=== PATIENT | male | born 1965 | race Caucasian/White ===

== ENCOUNTER 2017-04-17 13:55 | Emergency (ER) | payer MEDICAID, MEDICARE ==
[2017-04-17] MEDS ORDERED: ACETAMINOPHEN 500 MG TABLET PO STA (14:20)
--- NOTE | 2017-04-17 14:20 | ED Physician Documentation ---
History of Present Illness - Stated complaint Stated Complaint: FEVER - Chief complaint Chief Complaint: Fever - Additonal information Additional information: hx from pt fairly healthy 51 male fever and chills and fatigue and myalgia X 4 days no cough no NVD no urinary sx no rash recent travel within [place] Review of Systems Constitutional: reports: Fever, Myalgias, Fatigue Ears: denies: Ear pain Throat: denies: Sore throat Respiratory: denies: Dyspnea, Cough GI: denies: Nausea, Vomiting, Diarrhea : denies: Dysuria Musculoskeletal: denies: Neck pain Neurologic: reports: Generalized weakness. denies: Headache Endocrine: denies: Easy bruising / bleeding Immunocompromised: denies: Immunocompromised PD PAST MEDICAL HISTORY - Past Medical History Cardiovascular: Hypertension, High cholesterol, Atrial fibrillation Respiratory: COPD GI: GERD Psych: Depression, Anxiety, Bipolar disorder - Past Surgical History Past Surgical History: Yes - Present Medications Home Medications: Ambulatory Orders Medication Instructions Recorded Confirmed Albuterol Sulf [Ventolin Hfa 3 puffs PO DAILY 02/16/17 02/16/17 Inhaler] Buspirone HCl 10 mg PO TID 02/16/17 02/16/17 Cyclobenzaprine [Flexeril] 10 mg PO DAILY PM 02/16/17 02/16/17 FLUoxetine [PROzac] 10 mg PO DAILY 02/16/17 02/16/17 Famotidine 20 mg PO DAILY 02/16/17 02/16/17 Fenofibrate 160 mg PO DAILY 02/16/17 02/16/17 Fluticasone [Flonase] 2 spray ROSSY DAILY 02/16/17 02/16/17 Gabapentin 500 mg PO TID 02/16/17 02/16/17 Montelukast [Singulair] 10 mg PO DAILY 02/16/17 02/16/17 Pramipexole [Mirapex] 0.25 mg PO DAILY PM 02/16/17 02/16/17 Pravastatin [Pravachol] 20 mg PO DAILY PM 02/16/17 02/16/17 Propranolol ER [Inderal LA] 80 mg PO BID 02/16/17 02/16/17 QUEtiapine [SEROquel] 200 mg PO DAILY PM 02/16/17 02/16/17 traZODone [Desyrel] 50 mg PO DAILY PM 02/16/17 02/16/17 Amox/Clav 875/125 [Augmentin 1 tab PO BID 04/17/17 04/17/17 875/125] Azithromycin [Zithromax] 250 mg PO DAILY #6 tablet 04/17/17 - Allergies Allergies/Adverse Reactions: Allergies Allergy/AdvReac Type Severity Reaction Status Date / Time No Known Drug Allergies Allergy Verified 04/17/17 14:04 - Social History Does the pt smoke?: No Smoking Status: Never smoker Does the pt drink ETOH?: Yes Does the pt have substance abuse?: No - Immunizations Immunizations are current?: Yes - POLST Patient has POLST: No PD ED PE NORMAL - Vitals Vital signs reviewed: Yes - General General: Alert and oriented X 3 - HEENT HEENT: PERRL, Moist mucous membranes, Pharynx benign - Neck Neck: Supple, no meningeal sign - Cardiac Cardiac: RRR - Respiratory Respiratory: No respiratory distress, Clear bilaterally - Abdomen Abdomen: Soft, Non tender - Derm Derm: Normal color, No rash - Extremities Extremities: No deformity - Neuro Neuro: Alert and oriented X 3 Results - Vitals Vitals: Vital Signs - 24 hr 04/17/17 14:01 Temperature 38.9 C H Heart Rate 89 Respiratory 16 Rate Blood Pressure 144/54 H O2 Saturation 97 Oxygen O2 Source Room air - Labs Labs: Laboratory Tests 04/17/17 04/17/17 14:30 14:30 Urine Color YELLOW Urine Clarity CLEAR Urine pH 7.0 Ur Specific [place] 1.015 Urine Protein NEGATIVE Urine Glucose (UA) NEGATIVE Urine Ketones NEGATIVE Urine Occult Blood NEGATIVE Urine Nitrite NEGATIVE Urine Bilirubin NEGATIVE Urine Urobilinogen 0.2 (NORMAL) Ur Leukocyte Esterase NEGATIVE Ur Microscopic Review NOT INDICATED Urine Culture Comments NOT INDICATED Influenza A (Rapid) Negative Influenza B (Rapid) Negative Influenza Types A,B Ag - PD MEDICAL DECISION MAKING - ED course ED course: fairly healthy 51 male with fever chills myalgias but no SWAIN or stiff neck no sore throat no cough no abd pain NVD no urinary sx my be viral, may be influenza will check common sources UA flu CXR CXR shows a small basliar infiltartes per rad read will tx with zmax Departure - Departure Disposition: 01 Home, Self Care Clinical Impression: Pneumonia Qualifiers: Pneumonia type: due to unspecified organism Laterality: unspecified laterality Lung location: unspecified part of lung Qualified Code(s): J18.9 - Pneumonia, unspecified organism Condition: Good Instructions: ED Fever Control, ED Pneumonia Adult Follow-Up: Jeff Lazaro MD [Primary Care Provider] - Prescriptions: Azithromycin [Zithromax] 250 mg PO DAILY #6 tablet Comments: The influenza swabs were negative and the urine did not show an infection But the chest xary shows a small area concerning for pneumonia developing. So I have prescribed antibiotics. Also recommend tylenol and motrin as needed for fever and body aches Follow up with your PMD for a recheck this week. Return to the ER if worse or new symptoms develop
[2017-04-17 14:38] LABS: BILIRUBIN,URINE NEGATIVE (NEGATIVE); GLUCOSE, URINE (UA) NEGATIVE (NEGATIVE); KETONES,URINE (UA) NEGATIVE (NEGATIVE); LEUKOCYTE ESTERASE, URINE NEGATIVE (NEGATIVE); NITRITE,URINE NEGATIVE (NEGATIVE); OCCULT BLOOD,URINE NEGATIVE (NEGATIVE); PROTEIN,URINE NEGATIVE (NEGATIVE); UROBILINOGEN,URINE 0.2 (NORMAL) E.U./dL (NORMAL)
[2017-04-17 14:40] LABS: CLARITY,URINE CLEAR (CLEAR)
--- NOTE | 2017-04-17 15:11 | XRAY Report ---
EXAM: CHEST RADIOGRAPHY EXAM DATE: 04/17/2017 02:53 PM. CLINICAL HISTORY: Fever. COMPARISON: 02/16/2017. TECHNIQUE: 2 views. FINDINGS: Lungs/Pleura: Lung volumes are somewhat low. There is mild bibasal opacity, atelectasis versus infilt rate. No convincing pleural effusion or pneumothorax. Mediastinum: Heart and mediastinal contours are unremarkable. Other: None. IMPRESSION: Somewhat low lung volumes with mild bibasal opacity, atelectasis versus infiltrate. [facility] Referring Provider Line: [phone] SITE ID: [id number]
--- NOTE | 2017-04-17 15:11 | XRAY Preliminary Report ---
Exam: XR CHEST 2 VIEW X-RAY IMPRESSION: Somewhat low lung volumes with mild bibasal opacity, atelectasis versus infiltrate. [facility] SITE ID: [id number]
[2017-04-17 15:29] VITALS: BP 116/72
== END 2017-04-17 15:28 | disposition home or self-care (01) ==
LOC: ED 13:55
DX: J18.9 Pneumonia, unspecified organism (principal); J44.0 Chronic obstructive pulmonary disease with (acute) lower respiratory infection; I10 Essential (primary) hypertension; E78.00 Pure hypercholesterolemia, unspecified
CPT/HCPCS: 71046; 81003; 87275; 87276; 99283; A9270; 81001; 87086

== ENCOUNTER 2017-07-13 08:00 | Outpatient (CLI) | payer MEDICARE ==
[2017-07-13 12:38] LABS: BASOPHILS % (AUTO) 0.3 %; EOSINOPHILS # (AUTO) 0.1 10^3/uL (0.0-0.7); EOSINOPHILS % (AUTO) 2.2 %; HGB - HEMOGLOBIN 13.3 g/dL (14.0-18.0); LYMPHOCYTES # (AUTO) 1.5 10^3/uL (1.5-3.5); LYMPHOCYTES % (AUTO) 26.6 %; MEAN CORPUSCULAR HEMOGLOBIN 30.3 pg (27.0-31.0); MEAN CORPUSCULAR HGB CONC 34.7 g/dL (32.0-36.0); MEAN CORPUSCULAR VOLUME 87.2 fL (80.0-94.0); MEAN PLATELET VOLUME 8.1 fL (7.4-11.4); MONOCYTES # (AUTO) 0.5 10^3/uL (0.0-1.0); MONOCYTES % (AUTO) 9.5 %; NEUTROPHILS # (AUTO) 3.5 10^3/uL (1.5-6.6); NEUTROPHILS % (AUTO) 61.4 %; PLT - PLATELET COUNT 201 10^3/uL (130-450); RED BLOOD COUNT 4.39 10^6/uL (4.70-6.10); RED CELL DISTRIBUTION WIDTH 13.9 % (12.0-15.0); WHITE BLOOD COUNT 5.6 x10^3/uL (4.8-10.8)
[2017-07-13 13:01] LABS: ALBUMIN 4.1 g/dL (3.2-5.5); ALBUMIN/GLOBULIN RATIO 1.2 (1.0-2.2); ALKALINE PHOSPHATASE 40 IU/L (42-121); ALT ALANINE AMINOTRANSFERASE 30 IU/L (10-60); AST ASPARTATE AMINOTRANSFERASE 33 IU/L (10-42); BILIRUBIN,TOTAL 0.6 mg/dL (0.2-1.0); BUN - BLOOD UREA NITROGEN 20 mg/dL (6-20); CALCIUM 9.1 mg/dL (8.5-10.3); CARBON DIOXIDE - CO2 24 mmol/L (21-32); CHLORIDE 103 mmol/L (101-111); CHOL/HDL RATIO 4.4 (<5.0); CHOLESTEROL 149 mg/dL; CREATININE 1.2 mg/dL (0.6-1.2); GFR - MDRD 64 (>89); GLUCOSE 104 mg/dL (70-100); HDL CHOLESTEROL 34 mg/dL; LDL CHOLESTEROL,CALCULATED 92 mg/dL; LDL/HDL RATIO 2.7 (<3.6); SODIUM 133 mmol/L (135-145); TOTAL PROTEIN 7.6 g/dL (6.7-8.2); VLDL CHOLESTEROL 23 mg/dL
== END 2017-07-13 08:01 | disposition home or self-care (01) ==
LOC: LAB.WCP 08:00
PROVIDERS: ATTEND Family Medicine
DX: Z12.5 Encounter for screening for malignant neoplasm of prostate (principal); E78.5 Hyperlipidemia, unspecified; J45.998 Other asthma; M54.5 Low back pain; F31.9 Bipolar disorder, unspecified
CPT/HCPCS: 36415; 80053; 80061; 84443; 85025; G0103; 83721; 84153

== ENCOUNTER 2017-07-18 13:58 | Outpatient (CLI) | payer MEDICARE, MEDICAID | END 2017-07-18 13:59 | disposition home or self-care (01) | LOC: SC 13:58 | PROVIDERS: ATTEND Internal Medicine Pulmonary Disease | DX: G47.33 Obstructive sleep apnea (adult) (pediatric) (principal) | CPT/HCPCS: 99203; G0463; 99212 ==

== ENCOUNTER 2017-08-11 09:44 | Outpatient (CLI) | payer MEDICARE, MEDICAID ==
[2017-08-11 13:20] LABS: BASOPHILS % (AUTO) 0.3 %; EOSINOPHILS # (AUTO) 0.2 10^3/uL (0.0-0.7); HGB - HEMOGLOBIN 13.5 g/dL (14.0-18.0); LYMPHOCYTES # (AUTO) 1.6 10^3/uL (1.5-3.5); LYMPHOCYTES % (AUTO) 25.8 %; MEAN CORPUSCULAR HEMOGLOBIN 30.2 pg (27.0-31.0); MEAN CORPUSCULAR HGB CONC 34.4 g/dL (32.0-36.0); MEAN PLATELET VOLUME 8.2 fL (7.4-11.4); MONOCYTES # (AUTO) 0.5 10^3/uL (0.0-1.0); MONOCYTES % (AUTO) 7.3 %; NEUTROPHILS % (AUTO) 63.6 %; PLT - PLATELET COUNT 196 10^3/uL (130-450); RED BLOOD COUNT 4.45 10^6/uL (4.70-6.10); RED CELL DISTRIBUTION WIDTH 13.6 % (12.0-15.0); WHITE BLOOD COUNT 6.3 x10^3/uL (4.8-10.8)
[2017-08-11 13:46] LABS: ALBUMIN 4.2 g/dL (3.2-5.5); ALBUMIN/GLOBULIN RATIO 1.2 (1.0-2.2); ALKALINE PHOSPHATASE 37 IU/L (42-121); ALT ALANINE AMINOTRANSFERASE 33 IU/L (10-60); AST ASPARTATE AMINOTRANSFERASE 38 IU/L (10-42); BILIRUBIN,TOTAL 0.6 mg/dL (0.2-1.0); BUN - BLOOD UREA NITROGEN 18 mg/dL (6-20); CARBON DIOXIDE - CO2 26 mmol/L (21-32); CHLORIDE 99 mmol/L (101-111); CHOL/HDL RATIO 4.5 (<5.0); CHOLESTEROL 166 mg/dL; CREATININE 1.4 mg/dL (0.6-1.2); GFR - MDRD 53 (>89); GLUCOSE 89 mg/dL (70-100); HDL CHOLESTEROL 37 mg/dL; LDL CHOLESTEROL,CALCULATED 100 mg/dL; LDL/HDL RATIO 2.7 (<3.6); SODIUM 132 mmol/L (135-145); TOTAL PROTEIN 7.7 g/dL (6.7-8.2); VLDL CHOLESTEROL 29 mg/dL
== END 2017-08-11 09:45 | disposition home or self-care (01) ==
LOC: LAB.WCP 09:44
PROVIDERS: ATTEND Family Medicine
DX: E78.5 Hyperlipidemia, unspecified (principal); J45.998 Other asthma; M54.5 Low back pain; F31.9 Bipolar disorder, unspecified
CPT/HCPCS: 36415; 80053; 80061; 83721; 84443; 85025

== ENCOUNTER 2017-11-16 23:57 | Outpatient (CLI) | payer MEDICARE, MEDICAID ==
[2017-11-16 18:49] LABS: BASOPHILS % (AUTO) 0.4 %; EOSINOPHILS # (AUTO) 0.2 10^3/uL (0.0-0.7); EOSINOPHILS % (AUTO) 2.9 %; HGB - HEMOGLOBIN 13.4 g/dL (14.0-18.0); LYMPHOCYTES # (AUTO) 1.5 10^3/uL (1.5-3.5); LYMPHOCYTES % (AUTO) 25.2 %; MEAN CORPUSCULAR HEMOGLOBIN 30.8 pg (27.0-31.0); MEAN CORPUSCULAR HGB CONC 34.3 g/dL (32.0-36.0); MEAN CORPUSCULAR VOLUME 89.8 fL (80.0-94.0); MEAN PLATELET VOLUME 8.1 fL (7.4-11.4); MONOCYTES # (AUTO) 0.5 10^3/uL (0.0-1.0); MONOCYTES % (AUTO) 8.7 %; NEUTROPHILS # (AUTO) 3.6 10^3/uL (1.5-6.6); NEUTROPHILS % (AUTO) 62.8 %; PLT - PLATELET COUNT 189 10^3/uL (130-450); RED BLOOD COUNT 4.34 10^6/uL (4.70-6.10); RED CELL DISTRIBUTION WIDTH 14.1 % (12.0-15.0); WHITE BLOOD COUNT 5.8 x10^3/uL (4.8-10.8)
[2017-11-16 19:07] LABS: ALBUMIN/GLOBULIN RATIO 1.1 (1.0-2.2); BILIRUBIN,TOTAL 0.8 mg/dL (0.2-1.0); CALCIUM 9.3 mg/dL (8.5-10.3); CREATININE 1.2 mg/dL (0.6-1.2); TOTAL PROTEIN 7.6 g/dL (6.7-8.2)
== END 2017-11-16 23:58 | disposition home or self-care (01) ==
LOC: LAB.WCP 23:57
PROVIDERS: ATTEND Family Medicine
DX: R06.09 Other forms of dyspnea (principal); G47.9 Sleep disorder, unspecified; M54.5 Low back pain; F31.9 Bipolar disorder, unspecified
CPT/HCPCS: 36415; 80053; 83880; 84443; 85025

== ENCOUNTER 2017-11-17 14:44 | Outpatient (CLI) | payer MEDICARE, MEDICAID ==
[2017-11-17 19:23] LABS: RHEUMATOID FACTOR NEGATIVE (Negative)
[2017-11-17 19:38] LABS: URIC ACID 5.9 mg/dL (2.6-7.2)
[2017-11-17 19:50] LABS: CRP - C-REACTIVE PROTEIN < 1.0 mg/dL (0-1.0)
== END 2017-11-17 14:45 | disposition home or self-care (01) ==
LOC: LAB.WCP 14:44
PROVIDERS: ATTEND Family Medicine
DX: M25.50 Pain in unspecified joint (principal)
CPT/HCPCS: 36415; 84550; 85651; 86140; 86430

== ENCOUNTER 2017-12-01 18:29 | Emergency (ER) | payer MEDICARE, MEDICAID ==
--- NOTE | 2017-12-01 20:19 | ED Physician Documentation ---
PD HPI BACK INJURY - Stated complaint Stated Complaint: BACK PX - History obtained from History obtained from: Patient - History of Present Illness Location: Left, Lower Type of injury: Fall (he says board on deck broke and he fell backward (did not fall through deck or such). He had twist and then fell back, but denies significant impact to back. Pain in left lower back developed more a couple of hours after the injury after resting.) Where injury occurred: Home Timing - onset: Today Timing - duration: Hours Timing - details: Abrupt onset, Still present, Waxing and waning Review of Systems Constitutional: denies: Fever, Chills, Myalgias Cardiac: denies: Chest pain / pressure Respiratory: denies: Dyspnea, Cough GI: denies: Abdominal Pain, Vomiting, Diarrhea Skin: denies: Abrasion (s), Laceration (s) Musculoskeletal: reports: Back pain. denies: Neck pain Neurologic: denies: Focal weakness, Numbness, Altered mental status, Headache, Head injury PD PAST MEDICAL HISTORY - Past Medical History Cardiovascular: Hypertension, High cholesterol, Atrial fibrillation Respiratory: COPD GI: GERD Psych: Depression, Anxiety, Bipolar disorder - Past Surgical History Past Surgical History: Yes - Present Medications Home Medications: Ambulatory Orders Medication Instructions Recorded Confirmed Albuterol Sulf [Ventolin Hfa 3 puffs PO DAILY 02/16/17 02/16/17 Inhaler] Buspirone HCl 17,515 mg PO TID 02/16/17 02/16/17 Cyclobenzaprine [Flexeril] 10 mg PO DAILY PM 02/16/17 02/16/17 FLUoxetine [PROzac] 10 mg PO DAILY 02/16/17 02/16/17 Famotidine 20 mg PO DAILY 02/16/17 02/16/17 Fenofibrate 160 mg PO DAILY 02/16/17 02/16/17 Fluticasone [Flonase] 2 spray ROSSY DAILY 02/16/17 02/16/17 Gabapentin 500 mg PO TID 02/16/17 02/16/17 Montelukast [Singulair] 10 mg PO DAILY 02/16/17 02/16/17 Pramipexole [Mirapex] 0.25 mg PO DAILY PM 02/16/17 02/16/17 Pravastatin [Pravachol] 20 mg PO DAILY PM 02/16/17 02/16/17 Propranolol ER [Inderal LA] 80 mg PO BID 02/16/17 02/16/17 QUEtiapine [SEROquel] 200 mg PO DAILY PM 02/16/17 02/16/17 traZODone [Desyrel] 50 mg PO DAILY PM 02/16/17 02/16/17 Dexamethasone [Decadron] 4 mg PO DAILY #5 tablet 12/01/17 Finasteride 5 mg PO 12/01/17 HYDROcod/ACETAM 5/325 [[place] 5/325] 1 tab PO Q6H PRN #15 tablet 12/01/17 buPROPion [Wellbutrin Sr] 100 mg PO DAILY 12/01/17 12/01/17 diazePAM [Diazepam] 5 mg ORAL BID 12/01/17 12/01/17 diazePAM [Diazepam] 5 mg PO TID PRN #20 tablet 12/01/17 - Allergies Allergies/Adverse Reactions: Allergies Allergy/AdvReac Type Severity Reaction Status Date / Time No Known Drug Allergies Allergy Verified 12/01/17 19:49 - Social History Does the pt smoke?: No Smoking Status: Never smoker Does the pt drink ETOH?: Yes Does the pt have substance abuse?: No - Immunizations Immunizations are current?: Yes - POLST Patient has POLST: No PD ED PE NORMAL - Vitals Vital signs reviewed: Yes - General General: Alert and oriented X 3, Well developed/nourished, Other (appears uncomfortable with ROM of low back; not appearing in much pain with rest. ) - HEENT HEENT: Atraumatic - Neck Neck: Supple, no meningeal sign, No bony TTP - Cardiac Cardiac: RRR, No murmur - Respiratory Respiratory: Clear bilaterally, Other (no chestwall tenderness. ) - Abdomen Abdomen: Soft, Non tender - Back Back: No CVA TTP, No spinal TTP, Other (tender in left lower lumbar muscles without obfious deformity. ) - Derm Derm: Normal color, Warm and dry - Extremities Extremities: No deformity, No tenderness to palpate, Normal ROM s pain, No edema , No calf tenderness / cord - Neuro Neuro: Alert and oriented X 3, No motor deficit, No sensory deficit, Normal speech, Other (normal reflexes at knees. ) Results - Vitals Vitals: Oxygen O2 Source Room air PD MEDICAL DECISION MAKING - ED course Complexity details: reviewed old records ([facility]), reviewed results (shared decision to not get imaging as very low suspicion for bony injury anew. ), considered differential (he does not feel he injured/impacted enough for cocner of fracture. Feels it is muscular. ), d/w patient - Sepsis Event Vital Signs: Oxygen O2 Source Room air Departure - Departure Disposition: 01 Home, Self Care Clinical Impression: Low back strain Qualifiers: Encounter type: initial encounter Qualified Code(s): S39.012A - Strain of muscle, fascia and tendon of lower back, initial encounter Accidental fall Qualifiers: Encounter type: initial encounter Qualified Code(s): W19.XXXA - Unspecified fall, initial encounter Condition: Stable Record reviewed to determine appropriate education?: Yes Instructions: ED Sprain Strain Lumbar Follow-Up: Jeff Lazaro MD [Primary Care Provider] - Prescriptions: Dexamethasone [Decadron] 4 mg PO DAILY #5 tablet diazePAM [Diazepam] 5 mg PO TID PRN #20 tablet PRN Reason: Spasms HYDROcod/ACETAM 5/325 [[place] 5/325] 1 tab PO Q6H PRN #15 tablet PRN Reason: Pain Comments: Heat and gentle stretching for the low back. Physical treatment such as chiropractic and massage would be great. He can use ibuprofen or naproxen 2-3 times a day. Add diazepam if needed for muscle spasms and hydrocodone if needed for pain. Decadron anti-inflammatory daily for 5 more days. Recheck with your primary care if not improved over the next few days to week with these treatments. Discharge Date/Time: 12/01/17 21:52
[2017-12-01] MEDS ORDERED: KETOROLAC 30 MG/ML VIAL IM STA (20:46)
[2017-12-01] MEDS ORDERED: HYDROmorphone 2 MG/ML VIAL IM STA (20:46)
[2017-12-01] MEDS ORDERED: diazePAM 5 MG TABLET PO STA (20:48)
[2017-12-01] MEDS ORDERED: DEXAMETHASONE 10 MG/ML VIAL PO STA (20:48)
[2017-12-01 21:44] VITALS: BP 121/75
== END 2017-12-01 21:52 | disposition home or self-care (01) ==
LOC: ED 18:29
DX: S39.012A Strain of muscle, fascia and tendon of lower back, initial encounter (principal); W17.89XA Other fall from one level to another, initial encounter; X50.9XXA Other and unspecified overexertion or strenuous movements or postures, initial encounter; Y93.01 Activity, walking, marching and hiking; Y92.007 Garden or yard of unspecified non-institutional (private) residence as the place of occurrence of the external cause; I10 Essential (primary) hypertension; E78.00 Pure hypercholesterolemia, unspecified
CPT/HCPCS: 96372; 99283; A9270; J1170

== ENCOUNTER 2018-01-19 11:44 | Outpatient (CLI) | payer MEDICARE, MEDICAID ==
[2018-01-20 13:48] LABS: HEPATITIS A IGM NON-REACTIVE (NON-REACTIVE); HEPATITIS B CORE ANTIBODY IGM NON-REACTIVE (NON-REACTIVE); HEPATITIS B SURFACE ANTIGEN NON-REACTIVE (NON-REACTIVE); HEPATITIS C ANTIBODY NON-REACTIVE (NON-REACTIVE)
== END 2018-01-19 11:45 | disposition home or self-care (01) ==
LOC: LAB.WCP 11:44
PROVIDERS: ATTEND Family Medicine
DX: Z78.9 Other specified health status (principal)
CPT/HCPCS: 36415; 80074

== ENCOUNTER 2018-03-11 10:37 | Emergency (ER) | payer MEDICARE, MEDICAID ==
[2018-03-11 11:01] VITALS: BP 121/69
[2018-03-11] MEDS ORDERED: KETOROLAC 60 MG/2 ML VIAL IM STA (12:05)
--- NOTE | 2018-03-11 12:07 | ED Physician Documentation ---
PD HPI BACK PAIN - Stated complaint Stated Complaint: BACK PX - Chief complaint Chief Complaint: Back Pain - History obtained from History obtained from: Patient - History of Present Illness Timing - onset: Other (52-year-old gentleman with chronic recurrent back pain presents with flare of back pain that started after sweeping a floor 3 days ago. It is in the right lumbar area. It does not radiate. There is no associated weakness, numbness, or tingling in the legs or groin. No saddle anesthesia or fevers or incontinence.) Review of Systems Constitutional: denies: Fever, Chills Respiratory: denies: Dyspnea, Cough GI: denies: Abdominal Pain, Nausea, Vomiting PD PAST MEDICAL HISTORY - Past Medical History Past Medical History: Yes Cardiovascular: Hypertension, High cholesterol, Atrial fibrillation Respiratory: COPD Neuro: None Endocrine/Autoimmune: None GI: GERD : None HEENT: None Psych: Depression, Anxiety, Bipolar disorder Musculoskeletal: Osteoarthritis, Fibromyalgia, Chronic back pain Derm: None - Past Surgical History Past Surgical History: Yes Ortho: Spine surgery, Other - Present Medications Home Medications: Ambulatory Orders Medication Instructions Recorded Confirmed Albuterol Sulf [Ventolin Hfa 3 puffs PO DAILY 02/16/17 02/16/17 Inhaler] Buspirone HCl 1 tab PO TID 02/16/17 02/16/17 Cyclobenzaprine [Flexeril] 10 mg PO DAILY PM 02/16/17 02/16/17 FLUoxetine [PROzac] 20 mg PO DAILY 02/16/17 02/16/17 Famotidine 20 mg PO DAILY 02/16/17 02/16/17 Fenofibrate 160 mg PO DAILY 02/16/17 02/16/17 Fluticasone [Flonase] 2 spray ROSSY DAILY 02/16/17 03/11/18 Gabapentin 500 mg PO TID 02/16/17 03/11/18 Montelukast [Singulair] 10 mg PO DAILY 02/16/17 03/11/18 Pramipexole [Mirapex] 0.25 mg PO DAILY PM 02/16/17 03/11/18 Pravastatin [Pravachol] 20 mg PO DAILY PM 02/16/17 03/11/18 Propranolol ER [Inderal LA] 80 mg PO BID 02/16/17 03/11/18 QUEtiapine [SEROquel] 200 mg PO DAILY PM 02/16/17 03/11/18 traZODone [Desyrel] 50 mg PO DAILY PM PRN 02/16/17 03/11/18 Finasteride 2.5 mg PO 12/01/17 buPROPion [Wellbutrin Sr] 175 mg PO DAILY 12/01/17 12/01/17 diazePAM [Diazepam] 5 mg ORAL BID 12/01/17 03/11/18 Hydrocodone/Acetaminophen 1 - 2 each PO Q6H PRN #10 tablet 03/11/18 [Hydrocodon-Acetaminophen 5-325] Ramelteon [Rozerem] 1 tab ORAL DAILY 03/11/18 03/11/18 - Allergies Allergies/Adverse Reactions: Allergies Allergy/AdvReac Type Severity Reaction Status Date / Time No Known Drug Allergies Allergy Verified 03/11/18 11:01 - Social History Does the pt smoke?: No Smoking Status: Former smoker Does the pt drink ETOH?: No Does the pt have substance abuse?: No - Immunizations Immunizations are current?: Yes - POLST Patient has POLST: No PD ED PE NORMAL - Vitals Vital signs reviewed: Yes - General General: Alert and oriented X 3, No acute distress - Abdomen Abdomen: Normal bowel sounds, Soft, Non tender - Back Back: No spinal TTP, Other (Muscular tenderness of the right paralumbar muscles. The patient has equal and normal Achilles and patellar reflexes bilaterally. Normal sensation in all areas of the legs. Patient denies saddle anesthesia. Normal strength in flexion-extension at the ankles, knees, and flexion of the hips.) - Neuro Neuro: Alert and oriented X 3, Normal speech Results - Vitals Vitals: Vital Signs - 24 hr 03/11/18 10:59 Temperature 35.7 C L Heart Rate 76 Respiratory 15 Rate Blood Pressure 121/69 O2 Saturation 96 Oxygen O2 Source Room air PD MEDICAL DECISION MAKING - ED course ED course: This patient has seemingly uncomplicated musculoskeletal back pain. The patient has no "red flags." Specifically denies IV drug use, fevers, incontinence, saddle anesthesia. Spinal epidural abscess was considered, given that the patient has no fever, is not diabetic, has no spinal tenderness, does not use IV drugs, and has no bilateral neurologic symptoms, the diagnosis of spinal epidural abscess is considered exceedingly unlikely. The [place] prescription monitoring program was queried with regard to this patient. No concerning findings were found. Departure - Departure Disposition: 01 Home, Self Care Clinical Impression: Low back strain Qualifiers: Encounter type: initial encounter Qualified Code(s): S39.012A - Strain of muscle, fascia and tendon of lower back, initial encounter Condition: Good Record reviewed to determine appropriate education?: Yes Instructions: ED Low Back Pain Injury Prescriptions: Hydrocodone/Acetaminophen [Hydrocodon-Acetaminophen 5-325] 1 - 2 each PO Q6H PRN #10 tablet PRN Reason: pain Comments: Call your doctor to arrange a follow-up appointment, make the next available appointment. In the interim, return anytime if worse or if new symptoms develop. Do not drink or drive while taking narcotic pain medication. Note that many narcotic pain relievers also contain Tylenol/acetaminophen. Please ensure that your total dose of acetaminophen from all sources does not exceed 3 g (3000 mg) per day. You may get constipated while on this medication. Take a stool softener such as Colace twice a day while you are on it. Also add an [id number] laxative such as senna or MiraLAX on any day that you do not have a bowel movement. If you received a narcotic pain medication or sedative while in the emergency department, do not drive for the next 24 hours.
== END 2018-03-11 12:35 | disposition home or self-care (01) ==
LOC: ED 10:37
DX: S39.012A Strain of muscle, fascia and tendon of lower back, initial encounter (principal); X58.XXXA Exposure to other specified factors, initial encounter; Z87.891 Personal history of nicotine dependence
CPT/HCPCS: 96372; 99283

== ENCOUNTER 2018-05-01 14:19 | Outpatient (CLI) | payer MEDICARE, MEDICAID | END 2018-05-01 14:20 | disposition home or self-care (01) | LOC: SC 14:19 | PROVIDERS: ATTEND Internal Medicine Pulmonary Disease | DX: G47.33 Obstructive sleep apnea (adult) (pediatric) (principal) | CPT/HCPCS: 99213; G0463; 99212 ==

== ENCOUNTER 2018-05-13 19:20 | Emergency (ER) | payer MEDICARE, MEDICAID ==
--- NOTE | 2018-05-13 19:50 | ED Physician Documentation ---
PD HPI URI - Stated complaint Stated Complaint: COUGH/RUNNY NOSE - Chief complaint Chief Complaint: Resp - History obtained from History obtained from: Patient, Caregiver - History of Present Illness Timing - onset: Other (Is been sick for 2 days, it started with a tickle in his throat and developed more sore throat. Feels like his voice is deeper and he has just a bit of a cough without shortness of breath. He has had chills but no measured fevers. No body aches.) Review of Systems Constitutional: reports: Chills. denies: Fever Nose: reports: Rhinorrhea / runny nose Throat: reports: Sore throat Respiratory: reports: Dyspnea. denies: Cough (mild) PD PAST MEDICAL HISTORY - Past Medical History Past Medical History: No Cardiovascular: Hypertension, High cholesterol, Atrial fibrillation Respiratory: COPD Neuro: None Endocrine/Autoimmune: None GI: GERD : None HEENT: None Psych: Depression, Anxiety, Bipolar disorder Musculoskeletal: Osteoarthritis, Fibromyalgia, Chronic back pain Derm: None - Past Surgical History Past Surgical History: Yes Ortho: Arthroscopic surgery, Spine surgery, Other - Present Medications Home Medications: Ambulatory Orders Medication Instructions Recorded Confirmed Albuterol Sulf [Ventolin Hfa 3 puffs PO DAILY 02/16/17 02/16/17 Inhaler] Buspirone HCl 1 tab PO TID 02/16/17 02/16/17 Cyclobenzaprine [Flexeril] 10 mg PO DAILY PM 02/16/17 02/16/17 Famotidine 20 mg PO DAILY 02/16/17 02/16/17 Fenofibrate 160 mg PO DAILY 02/16/17 02/16/17 Fluticasone [Flonase] 2 spray ROSSY DAILY 02/16/17 03/11/18 Montelukast [Singulair] 10 mg PO DAILY 02/16/17 03/11/18 Pramipexole [Mirapex] 0.25 mg PO DAILY PM 02/16/17 03/11/18 Pravastatin [Pravachol] 20 mg PO DAILY PM 02/16/17 03/11/18 Propranolol ER [Inderal LA] 80 mg PO BID 02/16/17 03/11/18 QUEtiapine [SEROquel] 200 mg PO DAILY PM 02/16/17 03/11/18 traZODone [Desyrel] 50 mg PO DAILY PM PRN 02/16/17 03/11/18 Finasteride 2.5 mg PO 12/01/17 buPROPion [Wellbutrin Sr] 175 mg PO DAILY 12/01/17 12/01/17 diazePAM [Diazepam] 5 mg ORAL BID 12/01/17 03/11/18 Ramelteon [Rozerem] 1 tab ORAL DAILY 03/11/18 03/11/18 - Allergies Allergies/Adverse Reactions: Allergies Allergy/AdvReac Type Severity Reaction Status Date / Time acetaminophen [From Vicodin] AdvReac Emesis Verified 05/13/18 19:26 hydrocodone [From Vicodin] AdvReac Emesis Verified 05/13/18 19:26 - Social History Does the pt smoke?: No Smoking Status: Former smoker Does the pt drink ETOH?: No Does the pt have substance abuse?: No - Immunizations Immunizations are current?: Yes - POLST Patient has POLST: No PD ED PE NORMAL - Vitals Vital signs reviewed: Yes - General General: Alert and oriented X 3, No acute distress - HEENT HEENT: Ears normal, Pharynx benign - Neck Neck: Supple, no meningeal sign, No bony TTP - Cardiac Cardiac: RRR, No murmur - Respiratory Respiratory: No respiratory distress, Clear bilaterally - Abdomen Abdomen: Non tender - Derm Derm: No rash - Neuro Neuro: Alert and oriented X 3, Normal speech Results - Vitals Vitals: Vital Signs - 24 hr 05/13/18 19:23 Temperature 36.5 C Heart Rate 74 Respiratory 18 Rate Blood Pressure 141/67 H O2 Saturation 97 Oxygen O2 Source Room air - Labs Labs: Laboratory Tests 05/13/18 05/13/18 19:59 19:59 Influenza A (Rapid) Negative Influenza B (Rapid) Negative Group A Strep Rapid Negative Departure - Departure Disposition: 01 Home, Self Care Clinical Impression: Upper respiratory tract infection Qualifiers: URI type: unspecified viral URI Qualified Code(s): J06.9 - Acute upper respiratory infection, unspecified Condition: Good Record reviewed to determine appropriate education?: Yes Instructions: ED Upper Resp Infec No Abx Tx Comments: Continue the conservative treatments recommended by her pharmacist. Return for new or worsening symptoms. Follow-up with your doctor at the end of the week if not better.
[2018-05-13 20:29] VITALS: BP 130/68
== END 2018-05-13 20:29 | disposition home or self-care (01) ==
LOC: ED 19:20
DX: J06.9 Acute upper respiratory infection, unspecified (principal); J44.9 Chronic obstructive pulmonary disease, unspecified; Z87.891 Personal history of nicotine dependence; I10 Essential (primary) hypertension
CPT/HCPCS: 87070; 87275; 87276; 87430; 99282; 99283

== ENCOUNTER 2018-06-07 13:23 | Outpatient (CLI) | payer MEDICARE, MEDICAID | END 2018-06-07 13:24 | disposition home or self-care (01) | LOC: SC 13:23 | PROVIDERS: ATTEND Internal Medicine Pulmonary Disease | DX: G47.33 Obstructive sleep apnea (adult) (pediatric) (principal) | CPT/HCPCS: 99213; G0463; 99212 ==

== ENCOUNTER 2018-09-08 15:29 | Emergency (ER) | payer MEDICARE, MEDICAID ==
[2018-09-08 15:44] VITALS: BP 121/65
[2018-09-08] MEDS ORDERED: DEXAMETHASONE 10 MG/ML VIAL PO STA (16:09)
[2018-09-08] MEDS ORDERED: CHERRY SYRUP 10 ML UDC PO ONE (16:09)
[2018-09-08] MEDS ORDERED: KETOROLAC 60 MG/2 ML VIAL IM STA (16:09)
--- NOTE | 2018-09-08 16:13 | ED Physician Documentation ---
History of Present Illness - Stated complaint Stated Complaint: BILAT LEG SWELL/PX - Chief complaint Chief Complaint: Ext Problem - History obtained from History obtained from: Patient, Family - History of Present Illness Timing: How many weeks ago (1) - Additonal information Additional information: 53-year-old male who has chronic lower extremity swelling and pain has developed increased pain in the left lower extremity radiating from his hip down the lateral aspect of his leg and some numbness in the foot as well. He has aching in his foot. He has not had shortness of breath and is not otherwise been ill. He does have pain in the sciatic notch on the left side. Review of Systems Constitutional: denies: Fever Eyes: denies: Decreased vision Ears: denies: Ear pain Nose: denies: Rhinorrhea / runny nose, Congestion Throat: denies: Sore throat Respiratory: denies: Cough GI: denies: Vomiting Skin: denies: Rash Musculoskeletal: reports: Back pain, Extremity pain, Extremity swelling. denies: Neck pain Neurologic: reports: Numbness. denies: Generalized weakness, Focal weakness PD PAST MEDICAL HISTORY - Past Medical History Past Medical History: Yes Cardiovascular: Hypertension, High cholesterol, Atrial fibrillation Respiratory: COPD Neuro: None Endocrine/Autoimmune: None GI: GERD : None HEENT: None Psych: Depression, Anxiety, Bipolar disorder Musculoskeletal: Osteoarthritis, Fibromyalgia, Chronic back pain Derm: None - Past Surgical History Past Surgical History: Yes Ortho: Arthroscopic surgery, Spine surgery, Other - Present Medications Home Medications: Ambulatory Orders Medication Instructions Recorded Confirmed Albuterol Sulf [Ventolin Hfa 3 puffs PO DAILY 02/16/17 02/16/17 Inhaler] Buspirone HCl 1 tab PO TID 02/16/17 02/16/17 Cyclobenzaprine [Flexeril] 10 mg PO DAILY PM 02/16/17 02/16/17 Famotidine 20 mg PO DAILY 02/16/17 02/16/17 Fenofibrate 160 mg PO DAILY 02/16/17 02/16/17 Fluticasone [Flonase] 2 spray ROSSY DAILY 02/16/17 03/11/18 Montelukast [Singulair] 10 mg PO DAILY 02/16/17 03/11/18 Pramipexole [Mirapex] 0.25 mg PO DAILY PM 02/16/17 03/11/18 Pravastatin [Pravachol] 20 mg PO DAILY PM 02/16/17 03/11/18 Propranolol ER [Inderal LA] 80 mg PO BID 02/16/17 03/11/18 QUEtiapine [SEROquel] 200 mg PO DAILY PM 02/16/17 03/11/18 traZODone [Desyrel] 50 mg PO DAILY PM PRN 02/16/17 03/11/18 Finasteride 2.5 mg PO 12/01/17 buPROPion [Wellbutrin Sr] 175 mg PO DAILY 12/01/17 12/01/17 diazePAM [Diazepam] 5 mg ORAL BID 12/01/17 03/11/18 Ramelteon [Rozerem] 1 tab ORAL DAILY 03/11/18 03/11/18 Cyclobenzaprine [Flexeril] 10 mg PO TID PRN #20 tablet 09/08/18 Oxycodone HCl/Acetaminophen 1 - 2 each PO Q6H PRN #14 tablet 09/08/18 [Percocet 5-325 mg Tablet] - Allergies Allergies/Adverse Reactions: Allergies Allergy/AdvReac Type Severity Reaction Status Date / Time hydrocodone [From Vicodin] AdvReac Emesis Verified 09/08/18 15:44 - Social History Does the pt smoke?: No Smoking Status: Never smoker Does the pt drink ETOH?: No Does the pt have substance abuse?: No - Immunizations Immunizations are current?: Yes - POLST Patient has POLST: No PD ED PE NORMAL - Vitals Vital signs reviewed: Yes (normal ) - General General: Alert and oriented X 3, No acute distress, Well developed/nourished - HEENT HEENT: Atraumatic, PERRL, EOMI - Respiratory Respiratory: No respiratory distress - Derm Derm: Normal color, Warm and dry, No rash - Extremities Extremities: No deformity, No edema, Other (There is medial thigh tenderness without palpable cord, swelling or ) - Neuro Neuro: Alert and oriented X 3, plugger man 2-12 intact, No motor deficit, No sensory deficit, Normal speech Eye Opening: Spontaneous Motor: Obeys Commands Verbal: Oriented GCS Score: 15 - Psych Psych: Normal mood, Normal affect Results - Vitals Vitals: Vital Signs - 24 hr 09/08/18 15:40 Temperature 36.9 C Heart Rate 80 Respiratory 18 Rate Blood Pressure 121/65 O2 Saturation 97 Oxygen O2 Source Room air - Rads (name of study) duplex viens left Radiology: Prelim report reviewed (Impression: No evidence for deep venous thrombosis), EMP read indepedently, See rad report PD MEDICAL DECISION MAKING - ED course Complexity details: reviewed results, re-evaluated patient, considered differential, d/w patient, d/w family ED course: 53-year-old male with pain down his left leg with some numbness to his foot has sciatica and ultrasound is obtained to rule out DVT on his leg. There is no evidence of DVT he is administered dexamethasone 10 mg orally and Toradol 60 mg IM he has some relief of his pain. Departure - Departure Disposition: 01 Home, Self Care Clinical Impression: Sciatica Qualifiers: Laterality: left Qualified Code(s): M54.32 - Sciatica, left side Condition: Stable Instructions: ED Sciatica Follow-Up: Jeff Lazaro MD [Primary Care Provider] - Prescriptions: Cyclobenzaprine [Flexeril] 10 mg PO TID PRN #20 tablet PRN Reason: Spasms Oxycodone HCl/Acetaminophen [Percocet 5-325 mg Tablet] 1 - 2 each PO Q6H PRN #14 tablet PRN Reason: pain Discharge Date/Time: 09/08/18 17:45
--- NOTE | 2018-09-08 17:40 | Ultrasound Report ---
Reason: swelling pain left leg Procedure Date: 09/08/2018 Accession Number: [id number] / [id number] Procedure: US - Duplex Ext Veins Left CPT Code: FULL RESULT: EXAM: LEFT LOWER EXTREMITY VENOUS ULTRASOUND EXAM DATE: 09/08/2018 05:14 PM. CLINICAL HISTORY: Swelling pain left leg. COMPARISON: None. TECHNIQUE: Real-time sonographic vascular imaging was performed by the proof operator through the lower extremity utilizing both color-flow and Doppler spectral analysis. Multiple business representative static images were saved for review. FINDINGS: Common Femoral Vein (CFV): Normal. CFV-GSV Junction: Normal. Femoral Vein (FV) Prox: Normal. Femoral Vein (FV) Mid: Normal. Femoral Vein (FV) Dist: Normal. Popliteal Vein: Normal. Posterior Tibial Veins: Normal. Peroneal Veins: Normal. Other: None. IMPRESSION: No evidence for deep venous thrombosis. RADIA
== END 2018-09-08 17:45 | disposition home or self-care (01) ==
LOC: ED 15:29
DX: M54.32 Sciatica, left side (principal); I10 Essential (primary) hypertension
CPT/HCPCS: 93971; 96372; 99283; A9270

== ENCOUNTER 2018-10-05 15:15 | Emergency (ER) | payer MEDICARE, MEDICAID ==
[2018-10-05] MEDS ORDERED: ASPIRIN CHEW 81 MG TABLET PO STA (15:28)
[2018-10-05] MEDS ORDERED: NITROGLYCERIN SL 0.4 MG TABLET SL STA (15:28)
--- NOTE | 2018-10-05 15:32 | ED Physician Documentation ---
PD HPI CHEST PAIN - Stated complaint Stated Complaint: CP/LT ARM PX - Chief complaint Chief Complaint: Cardiac - History obtained from History obtained from: Patient - History of Present Illness Timing - onset: Last night Timing - onset during: Rest Timing - duration: Minutes ("a few") Timing - details: Intermittant Location: Left chest Associated symptoms: Shortness of air, Diaphoresis (last night), Nausea. No: Vomiting Similar symptoms before: Has not had sx before - Additional information Additional information: The patient is a 53-year-old male with a history of hypertension, atrial fibrillation, COPD, and gastroesophageal reflux, who presents with left anterior chest pain that first started last night and has been intermittent since that time. The episodes are brief in duration, lasting up to about 2 minutes at a time. He reports associated shortness of breath and nausea without vomiting. He was mildly diaphoretic at first onset last night. He also reports nonproductive cough, without fever. He denies history of similar symptoms in the past. He currently reports slight anterior chest discomfort. Review of Systems Constitutional: denies: Fever, Fatigue Ears: denies: Tinnitus/ringing Nose: denies: Congestion Throat: denies: Sore throat Cardiac: reports: Chest pain / pressure Respiratory: reports: Cough (nonproductive) GI: reports: Nausea. denies: Abdominal Pain, Vomiting : denies: Dysuria Skin: denies: Rash Musculoskeletal: denies: Back pain, Extremity swelling Neurologic: denies: Focal weakness, Numbness, Headache PD PAST MEDICAL HISTORY - Past Medical History Cardiovascular: Hypertension, High cholesterol, Atrial fibrillation Respiratory: COPD Neuro: None Endocrine/Autoimmune: None GI: GERD : None HEENT: None Psych: Depression, Anxiety, Bipolar disorder Musculoskeletal: Osteoarthritis, Fibromyalgia, Chronic back pain Derm: None - Past Surgical History Past Surgical History: Yes Ortho: Arthroscopic surgery, Spine surgery, Other - Present Medications Home Medications: Ambulatory Orders Medication Instructions Recorded Confirmed Albuterol Sulf [Ventolin Hfa 3 puffs PO DAILY 02/16/17 02/16/17 Inhaler] Buspirone HCl 1 tab PO TID 02/16/17 02/16/17 Cyclobenzaprine [Flexeril] 10 mg PO DAILY PM 02/16/17 02/16/17 Famotidine 20 mg PO DAILY 02/16/17 02/16/17 Fenofibrate 160 mg PO DAILY 02/16/17 02/16/17 Fluticasone [Flonase] 2 spray ROSSY DAILY 02/16/17 03/11/18 Montelukast [Singulair] 10 mg PO DAILY 02/16/17 03/11/18 Pramipexole [Mirapex] 0.25 mg PO DAILY PM 02/16/17 03/11/18 Pravastatin [Pravachol] 20 mg PO DAILY PM 02/16/17 03/11/18 Propranolol ER [Inderal LA] 80 mg PO BID 02/16/17 03/11/18 QUEtiapine [SEROquel] 200 mg PO DAILY PM 02/16/17 03/11/18 traZODone [Desyrel] 50 mg PO DAILY PM PRN 02/16/17 03/11/18 Finasteride 2.5 mg PO 12/01/17 buPROPion [Wellbutrin Sr] 175 mg PO DAILY 12/01/17 12/01/17 diazePAM [Diazepam] 5 mg ORAL BID 12/01/17 03/11/18 Ramelteon [Rozerem] 1 tab ORAL DAILY 03/11/18 03/11/18 Cyclobenzaprine [Flexeril] 10 mg PO TID PRN #20 tablet 09/08/18 Oxycodone HCl/Acetaminophen 1 - 2 each PO Q6H PRN #14 tablet 09/08/18 [Percocet 5-325 mg Tablet] raNITIdine HCl [Ranitidine HCl] 150 mg PO BID #30 tablet 10/05/18 - Allergies Allergies/Adverse Reactions: Allergies Allergy/AdvReac Type Severity Reaction Status Date / Time hydrocodone [From Vicodin] AdvReac Emesis Verified 09/08/18 15:44 - Social History Does the pt smoke?: No Smoking Status: Never smoker Does the pt drink ETOH?: No Does the pt have substance abuse?: No - Immunizations Immunizations are current?: Yes - POLST Patient has POLST: No PD ED PE NORMAL - Vitals Vital signs reviewed: Yes (Borderline systolic hypertension initially.) - General General: Alert and oriented X 3, Well developed/nourished - HEENT HEENT: Atraumatic, Pharynx benign - Neck Neck: No adenopathy, No JVD - Cardiac Cardiac: RRR, No murmur - Respiratory Respiratory: No respiratory distress, Clear bilaterally, Other (No chest wall tenderness to palpation.) - Abdomen Abdomen: Soft, Non tender, Other (Rotund abdomen.) - Back Back: No CVA TTP - Derm Derm: No rash - Extremities Extremities: No edema, No calf tenderness / cord - Neuro Neuro: Alert and oriented X 3, No motor deficit, Normal speech Results - Vitals Vitals: Oxygen O2 Source Room air - EKG (time done) 15:20 Rate: Rate (enter#) (81) Rhythm: NSR Intervals: RBBB QRS: Normal Ischemia: No: ST elevation c/w ischemia Compare to prior EKG: Unchanged from prior EKG Computer interpretation: Agree with computer - Labs Labs: Laboratory Tests 10/05/18 10/05/18 10/05/18 15:46 15:46 15:46 WBC 6.0 RBC 4.45 L Hgb 13.3 L Hct 39.9 L MCV 89.7 MCH 29.9 MCHC 33.3 RDW 13.2 Plt Count 200 MPV 10.3 Neut # (Auto) 3.8 Lymph # (Auto) 1.4 L [place] # (Auto) 0.6 Eos # (Auto) 0.2 Baso # (Auto) 0.0 Absolute Nucleated RBC 0.00 Nucleated RBC % 0.0 Sodium 139 Potassium 3.6 Chloride 102 Carbon Dioxide 25 Anion Gap 12.0 BUN 19 Creatinine 1.4 H Estimated GFR (MDRD) 53 L Glucose 130 H Calcium 9.3 Total Bilirubin 0.9 AST 32 ALT 29 Alkaline Phosphatase 47 Troponin I < 0.04 Total Protein 7.5 Albumin 4.2 Globulin 3.3 Albumin/Globulin Ratio 1.3 Lipase 37 - Rads (name of study) 1-view CXR Radiology: Prelim report reviewed, EMP read contemporaneously, See rad report (Limited radiograph low lung volumes and no definite acute cardiopulmonary abnormality detected. Recommendation: If there is concern for left pleural effusion consider formal PA and lateral radiographs.) PD MEDICAL DECISION MAKING - ED course Complexity details: reviewed old records, reviewed results, re-evaluated patient, considered differential, d/w patient ED course: The patient's presentation is most consistent with gastroesophageal reflux. Cardiac ischemia was considered, but is less likely. His EKG shows a right bundle-branch block which is unchanged from his previous EKG. Troponin level is normal. Chest x-ray reveals no evidence of pneumonia or pneumothorax. I doubt pulmonary embolus. Treatment in the emergency department included administration of 4 baby aspirin and sublingual nitroglycerin. There was no change in his symptoms. GI cocktail was administered and he had complete resolution. He is being discharged with prescription for ranitidine. I discussed with him and his female derrick car operator the results of his workup and likely diagnosis, outpatient treatment and follow-up, as well as potentially worrisome signs or symptoms that should prompt reevaluation in the emergency department. Departure - Departure Disposition: Home, Self Care Clinical Impression: RBBB (right bundle branch block), Atypical chest pain Gastroesophageal reflux disease Qualifiers: Esophagitis presence: esophagitis presence not specified Qualified Code(s): K21.9 - Gastro-esophageal reflux disease without esophagitis Condition: Stable Health Concerns: chest pain Plan of Treatment: antacid therapy Care Goals: resolution of chest pain Assessment: see above Instructions: ED GERD Follow-Up: Jeff Lazaro MD [Provider Admit Priv/Credential] - Prescriptions: raNITIdine HCl [Ranitidine HCl] 150 mg PO BID #30 tablet Comments: Minimize coffee, vilma, alcohol. Take ranitidine twice daily as prescribed. If you do not develop recurrent symptoms try drinking liquid antacid, such as Maalox or Mylanta. Follow-up with your primary physician within 1 to 2 weeks. Call to schedule an appointment. Return to the emergency department if you develop increasing chest pain, shortness of breath, abdominal pain, or otherwise worsening symptoms. Discharge Date/Time: 10/05/18 17:27
[2018-10-05 15:53] LABS: BASOPHILS % (AUTO) 0.2 %; EOSINOPHILS # (AUTO) 0.2 10^3/uL (0.0-0.7); EOSINOPHILS % (AUTO) 2.8 %; HGB - HEMOGLOBIN 13.3 g/dL (14.0-18.0); LYMPHOCYTES # (AUTO) 1.4 10^3/uL (1.5-3.5); LYMPHOCYTES % (AUTO) 23.9 %; MEAN CORPUSCULAR HEMOGLOBIN 29.9 pg (27.0-31.0); MEAN CORPUSCULAR HGB CONC 33.3 g/dL (32.0-36.0); MEAN CORPUSCULAR VOLUME 89.7 fL (80.0-94.0); MEAN PLATELET VOLUME 10.3 fL (7.4-11.4); MONOCYTES # (AUTO) 0.6 10^3/uL (0.0-1.0); MONOCYTES % (AUTO) 9.3 %; NEUTROPHILS # (AUTO) 3.8 10^3/uL (1.5-6.6); NEUTROPHILS % (AUTO) 63.5 %; PLT - PLATELET COUNT 200 10^3/uL (130-450); RED BLOOD COUNT 4.45 10^6/uL (4.70-6.10); RED CELL DISTRIBUTION WIDTH 13.2 % (12.0-15.0)
[2018-10-05] MEDS ORDERED: MAG HYDROX/AL HYDROX/SIMETH 30 ML UDC PO STA (15:56)
[2018-10-05] MEDS ORDERED: LIDOCAINE VISCOUS 2% 15 ML UDC MM STA (15:56)
--- NOTE | 2018-10-05 16:01 | XRAY Report ---
Reason: chest pain Procedure Date: 10/05/2018 Accession Number: [id number] / [id number] Procedure: XR - Chest 1 View X-Ray CPT Code: 55402 FULL RESULT: EXAM: CHEST RADIOGRAPHY EXAM DATE: 10/05/2018 03:40 PM. CLINICAL HISTORY: Chest pain. COMPARISON: 04/17/2017 2:25 PM. TECHNIQUE: 1 view. FINDINGS: Lung volumes are low and the radiograph is underpenetrated. Additionally, there is motion artifact. Lungs/Pleura: Lung volumes are low with decreased compared to the previous radiograph. No definite lobar consolidation is seen. Mildly increased density at the left costophrenic angle is felt to be a result of low lung volumes and apical lordotic technique with a small left pleural effusion difficult to exclude. There is otherwise no sizable pleural effusion or pneumothorax. Mediastinum: Stable mild borderline cardiomegaly. Other: None. IMPRESSION: Limited radiograph low lung volumes and no definite acute cardiopulmonary abnormality detected. Recommendation: If there is concern for left pleural effusion consider formal PA and lateral radiographs. RADIA
[2018-10-05 16:11] LABS: ALBUMIN 4.2 g/dL (3.2-5.5); ALBUMIN/GLOBULIN RATIO 1.3 (1.0-2.2); BILIRUBIN,TOTAL 0.9 mg/dL (0.2-1.0); CALCIUM 9.3 mg/dL (8.5-10.3); CREATININE 1.4 mg/dL (0.6-1.2); TOTAL PROTEIN 7.5 g/dL (6.7-8.2)
[2018-10-05 17:27] VITALS: BP 118/66
== END 2018-10-05 17:27 | disposition home or self-care (01) ==
LOC: ED 15:15
DX: K21.9 Gastro-esophageal reflux disease without esophagitis (principal); R07.89 Other chest pain; I45.10 Unspecified right bundle-branch block; I10 Essential (primary) hypertension; J44.9 Chronic obstructive pulmonary disease, unspecified
CPT/HCPCS: 36415; 71045; 80053; 83690; 84484; 85025; 93005; 99283; 99284; A9270

== ENCOUNTER 2018-10-16 10:53 | Outpatient (CLI) | payer MEDICARE, MEDICAID ==
[2018-10-16 18:47] LABS: BASOPHILS % (AUTO) 0.2 %; EOSINOPHILS # (AUTO) 0.1 10^3/uL (0.0-0.7); EOSINOPHILS % (AUTO) 1.6 %; HGB - HEMOGLOBIN 13.5 g/dL (14.0-18.0); LYMPHOCYTES # (AUTO) 1.4 10^3/uL (1.5-3.5); LYMPHOCYTES % (AUTO) 22.2 %; MEAN CORPUSCULAR HEMOGLOBIN 29.7 pg (27.0-31.0); MEAN CORPUSCULAR HGB CONC 32.1 g/dL (32.0-36.0); MEAN CORPUSCULAR VOLUME 92.3 fL (80.0-94.0); MEAN PLATELET VOLUME 10.7 fL (7.4-11.4); MONOCYTES # (AUTO) 0.5 10^3/uL (0.0-1.0); MONOCYTES % (AUTO) 8.3 %; NEUTROPHILS # (AUTO) 4.2 10^3/uL (1.5-6.6); NEUTROPHILS % (AUTO) 67.4 %; PLT - PLATELET COUNT 191 10^3/uL (130-450); RED BLOOD COUNT 4.55 10^6/uL (4.70-6.10); RED CELL DISTRIBUTION WIDTH 13.8 % (12.0-15.0); WHITE BLOOD COUNT 6.3 x10^3/uL (4.8-10.8)
[2018-10-16 19:12] LABS: ALBUMIN 4.2 g/dL (3.2-5.5); ALBUMIN/GLOBULIN RATIO 1.2 (1.0-2.2); ALKALINE PHOSPHATASE 46 IU/L (42-121); ALT ALANINE AMINOTRANSFERASE 30 IU/L (10-60); AST ASPARTATE AMINOTRANSFERASE 31 IU/L (10-42); BILIRUBIN,TOTAL 0.8 mg/dL (0.2-1.0); BUN - BLOOD UREA NITROGEN 20 mg/dL (6-20); CALCIUM 9.3 mg/dL (8.5-10.3); CARBON DIOXIDE - CO2 26 mmol/L (21-32); CHLORIDE 100 mmol/L (101-111); CHOLESTEROL 205 mg/dL; CREATININE 1.1 mg/dL (0.6-1.2); GFR - MDRD 70 (>89); GLUCOSE 100 mg/dL (70-100); HDL CHOLESTEROL 41 mg/dL; LDL CHOLESTEROL,CALCULATED 137 mg/dL; LDL/HDL RATIO 3.3 (<3.6); SODIUM 136 mmol/L (135-145); TOTAL PROTEIN 7.8 g/dL (6.7-8.2); VLDL CHOLESTEROL 27 mg/dL
== END 2018-10-16 10:54 | disposition home or self-care (01) ==
LOC: LAB.WCP 10:53
PROVIDERS: ATTEND Physician Assistant Medical
DX: E78.5 Hyperlipidemia, unspecified (principal); Z12.5 Encounter for screening for malignant neoplasm of prostate; M46.96 Unspecified inflammatory spondylopathy, lumbar region
CPT/HCPCS: 36415; 80053; 80061; 85025; G0103; 83721; 84153

== ENCOUNTER 2018-12-23 16:10 | Emergency (ER) | payer MEDICARE, MEDICAID ==
[2018-12-23 16:20] VITALS: BP 124/65
--- NOTE | 2018-12-23 16:37 | ED Physician Documentation ---
History of Present Illness - Stated complaint Stated Complaint: LT LEG PX/SWELLING - Chief complaint Chief Complaint: Wound - History obtained from History obtained from: Patient - History of Present Illness Pain level max: 3 Pain level now: 2 - Additonal information Additional information: 53-year-old male presents to the emergency department stating that his left leg is been painful for the past several weeks, seems worse today. He states that his service dog began to scratch at his leg and would not leave him alone, so he decided to come be checked in the emergency department. When he arrived here the dog laid down. Patient states that he has peripheral edema in the bilateral lower extremities. Also had both big toenails removed approximately 3 to 4 weeks ago. No redness. Nothing makes it better or worse Review of Systems Constitutional: denies: Fever, Chills GI: denies: Vomiting, Diarrhea Skin: denies: Rash Musculoskeletal: denies: Neck pain, Back pain Neurologic: denies: Headache, Head injury PD PAST MEDICAL HISTORY - Past Medical History Cardiovascular: Hypertension, High cholesterol, Atrial fibrillation Respiratory: COPD Neuro: None Endocrine/Autoimmune: None GI: GERD : None HEENT: None Psych: Depression, Anxiety, Bipolar disorder Musculoskeletal: Osteoarthritis, Fibromyalgia, Chronic back pain Derm: None - Past Surgical History Past Surgical History: Yes Ortho: Arthroscopic surgery, Spine surgery, Other - Present Medications Home Medications: Ambulatory Orders Medication Instructions Recorded Confirmed Albuterol Sulf [Ventolin Hfa 3 puffs PO DAILY 02/16/17 02/16/17 Inhaler] Buspirone HCl 1 tab PO TID 02/16/17 02/16/17 Cyclobenzaprine [Flexeril] 10 mg PO DAILY PM 02/16/17 02/16/17 Fenofibrate 160 mg PO DAILY 02/16/17 02/16/17 Fluticasone [Flonase] 2 spray ROSSY DAILY 02/16/17 03/11/18 Montelukast [Singulair] 10 mg PO DAILY 02/16/17 03/11/18 Pramipexole [Mirapex] 0.25 mg PO DAILY PM 02/16/17 03/11/18 Pravastatin [Pravachol] 20 mg PO DAILY PM 02/16/17 03/11/18 Propranolol ER [Inderal LA] 80 mg PO BID 02/16/17 03/11/18 QUEtiapine [SEROquel] 200 mg PO DAILY PM 02/16/17 03/11/18 Finasteride 2.5 mg PO 12/01/17 diazePAM [Diazepam] 5 mg ORAL BID 12/01/17 03/11/18 Ramelteon [Rozerem] 1 tab ORAL DAILY 03/11/18 03/11/18 Cyclobenzaprine [Flexeril] 10 mg PO TID PRN #20 tablet 09/08/18 Aspirin Chewable [[employer] [place] 81 mg PO DAILY 12/23/18 12/23/18 Aspirin] Furosemide 40 mg ORAL DAILY 12/23/18 12/23/18 Lamotrigine [Lamictal (Blue)] 25 mg PO BID 12/23/18 12/23/18 Pregabalin 100 mg PO QID 12/23/18 12/23/18 - Allergies Allergies/Adverse Reactions: Allergies Allergy/AdvReac Type Severity Reaction Status Date / Time hydrocodone [From Vicodin] AdvReac Emesis Verified 12/23/18 16:20 - Social History Does the pt smoke?: No Smoking Status: Never smoker Does the pt drink ETOH?: No Does the pt have substance abuse?: No - Immunizations Immunizations are current?: Yes - POLST Patient has POLST: No PD ED PE NORMAL - Vitals Vital signs reviewed: Yes - General General: Alert and oriented X 3, No acute distress - HEENT HEENT: Moist mucous membranes - Neck Neck: Supple, no meningeal sign - Cardiac Cardiac: RRR - Respiratory Respiratory: No respiratory distress, Clear bilaterally - Derm Derm: Warm and dry - Extremities Extremities: Other (Tender to palpation along the posterior aspect of the left calf. Mild swelling. Neurovascularly intact. No signs of infection. Full range of motion of the hip and knee. Also full range of motion of the ankle and foot.) - Neuro Neuro: Alert and oriented X 3 - Psych Psych: Normal mood, Normal affect Results - Vitals Vitals: Vital Signs - 24 hr 12/23/18 16:18 Temperature 36.8 C Heart Rate 78 Respiratory 18 Rate Blood Pressure 124/65 O2 Saturation 97 Oxygen O2 Source Room air - Rads (name of study) LLE duplex US Radiology: Prelim report reviewed, EMP read contemporaneously, See rad report (no DVT) PD MEDICAL DECISION MAKING - ED course Complexity details: reviewed results, re-evaluated patient, considered differential, d/w patient, d/w family ED course: Patient with left lower extremity pain of unclear etiology. Normal ultrasound. No signs of infection. We will follow-up with PCP for further care. Patient counseled regarding signs and symptoms for which I believe and urgent re- evaluation would be necessary. Patient with good understanding of and agreement to plan and is comfortable going home at this time This document was made in part using voice recognition software. While efforts are made to proofread this document, sound alike and grammatical errors may occur. Departure - Departure Disposition: 01 Home, Self Care Clinical Impression: Leg pain Qualifiers: Laterality: left Qualified Code(s): M79.605 - Pain in left leg Condition: Good Instructions: ED Acute Pain [facility] Follow-Up: Jeff Lazaro MD [Primary Care Provider] - Within 1 week Comments: Your ultrasound does not show any evidence of DVT today. The cause of your symptoms is unclear. Follow-up with your doctor for further care. Return if you worsen.
[2018-12-23] MEDS ORDERED: MELOXICAM 7.5 MG TABLET PO STA (17:10)
--- NOTE | 2018-12-23 19:34 | Ultrasound Report ---
Reason: LLE swelling, pain Procedure Date: 12/23/2018 Accession Number: [id number] / [id number] Procedure: US - Duplex Ext Veins Left CPT Code: FULL RESULT: EXAM: LEFT LOWER EXTREMITY VENOUS ULTRASOUND EXAM DATE: 12/23/2018 07:10 PM. CLINICAL HISTORY: LLE swelling, pain. COMPARISON: DUPLEX EXT VEINS LEFT 09/08/2018 4:47 PM. TECHNIQUE: Real-time sonographic vascular imaging was performed by the dsp engineer through the lower extremity utilizing both color-flow and Doppler spectral analysis. Multiple sales representative health insurance static images were saved for review. FINDINGS: Common Femoral Vein (CFV): Normal. CFV-GSV Junction: Normal. Profunda Femoral Vein (PFV): Normal. Femoral Vein (FV) Prox: Normal. Femoral Vein (FV) Mid: Normal. Femoral Vein (FV) Dist: Normal. Popliteal Vein: Normal. Posterior Tibial Veins: Normal. Peroneal Veins: Normal. Other: None. IMPRESSION: No evidence for deep venous thrombosis. [facility]
== END 2018-12-23 18:17 | disposition home or self-care (01) ==
LOC: ED 16:10
DX: M79.605 Pain in left leg (principal); I10 Essential (primary) hypertension
CPT/HCPCS: 93971; 99284; A9270

== ENCOUNTER 2019-01-26 09:09 | Outpatient (CLI) | payer MEDICARE, MEDICAID ==
[2019-01-26] MEDS: ALBUTEROL NEB 2.5 MG/3 ML INH SCH (09:30)
== END 2019-01-26 09:10 | disposition home or self-care (01) ==
LOC: RT 09:09
PROVIDERS: ATTEND Family Medicine
DX: J45.998 Other asthma (principal)
CPT/HCPCS: 94060

== ENCOUNTER 2019-04-25 08:00 | Outpatient (CLI) | payer MEDICARE, MEDICAID ==
[2019-04-25 18:29] LABS: BILIRUBIN,URINE NEGATIVE (NEGATIVE); GLUCOSE, URINE (UA) NEGATIVE (NEGATIVE); KETONES,URINE (UA) NEGATIVE (NEGATIVE); LEUKOCYTE ESTERASE, URINE NEGATIVE (NEGATIVE); NITRITE,URINE NEGATIVE (NEGATIVE); OCCULT BLOOD,URINE NEGATIVE (NEGATIVE); PH,URINE 5.5 PH (5.0-7.5); PROTEIN,URINE NEGATIVE (NEGATIVE); UROBILINOGEN,URINE 0.2 (NORMAL) E.U./dL (NORMAL)
[2019-04-25 18:37] LABS: BASOPHILS % (AUTO) 0.4 %; EOSINOPHILS # (AUTO) 0.2 10^3/uL (0.0-0.7); EOSINOPHILS % (AUTO) 3.3 %; HGB - HEMOGLOBIN 14.2 g/dL (14.0-18.0); LYMPHOCYTES # (AUTO) 1.6 10^3/uL (1.5-3.5); LYMPHOCYTES % (AUTO) 24.1 %; MEAN CORPUSCULAR HEMOGLOBIN 29.9 pg (27.0-31.0); MEAN CORPUSCULAR HGB CONC 33.1 g/dL (32.0-36.0); MEAN CORPUSCULAR VOLUME 90.3 fL (80.0-94.0); MEAN PLATELET VOLUME 10.5 fL (7.4-11.4); MONOCYTES # (AUTO) 0.6 10^3/uL (0.0-1.0); MONOCYTES % (AUTO) 8.2 %; NEUTROPHILS # (AUTO) 4.3 10^3/uL (1.5-6.6); NEUTROPHILS % (AUTO) 63.7 %; PLT - PLATELET COUNT 240 10^3/uL (130-450); RED BLOOD COUNT 4.75 10^6/uL (4.70-6.10); RED CELL DISTRIBUTION WIDTH 13.3 % (12.0-15.0); WHITE BLOOD COUNT 6.7 x10^3/uL (4.8-10.8)
[2019-04-25 18:42] LABS: BACTERIA,URINE None Seen /HPF (None Seen); CLARITY,URINE CLEAR (CLEAR); RBC,URINE None Seen /HPF (0-5); SQUAMOUS EPITHELIAL CELL,UR MOD Squamous (<= Few)
[2019-04-25 18:49] LABS: PT - PROTHROMBIN TIME 11.6 secs (9.9-12.6)
[2019-04-25 19:00] LABS: ALBUMIN 4.5 g/dL (3.2-5.5); ALBUMIN/GLOBULIN RATIO 1.4 (1.0-2.2); BILIRUBIN,TOTAL 0.7 mg/dL (0.2-1.0); CALCIUM 9.8 mg/dL (8.5-10.3); CREATININE 1.4 mg/dL (0.6-1.2); TOTAL PROTEIN 7.7 g/dL (6.7-8.2)
== END 2019-04-25 23:59 | disposition home or self-care (01) ==
LOC: LAB.WCP 08:00
PROVIDERS: ATTEND Family Medicine
DX: M17.0 Bilateral primary osteoarthritis of knee (principal); M79.7 Fibromyalgia; E78.5 Hyperlipidemia, unspecified
CPT/HCPCS: 36415; 80053; 81001; 83540; 85025; 85610; 87086

== ENCOUNTER 2019-05-29 11:44 | Emergency (ER) | payer MEDICARE, MEDICAID ==
[2019-05-29] MEDS ORDERED: SODIUM CHLORIDE 0.9% 1,000 ML IV ONE (13:06)
--- NOTE | 2019-05-29 13:09 | ED Physician Documentation ---
History of Present Illness - Stated complaint Stated Complaint: CONSTIPATED/BLOOD IN STOOL - History obtained from History obtained from: Patient, Friend - History of Present Illness Timing: Today (53-year-old gentleman with PTSD and bipolar disorder on multiple psychiatric medications although none of them are new. About 2-1/2 weeks ago he had a left total knee replacement. No perioperative anticoagulation. He describes for the last few days he has been constipated and straining in his stools. Then today he had a large incontinent bowel movement with blood in it. He also notes that for the last few weeks, probably predating the surgery, he is been confused. Trouble finding words. Tremulous. He does admit to shortness of breath and now for the last week he has had left-sided pedal edema.) Review of Systems Ten Systems: 10 systems reviewed and negative Constitutional: reports: Fatigue. denies: Fever, Chills Nose: denies: Rhinorrhea / runny nose, Congestion Throat: denies: Sore throat Cardiac: denies: Chest pain / pressure, Palpitations Respiratory: denies: Dyspnea, Cough PD PAST MEDICAL HISTORY - Past Medical History Cardiovascular: Hypertension, High cholesterol, Atrial fibrillation Respiratory: COPD Neuro: None Endocrine/Autoimmune: None GI: GERD : None HEENT: None Psych: Depression, Anxiety, Bipolar disorder Musculoskeletal: Osteoarthritis, Fibromyalgia, Chronic back pain Derm: None - Past Surgical History Past Surgical History: Yes Ortho: Arthroscopic surgery, Spine surgery, Other - Present Medications Home Medications: Ambulatory Orders Medication Instructions Recorded Confirmed Albuterol Sulf [Ventolin Hfa 3 puffs PO DAILY 02/16/17 02/16/17 Inhaler] Buspirone HCl 1 tab PO TID 02/16/17 02/16/17 Fenofibrate 160 mg PO DAILY 02/16/17 02/16/17 Fluticasone [Flonase] 2 spray ROSSY DAILY 02/16/17 03/11/18 Montelukast [Singulair] 10 mg PO DAILY 02/16/17 03/11/18 Pramipexole [Mirapex] 0.25 mg PO DAILY PM 02/16/17 03/11/18 Pravastatin [Pravachol] 20 mg PO DAILY PM 02/16/17 03/11/18 Propranolol ER [Inderal LA] 80 mg PO BID 02/16/17 03/11/18 QUEtiapine [SEROquel] 200 mg PO DAILY PM 02/16/17 03/11/18 Finasteride 2.5 mg PO 12/01/17 Ramelteon [Rozerem] 1 tab ORAL DAILY 03/11/18 03/11/18 Cyclobenzaprine [Flexeril] 10 mg PO TID PRN #20 tablet 09/08/18 Furosemide 40 mg ORAL DAILY 12/23/18 12/23/18 Lamotrigine [Lamictal (Blue)] 25 mg PO BID 12/23/18 12/23/18 Pregabalin 100 mg PO QID 12/23/18 12/23/18 - Allergies Allergies/Adverse Reactions: Allergies Allergy/AdvReac Type Severity Reaction Status Date / Time hydrocodone [From Vicodin] AdvReac Emesis Verified 05/29/19 11:56 - Social History Does the pt smoke?: No Smoking Status: Former smoker Does the pt drink ETOH?: No Does the pt have substance abuse?: No - Immunizations Immunizations are current?: Yes - POLST Patient has POLST: No PD ED PE NORMAL - Vitals Vital signs reviewed: Yes - General General: Alert and oriented X 3, No acute distress - HEENT HEENT: PERRL, EOMI, Ears normal, Pharynx benign - Neck Neck: Supple, no meningeal sign, No bony TTP - Cardiac Cardiac: RRR, No murmur - Respiratory Respiratory: No respiratory distress, Clear bilaterally - Abdomen Abdomen: Non tender - Rectal Rectal: Other (No fecal impaction, no gross blood) - Back Back: No CVA TTP, No spinal TTP - Extremities Extremities: Other (Knee looks fine, there is some edema distal to the knee replacement on the left. Nontender. No evidence of infection. Range of motion seems appropriate for this juncture.) - Neuro Neuro: Alert and oriented X 3 (But slightly slow to answer questions), No motor deficit, No sensory deficit, Normal speech, Other (Minimally tremulous versus asterixis.) Eye Opening: Spontaneous Motor: Obeys Commands Verbal: Oriented GCS Score: 15 - Psych Psych: Normal mood, Normal affect Results - Vitals Vitals: Vital Signs - 24 hr 05/29/19 05/29/19 11:48 14:56 Temperature 36.1 C L 36.9 C Heart Rate 77 83 Respiratory 18 16 Rate Blood Pressure 121/55 L 131/72 H O2 Saturation 97 100 Oxygen O2 Source Room air - Labs Labs: Laboratory Tests 05/29/19 05/29/19 05/29/19 13:20 13:20 13:20 WBC 6.8 RBC 4.10 L Hgb 12.0 L Hct 37.2 L MCV 90.7 MCH 29.3 MCHC 32.3 RDW 13.7 Plt Count 285 MPV 9.5 Neut # (Auto) 5.3 Lymph # (Auto) 0.8 L Lamar # (Auto) 0.5 Eos # (Auto) 0.1 Baso # (Auto) 0.0 Absolute Nucleated RBC 0.00 Nucleated RBC % 0.0 Sodium 136 Potassium 3.6 Chloride 97 L Carbon Dioxide 26 Anion Gap 13.0 BUN 15 Creatinine 1.4 H Estimated GFR (MDRD) 53 L Glucose 110 H Calcium 9.6 Total Bilirubin 0.7 AST 40 ALT 30 Alkaline Phosphatase 71 Ammonia 21.6 Total Protein 8.1 Albumin 4.6 Globulin 3.5 Albumin/Globulin Ratio 1.3 Lipase 41 Urine Opiates Screen Ur Oxycodone Screen Urine Methadone Screen Ur Propoxyphene Screen Ur Barbiturates Screen Ur Tricyclics Screen Ur Phencyclidine Scrn Ur Amphetamine Screen U Methamphetamines Scrn U Benzodiazepines Scrn Urine Cocaine Screen U Cannabinoids Screen Ethyl Alcohol < 5.0 05/29/19 14:18 WBC RBC Hgb Hct MCV MCH MCHC RDW Plt Count MPV Neut # (Auto) Lymph # (Auto) Lamar # (Auto) Eos # (Auto) Baso # (Auto) Absolute Nucleated RBC Nucleated RBC % Sodium Potassium Chloride Carbon Dioxide Anion Gap BUN Creatinine Estimated GFR (MDRD) Glucose Calcium Total Bilirubin AST ALT Alkaline Phosphatase Ammonia Total Protein Albumin Globulin Albumin/Globulin Ratio Lipase Urine Opiates Screen NEGATIVE Ur Oxycodone Screen NEGATIVE Urine Methadone Screen NEGATIVE Ur Propoxyphene Screen NEGATIVE Ur Barbiturates Screen NEGATIVE Ur Tricyclics Screen POSITIVE H Ur Phencyclidine Scrn NEGATIVE Ur Amphetamine Screen NEGATIVE U Methamphetamines Scrn NEGATIVE U Benzodiazepines Scrn POSITIVE H Urine Cocaine Screen NEGATIVE U Cannabinoids Screen NEGATIVE Ethyl Alcohol Procedures - General procedure General procedure: He was difficult for IV access, the nurse had placed an IV in the hand that we needed something a little bigger for the CT angiography of the chest. I personally placed a 20-gauge IV in the left antecubital fossa after ChloraPrep using real-time ultrasound guidance that flushed and reinaldo well. PD MEDICAL DECISION MAKING - ED course ED course: 53-year-old gentleman with mild episodes of confusion, then he was constipated from pain medication perioperatively around the knee replacements. It sounds like he spontaneously disimpacted yesterday and has had some hematochezia. As far as the bowel movements ago, it sounds like he is already fixed that problem. Going back to a more normal diet was encouraged. His H&H is fine. As far as the confusion goes, it seems like this is likely due to polypharmacy. May be from some dehydration 2. He felt clearer after IV fluids. Overall his chronic medications were not changed, I recommended talking to his regular prescriber about this. He was short of breath with a swollen left leg, the but there was no evidence of PE or DVT on an angiogram of the chest and order an ultrasound of the leg. Departure - Departure Disposition: 01 Home, Self Care Clinical Impression: Confusion Dyspnea Qualifiers: Dyspnea type: dyspnea on exertion Qualified Code(s): R06.09 - Other forms of dyspnea Leg pain Qualifiers: Laterality: left Qualified Code(s): M79.605 - Pain in left leg Condition: Good Record reviewed to determine appropriate education?: Yes Instructions: ED Dyspnea Shortness of Breath Comments: Talk with your prescriber about your regular medications, return for new or worsening symptoms. Drink plenty of fluids. Continue to not take pain medication, as discussed I would recommend going back to a fairly normal diet.
[2019-05-29] MEDS ORDERED: IOVERSOL 320 100 ML VIAL IVP ONE ×2 (13:28→15:07)
[2019-05-29 13:39] LABS: BASOPHILS % (AUTO) 0.3 %; EOSINOPHILS # (AUTO) 0.1 10^3/uL (0.0-0.7); EOSINOPHILS % (AUTO) 1.8 %; LYMPHOCYTES # (AUTO) 0.8 10^3/uL (1.5-3.5); LYMPHOCYTES % (AUTO) 12.3 %; MEAN CORPUSCULAR HEMOGLOBIN 29.3 pg (27.0-31.0); MEAN CORPUSCULAR HGB CONC 32.3 g/dL (32.0-36.0); MEAN CORPUSCULAR VOLUME 90.7 fL (80.0-94.0); MEAN PLATELET VOLUME 9.5 fL (7.4-11.4); MONOCYTES # (AUTO) 0.5 10^3/uL (0.0-1.0); MONOCYTES % (AUTO) 7.4 %; NEUTROPHILS # (AUTO) 5.3 10^3/uL (1.5-6.6); NEUTROPHILS % (AUTO) 77.8 %; PLT - PLATELET COUNT 285 10^3/uL (130-450); RED CELL DISTRIBUTION WIDTH 13.7 % (12.0-15.0); WHITE BLOOD COUNT 6.8 x10^3/uL (4.8-10.8)
[2019-05-29 13:46] LABS: ALBUMIN 4.6 g/dL (3.2-5.5); ALBUMIN/GLOBULIN RATIO 1.3 (1.0-2.2); ALKALINE PHOSPHATASE 71 IU/L (42-121); ALT ALANINE AMINOTRANSFERASE 30 IU/L (10-60); AST ASPARTATE AMINOTRANSFERASE 40 IU/L (10-42); BILIRUBIN,TOTAL 0.7 mg/dL (0.2-1.0); BUN - BLOOD UREA NITROGEN 15 mg/dL (6-20); CALCIUM 9.6 mg/dL (8.5-10.3); CARBON DIOXIDE - CO2 26 mmol/L (21-32); CHLORIDE 97 mmol/L (101-111); CREATININE 1.4 mg/dL (0.6-1.2); GFR - MDRD 53 (>89); GLUCOSE 110 mg/dL (70-100); LIPASE 41 U/L (22-51); SODIUM 136 mmol/L (135-145); TOTAL PROTEIN 8.1 g/dL (6.7-8.2)
[2019-05-29 14:21] LABS: MUDS CUTOFF CONCENTRATIONS CUTOFF CONC BELOW:
[2019-05-29 14:38] LABS: AMPHETAMINE SCREEN,URINE NEGATIVE (NEGATIVE); BENZODIAZEPINES SCREEN, URINE POSITIVE (NEGATIVE); COCAINE SCREEN URINE NEGATIVE (NEGATIVE); METHADONE SCREEN, URINE NEGATIVE (NEGATIVE); METHAMPHETAMINES SCREEN, URINE NEGATIVE (NEGATIVE); OPIATE SCREEN, URINE NEGATIVE (NEGATIVE); OXYCODONE SCREEN, URINE NEGATIVE (NEGATIVE); PROPOXYPHENE SCREEN, URINE NEGATIVE (NEGATIVE); TRICYCLIC ANTIDEPRESSANT,URINE POSITIVE (NEGATIVE)
--- NOTE | 2019-05-29 15:10 | CT Report ---
Reason: altered Procedure Date: 05/29/2019 Accession Number: [id number] / [id number] Procedure: CT - HEAD WO CPT Code: Final Report FULL RESULT: EXAM: CT HEAD EXAM DATE: 05/29/2019 02:54 PM. CLINICAL HISTORY: Confusion after surgery COMPARISON: None. TECHNIQUE: Multiaxial CT images were obtained from the foramen magnum to the vertex. Reformats: Sagittal and coronal. IV contrast: None. In accordance with CT protocol optimization, one or more of the following dose reduction techniques were utilized for this exam: automated exposure control, adjustment of mA and/or KV based on patient size, or use of iterative reconstructive technique. FINDINGS: Parenchyma: No intraparenchymal hemorrhage. No evidence of mass, midline shift, or CT findings of infarction. Kamara-white differentiation is distinct. Extraaxial Spaces: Normal for age. No subdural or epidural collections identified. Ventricles: Normal in size and position. Sinuses and Orbits: There is a mucus retention cyst in the left sphenoid sinus. No sinus air-fluid level. Mastoid sinuses are clear. Bones: No evidence of fracture or calvarial defect. Other: None. IMPRESSION: Negative for an acute or focal intracranial abnormality. RADIA
--- NOTE | 2019-05-29 15:30 | CT Report ---
Reason: dyspnea post op Procedure Date: 05/29/2019 Accession Number: [id number] / [id number] Procedure: CT - ANGIO CHEST W/WO CPT Code: Final Report FULL RESULT: EXAM: CT ANGIOGRAM CHEST EXAM DATE: 05/29/2019 02:54 PM. CLINICAL HISTORY: Dyspnea postoperative. Recent knee surgery. Increased fatigue, dyspnea. COMPARISON: CHEST 2 VIEW 01/11/2019 11:42 AM. TECHNIQUE: Routine helical imaging was performed through the chest in the pulmonary arterial phase. IV Contrast: Optiray 320 56 mL. Reconstructions: Coronal 3-D MIP reconstructions. Sagittal and coronal. In accordance with CT protocol optimization, one or more of the following dose reduction techniques were utilized for this exam: automated exposure control, adjustment of mA and/or KV based on patient size, or use of iterative reconstructive technique. FINDINGS: Upper abdomen: No acute findings are seen. Mediastinum: No thoracic aortic aneurysm or dissection. Prominent heart size. No mediastinal or hilar lymphadenopathy. Motion artifact limits the exam. Small pulmonary emboli could be missed. No definite evidence for pulmonary emboli. Lungs: Motion artifact limited. Suspect a combination of atelectasis and motion artifact. Pathologic airspace disease is not excluded. No pleural effusion or pneumothorax. Bones: No acute bone findings are seen. IMPRESSION: 1. Motion artifact limits the exam. Small pulmonary emboli could be missed. No definite evidence for pulmonary emboli. 2. Motion artifact limited. Suspect a combination of atelectasis and motion artifact. Pathologic airspace disease is not excluded. No pleural effusion or pneumothorax. RADIA
--- NOTE | 2019-05-29 15:44 | Ultrasound Report ---
Reason: LLE swelling s/p TKR Procedure Date: 05/29/2019 Accession Number: [id number] / [id number] Procedure: US - Duplex Ext Veins Left CPT Code: Final Report FULL RESULT: EXAM: LEFT LOWER EXTREMITY VENOUS ULTRASOUND. EXAM DATE: 05/29/2019 03:33 PM. CLINICAL HISTORY: Left lower extremity swelling status post total knee replacement. COMPARISON: DUPLEX EXT VEINS LEFT 12/23/2018 5:48 PM. TECHNIQUE: Real-time sonographic vascular imaging was performed by the automatic blocker through the lower extremity utilizing both color-flow and Doppler spectral analysis. Multiple enrollment eligibility representative static images were saved for review. FINDINGS: Common Femoral Vein (CFV): Normal. CFV-GSV Junction: Normal. Profunda Femoral Vein (PFV): Normal. Femoral Vein (FV) Prox: Normal. Femoral Vein (FV) Mid: Normal. Femoral Vein (FV) Dist: Normal. Popliteal Vein: Normal. Posterior Tibial Veins: Limited visualization. Given the limitations, no thrombus identified. Peroneal Veins: Limited visualization. Given the limitations, no thrombus identified. Contralateral Side CFV: Normal. Other: In the lateral left knee, there is a debris containing complex fluid collection measuring 3.4 x 2.8 x 5.9 cm. This is in close proximity to the patient's scar. IMPRESSION: 1. Suboptimal visualization of posterior tibial and peroneal veins. 2. Given the limitations, no evidence for deep venous thrombosis. 3. Complex 3.4 x 2.8 x 5.9 cm collection in the lateral left knee likely represents a postoperative seroma or evolving hematoma. Abscess is felt to be less likely. RADIA
[2019-05-29] MEDS ORDERED: LACTATED RINGERS 1,000 ML IV STA (15:50)
[2019-05-29 17:58] VITALS: BP 134/70
== END 2019-05-29 18:03 | disposition home or self-care (01) ==
LOC: ED 11:44
DX: R41.0 Disorientation, unspecified (principal); R06.09 Other forms of dyspnea; M79.605 Pain in left leg; Z96.652 Presence of left artificial knee joint; K92.1 Melena; I10 Essential (primary) hypertension; J44.9 Chronic obstructive pulmonary disease, unspecified; Z87.891 Personal history of nicotine dependence; F43.10 Post-traumatic stress disorder, unspecified; F31.9 Bipolar disorder, unspecified
CPT/HCPCS: 36415; 70450; 71275; 80053; 82140; 83690; 85025; 93971; 96360; 96361; 99284; J7120; Q9967; 80306; 80320

== ENCOUNTER 2019-05-31 20:47 | Outpatient (CLI) | payer MEDICARE, MEDICAID | END 2019-05-31 20:48 | disposition critical access hospital (66) | LOC: EMS 20:47 | PROVIDERS: ATTEND Surgery | DX: M54.5 Low back pain (principal) | CPT/HCPCS: A0425; A0429 ==

== ENCOUNTER 2019-05-31 20:57 | Emergency (ER) | payer MEDICARE, MEDICAID ==
--- NOTE | 2019-05-31 21:33 | ED Physician Documentation ---
History of Present Illness - Stated complaint Stated Complaint: BACK PAIN - Chief complaint Chief Complaint: Back Pain - History obtained from History obtained from: Patient (The patient is a 53-year-old male who presents with left-sided lower back pain. The patient reports that he is concerned that he could have a possible kidney stone but denies any blood in his urine or any dysuria. He was seen here 2 days ago for multiple complaints he is postop from a left total knee replacement a Doppler ultrasound ruled out a DVT and a CTA of the chest ruled out a PE apparently the patient was confused a CT of the head was unremarkable as well patient does have a history of PTSD as well as bipolar and is on multiple medications he denies any fevers, headaches or neck pain.The patient denies any abdominal pain.He denies any bowel or bladder dysfunction or any saddle anesthesia.) Review of Systems Constitutional: reports: Reviewed and negative Eyes: reports: Reviewed and negative Ears: reports: Reviewed and negative Nose: reports: Reviewed and negative Throat: reports: Reviewed and negative Cardiac: reports: Reviewed and negative Respiratory: reports: Reviewed and negative GI: reports: Reviewed and negative : reports: Reviewed and negative Skin: reports: Reviewed and negative Musculoskeletal: reports: Back pain Neurologic: reports: Reviewed and negative Psychiatric: reports: Reviewed and negative Endocrine: reports: Reviewed and negative Immunocompromised: reports: Reviewed and negative PD PAST MEDICAL HISTORY - Past Medical History Cardiovascular: Hypertension, High cholesterol, Atrial fibrillation Respiratory: COPD Neuro: None Endocrine/Autoimmune: None GI: GERD : None HEENT: None Psych: Depression, Anxiety, Bipolar disorder Musculoskeletal: Osteoarthritis, Fibromyalgia, Chronic back pain Derm: None - Past Surgical History Past Surgical History: Yes Ortho: Arthroscopic surgery, Spine surgery, Other - Present Medications Home Medications: Ambulatory Orders Medication Instructions Recorded Confirmed Albuterol Sulf [Ventolin Hfa 3 puffs PO DAILY 02/16/17 02/16/17 Inhaler] Buspirone HCl 1 tab PO TID 02/16/17 02/16/17 Fenofibrate 160 mg PO DAILY 02/16/17 02/16/17 Fluticasone [Flonase] 2 spray ROSSY DAILY 02/16/17 03/11/18 Montelukast [Singulair] 10 mg PO DAILY 02/16/17 03/11/18 Pramipexole [Mirapex] 0.25 mg PO DAILY PM 02/16/17 03/11/18 Pravastatin [Pravachol] 20 mg PO DAILY PM 02/16/17 03/11/18 Propranolol ER [Inderal LA] 80 mg PO BID 02/16/17 03/11/18 QUEtiapine [SEROquel] 200 mg PO DAILY PM 02/16/17 03/11/18 Finasteride 2.5 mg PO 12/01/17 Ramelteon [Rozerem] 1 tab ORAL DAILY 03/11/18 03/11/18 Cyclobenzaprine [Flexeril] 10 mg PO TID PRN #20 tablet 09/08/18 Furosemide 40 mg ORAL DAILY 12/23/18 12/23/18 Lamotrigine [Lamictal (Blue)] 25 mg PO BID 12/23/18 12/23/18 Pregabalin 100 mg PO QID 12/23/18 12/23/18 - Allergies Allergies/Adverse Reactions: Allergies Allergy/AdvReac Type Severity Reaction Status Date / Time hydrocodone [From Vicodin] AdvReac Emesis Verified 05/29/19 11:56 - Social History Does the pt smoke?: No Smoking Status: Former smoker Does the pt drink ETOH?: No Does the pt have substance abuse?: No - Immunizations Immunizations are current?: Yes - POLST Patient has POLST: No PD ED PE NORMAL - Vitals Vital signs reviewed: Yes - General General: Alert and oriented X 3, No acute distress, Well developed/nourished - HEENT HEENT: Atraumatic, PERRL, Moist mucous membranes, Pharynx benign - Neck Neck: Supple, no meningeal sign, No bony TTP, No JVD - Cardiac Cardiac: RRR, Strong equal pulses - Respiratory Respiratory: No respiratory distress, Clear bilaterally - Abdomen Abdomen: Normal bowel sounds, Soft, Non tender, Non distended, Other (no midline abd pulsatile mass) - Back Back: No CVA TTP, No spinal TTP, Other (there is left paraspinal muscle spasm, no CTLS step offs or deformities or TTP.) - Derm Derm: Warm and dry - Extremities Extremities: No deformity, Other (LLE without any SOI) - Neuro Neuro: Alert and oriented X 3, 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 YELLOW Urine Clarity CLEAR Urine pH 7.5 Ur Specific [place] <=1.005 Urine Protein NEGATIVE Urine Glucose (UA) NEGATIVE Urine Ketones NEGATIVE Urine Occult Blood NEGATIVE Urine Nitrite NEGATIVE Urine Bilirubin NEGATIVE Urine Urobilinogen 0.2 (NORMAL) Ur Leukocyte Esterase NEGATIVE Ur Microscopic Review NOT INDICATED Urine Culture Comments NOT INDICATED PD MEDICAL DECISION MAKING - ED course Complexity details: other (patient had a significant workup 2 days prior. His exam and vitals are unremarkable, UA unremarkable. patient updated on results, he should f/u w his pcp in the next few days.) Departure - Departure Disposition: 01 Home, Self Care Clinical Impression: Back pain Qualifiers: Back pain location: low back pain Chronicity: unspecified Back pain laterality: left Sciatica presence: without sciatica Qualified Code(s): M54.5 - Low back pain Condition: Good Instructions: ED Low Back Pain Injury Follow-Up: Jeff Lazaro MD [Primary Care Provider] - Tomorrow
[2019-05-31 22:15] LABS: BILIRUBIN,URINE NEGATIVE (NEGATIVE); GLUCOSE, URINE (UA) NEGATIVE (NEGATIVE); KETONES,URINE (UA) NEGATIVE (NEGATIVE); LEUKOCYTE ESTERASE, URINE NEGATIVE (NEGATIVE); NITRITE,URINE NEGATIVE (NEGATIVE); OCCULT BLOOD,URINE NEGATIVE (NEGATIVE); PH,URINE 7.5 PH (5.0-7.5); PROTEIN,URINE NEGATIVE (NEGATIVE); UROBILINOGEN,URINE 0.2 (NORMAL) E.U./dL (NORMAL)
[2019-05-31 22:17] LABS: CLARITY,URINE CLEAR (CLEAR)
[2019-05-31 22:57] VITALS: BP 137/74
== END 2019-05-31 22:50 | disposition home or self-care (01) ==
LOC: EDUNIT# → ED 20:57
DX: M54.5 Low back pain (principal); I10 Essential (primary) hypertension; Z87.891 Personal history of nicotine dependence
CPT/HCPCS: 81001; 81003; 87086; 99283

== ENCOUNTER 2019-06-30 16:19 | Outpatient (CLI) | payer MEDICARE, MEDICAID | END 2019-06-30 16:20 | disposition EMS.NT | LOC: EMS 16:19 | PROVIDERS: ATTEND Surgery | DX: R10.13 Epigastric pain (principal) ==

== ENCOUNTER 2019-06-30 18:45 | Emergency (ER) | payer MEDICARE, MEDICAID ==
[2019-06-30 19:07] VITALS: BP 145/78
--- NOTE | 2019-06-30 19:27 | ED Physician Documentation ---
History of Present Illness - Stated complaint Stated Complaint: MEMORY ISSUES, LOWER BACK PX - HX OF KIDNEY FAILUR - Chief complaint Chief Complaint: Abd Pain - History obtained from History obtained from: Patient (Patient is a 53-year-old maleWho presents with vague complaints to include mild lower back pain and mild right flank pain he denies syncope denies chest pain denies any fevers or dysuria or hematuria.Patient describes his discomfort is 1 out of 10.) Review of Systems Constitutional: reports: Reviewed and negative Eyes: reports: Reviewed and negative Ears: reports: Reviewed and negative Nose: reports: Reviewed and negative Throat: reports: Reviewed and negative Cardiac: reports: Reviewed and negative Respiratory: reports: Reviewed and negative GI: reports: Other (Right flank pain) : reports: Reviewed and negative Skin: reports: Reviewed and negative Musculoskeletal: reports: Reviewed and negative Neurologic: reports: Reviewed and negative Psychiatric: reports: Reviewed and negative Endocrine: reports: Reviewed and negative Immunocompromised: reports: Reviewed and negative PD PAST MEDICAL HISTORY - Past Medical History Cardiovascular: Hypertension, High cholesterol, Atrial fibrillation Respiratory: COPD Neuro: None Endocrine/Autoimmune: None GI: GERD : None HEENT: None Psych: Depression, Anxiety, Bipolar disorder Musculoskeletal: Osteoarthritis, Fibromyalgia, Chronic back pain Derm: None - Past Surgical History Past Surgical History: Yes Ortho: Arthroscopic surgery, Spine surgery, Other - Present Medications Home Medications: Ambulatory Orders Medication Instructions Recorded Confirmed Albuterol Sulf [Ventolin Hfa 3 puffs PO DAILY 02/16/17 02/16/17 Inhaler] Buspirone HCl 1 tab PO TID 02/16/17 02/16/17 Fenofibrate 160 mg PO DAILY 02/16/17 02/16/17 Fluticasone [Flonase] 2 spray ROSSY DAILY 02/16/17 03/11/18 Montelukast [Singulair] 10 mg PO DAILY 02/16/17 03/11/18 Pramipexole [Mirapex] 0.25 mg PO DAILY PM 02/16/17 03/11/18 Pravastatin [Pravachol] 20 mg PO DAILY PM 02/16/17 03/11/18 Propranolol ER [Inderal LA] 80 mg PO BID 02/16/17 03/11/18 QUEtiapine [SEROquel] 200 mg PO DAILY PM 11/02/17 11/25/18 Finasteride 2.5 mg PO 12/01/17 Ramelteon [Rozerem] 1 tab ORAL DAILY 03/11/18 03/11/18 Cyclobenzaprine [Flexeril] 10 mg PO TID PRN #20 tablet 09/08/18 Furosemide 40 mg ORAL DAILY 12/23/18 12/23/18 Lamotrigine [Lamictal (Blue)] 25 mg PO BID 12/23/18 12/23/18 Pregabalin 100 mg PO QID 12/23/18 12/23/18 - Allergies Allergies/Adverse Reactions: Allergies Allergy/AdvReac Type Severity Reaction Status Date / Time codeine Allergy Unknown Verified 06/30/19 18:50 hydrocodone [From Vicodin] AdvReac Emesis Verified 06/30/19 18:50 - Social History Does the pt smoke?: No Smoking Status: Former smoker Does the pt drink ETOH?: No Does the pt have substance abuse?: No - Immunizations Immunizations are current?: Yes - POLST Patient has POLST: No PD ED PE NORMAL - Vitals Vital signs reviewed: Yes - General General: Alert and oriented X 3, No acute distress - HEENT HEENT: Atraumatic, PERRL, EOMI, Ears normal, Moist mucous membranes, Pharynx benign, Dentition benign - Neck Neck: Supple, no meningeal sign, No bony TTP, No JVD - Cardiac Cardiac: RRR, No murmur, Strong equal pulses - Respiratory Respiratory: No respiratory distress, Clear bilaterally - Abdomen Abdomen: Normal bowel sounds, Soft, Non tender, Non distended, No organomegaly - Back Back: No CVA TTP, No spinal TTP - Derm Derm: Normal color, Warm and dry, No rash - Extremities Extremities: No deformity, No tenderness to palpate, Normal ROM s pain, No edema, No calf tenderness / cord - Neuro Neuro: Alert and oriented X 3, 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0 Sodium 134 L Potassium 3.7 Chloride 98 L Carbon Dioxide 25 Anion Gap 11.0 BUN 17 Creatinine 1.1 Estimated GFR (MDRD) 70 L Glucose 116 H Calcium 9.6 Total Bilirubin 0.9 Direct Bilirubin 0.1 AST 38 ALT 32 Alkaline Phosphatase 55 Total Protein 7.5 Albumin 4.6 Globulin 2.9 Lipase 42 Urine Color YELLOW Urine Clarity CLEAR Urine pH 6.0 Ur Specific [place] <=1.005 Urine Protein NEGATIVE Urine Glucose (UA) NEGATIVE Urine Ketones NEGATIVE Urine Occult Blood NEGATIVE Urine Nitrite NEGATIVE Urine Bilirubin NEGATIVE Urine Urobilinogen 0.2 (NORMAL) Ur Leukocyte Esterase SMALL H Urine RBC None Seen Urine WBC >25 H Ur Squamous Epith Cells NONE SEEN Urine Bacteria None Seen Ur Microscopic Review INDICATED Urine Culture Comments INDICATED PD MEDICAL DECISION MAKING - ED course Complexity details: re-evaluated patient (20:25Patient reexamined he has no abdominal pain no chest pain is nontoxic and nonseptic appearing vital signs are within normal limits updated the patient on his lab results and encouraged him to follow-up with his primary care provider as needed.) Departure - Departure Disposition: 01 Home, Self Care Clinical Impression: Viral syndrome Condition: Stable Instructions: ED Viral Syndrome Follow-Up: Jeff Lazaro MD [Primary Care Provider] - As Needed
[2019-06-30 19:43] LABS: BASOPHILS % (AUTO) 0.1 %; EOSINOPHILS % (AUTO) 0.3 %; HGB - HEMOGLOBIN 13.4 g/dL (14.0-18.0); LYMPHOCYTES % (AUTO) 7.3 %; MEAN CORPUSCULAR HGB CONC 34.1 g/dL (32.0-36.0); MEAN CORPUSCULAR VOLUME 87.9 fL (80.0-94.0); MEAN PLATELET VOLUME 9.3 fL (7.4-11.4); MONOCYTES # (AUTO) 0.8 10^3/uL (0.0-1.0); MONOCYTES % (AUTO) 5.8 %; NEUTROPHILS % (AUTO) 86.1 %; PLT - PLATELET COUNT 236 10^3/uL (130-450); RED BLOOD COUNT 4.47 10^6/uL (4.70-6.10); RED CELL DISTRIBUTION WIDTH 13.2 % (12.0-15.0); WHITE BLOOD COUNT 13.9 x10^3/uL (4.8-10.8)
[2019-06-30 19:57] LABS: ALBUMIN 4.6 g/dL (3.2-5.5); BILIRUBIN,DIRECT 0.1 mg/dL (0.1-0.5); BILIRUBIN,TOTAL 0.9 mg/dL (0.2-1.0); CALCIUM 9.6 mg/dL (8.5-10.3); CREATININE 1.1 mg/dL (0.6-1.2); TOTAL PROTEIN 7.5 g/dL (6.7-8.2)
[2019-06-30 20:07] LABS: BILIRUBIN,URINE NEGATIVE (NEGATIVE); GLUCOSE, URINE (UA) NEGATIVE (NEGATIVE); KETONES,URINE (UA) NEGATIVE (NEGATIVE); LEUKOCYTE ESTERASE, URINE SMALL (NEGATIVE); NITRITE,URINE NEGATIVE (NEGATIVE); OCCULT BLOOD,URINE NEGATIVE (NEGATIVE); PROTEIN,URINE NEGATIVE (NEGATIVE); UROBILINOGEN,URINE 0.2 (NORMAL) E.U./dL (NORMAL)
[2019-06-30 20:09] LABS: CLARITY,URINE CLEAR (CLEAR)
[2019-06-30 20:19] LABS: BACTERIA,URINE None Seen /HPF (None Seen); RBC,URINE None Seen /HPF (0-5); SQUAMOUS EPITHELIAL CELL,UR NONE SEEN (<= Few)
== END 2019-06-30 20:36 | disposition home or self-care (01) ==
LOC: ED 18:45
DX: I10 Essential (primary) hypertension (principal); Z87.891 Personal history of nicotine dependence; B34.9 Viral infection, unspecified
CPT/HCPCS: 36415; 80048; 80076; 81001; 81003; 83690; 85025; 87077; 87086; 87181; 99281; 99283

== ENCOUNTER 2019-07-03 23:35 | Outpatient (CLI) | payer MEDICARE, MEDICAID | END 2019-07-03 23:36 | disposition critical access hospital (66) | LOC: EMS 23:35 | PROVIDERS: ATTEND Surgery | DX: R55 Syncope and collapse (principal); R41.82 Altered mental status, unspecified | CPT/HCPCS: A0425; A0429 ==

== ENCOUNTER 2019-07-03 23:45 | Emergency (ER) | payer MEDICARE, MEDICAID ==
--- NOTE | 2019-07-03 23:55 | ED Physician Documentation ---
History of Present Illness - Stated complaint Stated Complaint: AMS - History obtained from History obtained from: Patient (the patient is a 53 y/o male who presents via ems for a cc of itching all over. he took 50 mg of benadryl prior to arrival and states he feels better now and would like to be dcd home. denies any other complaints. he was seen here 3 days ago and discharged, his urine culture is positive for enterobacter aerogenes, he states he is on bactrim currently for h is uti. patient was seen at an outside facility prior to presenting to our ED and was dcd home.) Review of Systems Constitutional: reports: Reviewed and negative Eyes: reports: Reviewed and negative Ears: reports: Reviewed and negative Nose: reports: Reviewed and negative Throat: reports: Reviewed and negative Cardiac: reports: Reviewed and negative Respiratory: reports: Reviewed and negative GI: reports: Reviewed and negative : reports: Dysuria Skin: reports: Rash Musculoskeletal: reports: Reviewed and negative Neurologic: reports: Reviewed and negative Psychiatric: reports: Reviewed and negative Endocrine: reports: Reviewed and negative Immunocompromised: reports: Reviewed and negative PD PAST MEDICAL HISTORY - Past Medical History Cardiovascular: Hypertension, High cholesterol, Atrial fibrillation Respiratory: COPD Neuro: None Endocrine/Autoimmune: None GI: GERD : None HEENT: None Psych: Depression, Anxiety, Bipolar disorder Musculoskeletal: Osteoarthritis, Fibromyalgia, Chronic back pain Derm: None - Past Surgical History Past Surgical History: Yes Ortho: Arthroscopic surgery, Spine surgery, Other - Present Medications Home Medications: Ambulatory Orders Medication Instructions Recorded Confirmed Albuterol Sulf [Ventolin Hfa 3 puffs PO DAILY 02/16/17 02/16/17 Inhaler] Buspirone HCl 1 tab PO TID 02/16/17 02/16/17 Fenofibrate 160 mg PO DAILY 02/16/17 02/16/17 Fluticasone [Flonase] 2 spray ROSSY DAILY 02/16/17 03/11/18 Montelukast [Singulair] 10 mg PO DAILY 02/16/17 03/11/18 Pramipexole [Mirapex] 0.25 mg PO DAILY PM 02/16/17 03/11/18 Pravastatin [Pravachol] 20 mg PO DAILY PM 02/16/17 03/11/18 Propranolol ER [Inderal LA] 80 mg PO BID 02/16/17 03/11/18 QUEtiapine [SEROquel] 200 mg PO DAILY PM 02/16/17 03/11/18 Finasteride 2.5 mg PO 12/01/17 Ramelteon [Rozerem] 1 tab ORAL DAILY 03/11/18 03/11/18 Cyclobenzaprine [Flexeril] 10 mg PO TID PRN #20 tablet 09/08/18 Furosemide 40 mg ORAL DAILY 12/23/18 12/23/18 Lamotrigine [Lamictal (Blue)] 25 mg PO BID 12/23/18 12/23/18 Pregabalin 100 mg PO QID 12/23/18 12/23/18 Cefdinir 300 mg PO BID 7 Days #14 capsule 07/04/19 - Allergies Allergies/Adverse Reactions: Allergies Allergy/AdvReac Type Severity Reaction Status Date / Time codeine Allergy Unknown Verified 07/03/19 23:55 hydrocodone [From Vicodin] AdvReac Emesis Verified 07/03/19 23:55 - Social History Does the pt smoke?: No Smoking Status: Former smoker Does the pt drink ETOH?: No Does the pt have substance abuse?: No - Immunizations Immunizations are current?: Yes - POLST Patient has POLST: No PD ED PE NORMAL - Vitals Vital signs reviewed: Yes - General General: Alert and oriented X 3, No acute distress, Well developed/nourished - HEENT HEENT: Atraumatic, PERRL, Ears normal, Moist mucous membranes, Pharynx benign - Neck Neck: Supple, no meningeal sign, No adenopathy - Cardiac Cardiac: RRR, No murmur, Strong equal pulses - Respiratory Respiratory: No respiratory distress, Clear bilaterally - Abdomen Abdomen: Normal bowel sounds, Soft, Non tender, Non distended, No organomegaly - Back Back: No CVA TTP, No spinal TTP - Derm Derm: Normal color, Warm and dry, No rash - Extremities Extremities: No deformity, No tenderness to palpate, Normal ROM s pain, No calf tenderness / cord - Neuro Neuro: Alert and oriented X 3, ob/gyn 2-12 intact, No motor deficit, No sensory deficit, Normal speech - Psych Psych: Normal mood, Normal affect Results - Vitals Vitals: Vital Signs - 24 hr 07/03/19 23:50 Temperature 98.2 C H Heart Rate 79 Respiratory 12 Rate Blood Pressure 156/54 H O2 Saturation 99 Oxygen O2 Source Room air PD MEDICAL DECISION MAKING - ED course Complexity details: considered differential (patient is does have medical decision making capability and capacity. his urine is positive for enterbacter aerogenes, he states he is taking bactrim and noticed he became red and itching he could possibly be having an allergic reaction, will dc bactrim and start on cefdinir.) Departure - Departure Disposition: 01 Home, Self Care Clinical Impression: UTI (urinary tract infection) Qualifiers: Urinary tract infection type: site unspecified Hematuria presence: without hematuria Qualified Code(s): N39.0 - Urinary tract infection, site not specified Condition: Stable Instructions: ED UTI Cystitis Male Follow-Up: your, doctor [Other] - Tomorrow Prescriptions: Cefdinir 300 mg PO BID 7 Days #14 capsule Comments: discontinue bactrim, start taking cefdinir as directed, f/u w your pcp today for a follow up.
[2019-07-03 23:57] VITALS: BP 156/54
[2019-07-04] MEDS ORDERED: SODIUM CHLORIDE 0.9% 1,000 ML IV ONE (00:18)
[2019-07-04] MEDS ORDERED: cefTRIAXone 1 GM in SODIUM CHLORIDE 0.9% MINIBAG 100 ML IV STA (00:18)
[2019-07-04] MEDS ORDERED: cefTRIAXone 1 GM VIAL IM STA (00:38)
[2019-07-04] MEDS ORDERED: LIDOCAINE 1% 2 ML VIAL MC ONE (00:38)
== END 2019-07-04 01:43 | disposition home or self-care (01) ==
LOC: EDUNIT# → ED 23:45
DX: N39.0 Urinary tract infection, site not specified (principal); I10 Essential (primary) hypertension; F31.61 Bipolar disorder, current episode mixed, mild; Z87.891 Personal history of nicotine dependence
CPT/HCPCS: 36415; 80053; 81003; 83690; 84443; 85025; 93005; 96372; 99283; 99284; A9270; 80048; 80076; 80306; 80307; 80320; 80329; 81001; 82550; 83605; 83735; 87040; 87086

== ENCOUNTER 2019-07-04 09:19 | Outpatient (CLI) | payer MEDICARE, MEDICAID | END 2019-07-04 09:20 | disposition critical access hospital (66) | LOC: EMS 09:19 | PROVIDERS: ATTEND Surgery | DX: F41.9 Anxiety disorder, unspecified (principal) | CPT/HCPCS: A0425; A0429 ==

== ENCOUNTER 2019-07-04 09:31 | Emergency (ER) | payer MEDICARE, MEDICAID ==
[2019-07-04 09:57] VITALS: BP 126/56
--- NOTE | 2019-07-04 10:01 | ED Physician Documentation ---
PD HPI MHE - Stated complaint Stated Complaint: MHE - Chief complaint Chief Complaint: MHE - History obtained from History obtained from: Patient, EMS - History of Present Illness Primary symptom: Depression, Manic Timing - onset: How many months ago (3) Pain level max: 0 Pain level now: 0 - Additional information Additional information: 53-year-old male states that he would like voluntary placement for psychiatric admission. He feels like his mood has been more labile than it usually is. He states that he feels like he is going between manic and depressive states. Is not currently suicidal or homicidal. Nothing makes it better or worse. No changes in his medication. Per EMS [facility] said that they have beds available today. Review of Systems Ten Systems: 10 systems reviewed and negative Constitutional: denies: Fever, Chills Respiratory: denies: Cough GI: denies: Vomiting, Diarrhea Skin: denies: Rash Musculoskeletal: denies: Neck pain, Back pain Neurologic: denies: Headache Psychiatric: reports: Anxiety. denies: Suicidal, Homicidal, Hallucinations PD PAST MEDICAL HISTORY - Past Medical History Cardiovascular: Hypertension, High cholesterol, Atrial fibrillation Respiratory: COPD Neuro: None Endocrine/Autoimmune: None GI: GERD : None HEENT: None Psych: Depression, Anxiety, Bipolar disorder Musculoskeletal: Osteoarthritis, Fibromyalgia, Chronic back pain Derm: None - Past Surgical History Past Surgical History: Yes Ortho: Arthroscopic surgery, Spine surgery, Other - Present Medications Home Medications: Ambulatory Orders Medication Instructions Recorded Confirmed Albuterol Sulf [Ventolin Hfa 3 puffs PO DAILY 02/16/17 02/16/17 Inhaler] Buspirone HCl 1 tab PO TID 02/16/17 02/16/17 Fluticasone [Flonase] 2 spray ROSSY DAILY 02/16/17 03/11/18 Montelukast [Singulair] 10 mg PO DAILY 02/16/17 03/11/18 Pramipexole [Mirapex] 0.25 mg PO DAILY PM 02/16/17 03/11/18 Pravastatin [Pravachol] 20 mg PO DAILY PM 02/16/17 03/11/18 Propranolol ER [Inderal LA] 80 mg PO BID 02/16/17 03/11/18 QUEtiapine [SEROquel] 200 mg PO DAILY PM 11/02/17 11/25/18 Cyclobenzaprine [Flexeril] 10 mg PO TID PRN #20 tablet 09/08/18 Furosemide 40 mg ORAL DAILY 12/23/18 12/23/18 Lamotrigine [Lamictal (Blue)] 25 mg PO BID 12/23/18 12/23/18 Cefdinir 300 mg PO BID 7 Days #14 capsule 07/04/19 - Allergies Allergies/Adverse Reactions: Allergies Allergy/AdvReac Type Severity Reaction Status Date / Time codeine Allergy Unknown Verified 07/03/19 23:55 hydrocodone [From Vicodin] AdvReac Emesis Verified 07/03/19 23:55 - Social History Does the pt smoke?: No Smoking Status: Former smoker Does the pt drink ETOH?: No Does the pt have substance abuse?: No - Immunizations Immunizations are current?: Yes - POLST Patient has POLST: No PD ED PE NORMAL - Vitals Vital signs reviewed: Yes - General General: Alert and oriented X 3, No acute distress, Well developed/nourished - HEENT HEENT: Moist mucous membranes, Pharynx benign - Neck Neck: Supple, no meningeal sign - Cardiac Cardiac: RRR, No murmur, Strong equal pulses - Respiratory Respiratory: No respiratory distress, Clear bilaterally - Abdomen Abdomen: Soft, Non tender, Non distended - Derm Derm: Warm and dry, No rash - Extremities Extremities: No edema - Neuro Neuro: Alert and oriented X 3, 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, No motor deficit, No sensory deficit Eye Opening: Spontaneous Motor: Obeys Commands Verbal: Oriented GCS Score: 15 - Psych Psych: Normal mood, Normal affect Results - Vitals Vitals: Vital Signs - 24 hr 07/04/19 07/04/19 09:50 16:18 Temperature 37.4 C Heart Rate 89 Respiratory 18 17 Rate Blood Pressure 126/56 L O2 Saturation 99 Oxygen O2 Source Room air - EKG (time done) 1152 Rate: Rate (enter#) (88) Rhythm: NSR Intervals: RBBB - Labs Labs: Laboratory Tests 07/04/19 07/04/19 07/04/19 11:01 11:41 11:41 WBC 7.5 RBC 4.58 L Hgb 13.7 L Hct 40.9 L MCV 89.3 MCH 29.9 MCHC 33.5 RDW 13.2 Plt Count 316 MPV 9.7 Neut # (Auto) 6.2 Lymph # (Auto) 0.9 L [place] # (Auto) 0.4 Eos # (Auto) 0.0 Baso # (Auto) 0.0 Absolute Nucleated RBC 0.00 Nucleated RBC % 0.0 Sodium 137 Potassium 3.5 Chloride 104 Carbon Dioxide 21 Anion Gap 12.0 BUN 15 Creatinine 1.0 Estimated GFR (MDRD) 78 L Glucose 94 Calcium 9.8 Total Bilirubin 0.8 AST 43 H ALT 35 Alkaline Phosphatase 59 Total Protein 8.2 Albumin 4.7 Globulin 3.5 Albumin/Globulin Ratio 1.3 Lipase 28 TSH Urine Color YELLOW Urine Clarity CLEAR Urine pH 7.0 Ur Specific Miranda 1.010 Urine Protein NEGATIVE Urine Glucose (UA) NEGATIVE Urine Ketones NEGATIVE Urine Occult Blood NEGATIVE Urine Nitrite NEGATIVE Urine Bilirubin NEGATIVE Urine Urobilinogen 0.2 (NORMAL) Ur Leukocyte Esterase NEGATIVE Ur Microscopic Review NOT INDICATED Urine Culture Comments NOT INDICATED Salicylates < 6.0 Urine Opiates Screen NEGATIVE Ur Oxycodone Screen NEGATIVE Urine Methadone Screen NEGATIVE Ur Propoxyphene Screen NEGATIVE Acetaminophen < 10 L Ur Barbiturates Screen NEGATIVE Ur Tricyclics Screen NEGATIVE Ur Phencyclidine Scrn NEGATIVE Ur Amphetamine Screen NEGATIVE U Methamphetamines Scrn NEGATIVE U Benzodiazepines Scrn POSITIVE H Urine Cocaine Screen NEGATIVE U Cannabinoids Screen NEGATIVE Ethyl Alcohol < 5.0 07/04/19 11:41 WBC RBC Hgb Hct MCV MCH MCHC RDW Plt Count MPV Neut # (Auto) Lymph # (Auto) [place] # (Auto) Eos # (Auto) Baso # (Auto) Absolute Nucleated RBC Nucleated RBC % Sodium Potassium Chloride Carbon Dioxide Anion Gap BUN Creatinine Estimated GFR (MDRD) Glucose Calcium Total Bilirubin AST ALT Alkaline Phosphatase Total Protein Albumin Globulin Albumin/Globulin Ratio Lipase TSH 1.40 Urine Color Urine Clarity Urine pH Ur Specific Miranda Urine Protein Urine Glucose (UA) Urine Ketones Urine Occult Blood Urine Nitrite Urine Bilirubin Urine Urobilinogen Ur Leukocyte Esterase Ur Microscopic Review Urine Culture Comments Salicylates Urine Opiates Screen Ur Oxycodone Screen Urine Methadone Screen Ur Propoxyphene Screen Acetaminophen Ur Barbiturates Screen Ur Tricyclics Screen Ur Phencyclidine Scrn Ur Amphetamine Screen U Methamphetamines Scrn U Benzodiazepines Scrn Urine Cocaine Screen U Cannabinoids Screen Ethyl Alcohol PD MEDICAL DECISION MAKING - ED course Complexity details: reviewed results, re-evaluated patient, considered differential, d/w patient ED course: Patient is medically clear for psychiatric care. Social work was consulted. Patient was declined by [facility] because of his history of atrial fibrillation and an EKG showing a right bundle branch block. Patient states that he is feeling better and more under control. He is not currently psychotic. He is not homicidal or suicidal. Not gravely disabled. No criteria for involuntary hold. Patient is able to contract for safety and would like to go home at this time. Patient counseled regarding signs and symptoms for which I believe and urgent re-evaluation would be necessary. Patient with good understanding of and agreement to plan and is comfortable going home at this time This document was made in part using voice recognition software. While efforts are made to proofread this document, sound alike and grammatical errors may occur. Departure - Departure Disposition: 01 Home, Self Care Clinical Impression: Bipolar affective disorder Qualifiers: Active/Remission status: currently active Current bipolar episode type: mixed Current episode severity: mild Qualified Code(s): F31.61 - Bipolar disorder, current episode mixed, mild Condition: Good Instructions: ED Manic Depression Follow-Up: Jeff Lazaro MD [Primary Care Provider] - Within 1 week Comments: Return if you worsen or change your mind about going to a psychiatric hospital. You are welcome to return at any time. Crisis Line and is available to talk to someone [email or web address] is also available to chat with someone online if you prefer. There are also many resources on this website and apps for your phone to help with your mental health You can also text the word START to [phone] to chat with someome via text. Discharge Date/Time: 07/04/19 16:22
[2019-07-04 11:11] LABS: MUDS CUTOFF CONCENTRATIONS CUTOFF CONC BELOW:
[2019-07-04 11:18] LABS: BILIRUBIN,URINE NEGATIVE (NEGATIVE); GLUCOSE, URINE (UA) NEGATIVE (NEGATIVE); KETONES,URINE (UA) NEGATIVE (NEGATIVE); LEUKOCYTE ESTERASE, URINE NEGATIVE (NEGATIVE); NITRITE,URINE NEGATIVE (NEGATIVE); OCCULT BLOOD,URINE NEGATIVE (NEGATIVE); PROTEIN,URINE NEGATIVE (NEGATIVE); UROBILINOGEN,URINE 0.2 (NORMAL) E.U./dL (NORMAL)
[2019-07-04 11:20] LABS: CLARITY,URINE CLEAR (CLEAR)
[2019-07-04 11:27] LABS: AMPHETAMINE SCREEN,URINE NEGATIVE (NEGATIVE); BENZODIAZEPINES SCREEN, URINE POSITIVE (NEGATIVE); COCAINE SCREEN URINE NEGATIVE (NEGATIVE); METHADONE SCREEN, URINE NEGATIVE (NEGATIVE); METHAMPHETAMINES SCREEN, URINE NEGATIVE (NEGATIVE); OPIATE SCREEN, URINE NEGATIVE (NEGATIVE); OXYCODONE SCREEN, URINE NEGATIVE (NEGATIVE); PROPOXYPHENE SCREEN, URINE NEGATIVE (NEGATIVE); TRICYCLIC ANTIDEPRESSANT,URINE NEGATIVE (NEGATIVE)
[2019-07-04 12:18] LABS: BASOPHILS % (AUTO) 0.3 %; EOSINOPHILS % (AUTO) 0.5 %; HGB - HEMOGLOBIN 13.7 g/dL (14.0-18.0); LYMPHOCYTES # (AUTO) 0.9 10^3/uL (1.5-3.5); LYMPHOCYTES % (AUTO) 11.4 %; MEAN CORPUSCULAR HEMOGLOBIN 29.9 pg (27.0-31.0); MEAN CORPUSCULAR HGB CONC 33.5 g/dL (32.0-36.0); MEAN CORPUSCULAR VOLUME 89.3 fL (80.0-94.0); MEAN PLATELET VOLUME 9.7 fL (7.4-11.4); MONOCYTES # (AUTO) 0.4 10^3/uL (0.0-1.0); MONOCYTES % (AUTO) 5.2 %; NEUTROPHILS # (AUTO) 6.2 10^3/uL (1.5-6.6); NEUTROPHILS % (AUTO) 82.3 %; PLT - PLATELET COUNT 316 10^3/uL (130-450); RED BLOOD COUNT 4.58 10^6/uL (4.70-6.10); RED CELL DISTRIBUTION WIDTH 13.2 % (12.0-15.0); WHITE BLOOD COUNT 7.5 x10^3/uL (4.8-10.8)
[2019-07-04 12:29] LABS: ACETAMINOPHEN < 10 ug/mL (10-30); ALBUMIN 4.7 g/dL (3.2-5.5); ALBUMIN/GLOBULIN RATIO 1.3 (1.0-2.2); ALKALINE PHOSPHATASE 59 IU/L (42-121); ALT ALANINE AMINOTRANSFERASE 35 IU/L (10-60); AST ASPARTATE AMINOTRANSFERASE 43 IU/L (10-42); BILIRUBIN,TOTAL 0.8 mg/dL (0.2-1.0); BUN - BLOOD UREA NITROGEN 15 mg/dL (6-20); CALCIUM 9.8 mg/dL (8.5-10.3); CARBON DIOXIDE - CO2 21 mmol/L (21-32); CHLORIDE 104 mmol/L (101-111); GFR - MDRD 78 (>89); GLUCOSE 94 mg/dL (70-100); LIPASE 28 U/L (22-51); SALICYLATE < 6.0 mg/dL; SODIUM 137 mmol/L (135-145); TOTAL PROTEIN 8.2 g/dL (6.7-8.2)
[2019-07-04] MEDS ORDERED: diazePAM 5 MG TABLET PO STA (14:10)
[2019-07-04] MEDS ORDERED: BACITRACIN ZINC OINT 1 PACKET TOP STA (14:43)
[2019-07-04] MEDS ORDERED: PROPRANOLOL 10 MG TABLET PO SCH (21:00)
== END 2019-07-04 16:22 | disposition home or self-care (01) ==
LOC: EDUNIT# → ED 09:31
DX: F31.61 Bipolar disorder, current episode mixed, mild (principal); I10 Essential (primary) hypertension; Z87.891 Personal history of nicotine dependence
CPT/HCPCS: 36415; 80053; 81003; 83690; 84443; 85025; 93005; 99284; A9270; 80306; 80307; 80320; 80329; 81001; 87086

== ENCOUNTER 2019-07-05 10:20 | Outpatient (CLI) | payer MEDICARE, MEDICAID | END 2019-07-05 10:21 | disposition critical access hospital (66) | LOC: EMS 10:20 | PROVIDERS: ATTEND Surgery | DX: R45.89 Other symptoms and signs involving emotional state (principal) ==

== ENCOUNTER 2019-07-05 10:39 | Emergency (ER) | payer MEDICARE, MEDICAID ==
--- NOTE | 2019-07-05 11:14 | ED Physician Documentation ---
History of Present Illness - Stated complaint Stated Complaint: MHE - Chief complaint Chief Complaint: MHE - History obtained from History obtained from: Patient, EMS - History of Present Illness Timing: Today Pain level max: 0 Pain level now: 0 - Additonal information Additional information: 53-year-old male presents to the emergency department after EMS was called by the primary care clinic. At the clinic states that he came in originally coughing and asking for a Covid-19 test, apparently he slumped over in the waiting room and was "unconscious". They stated that when they got to him he would not respond to them, a sternal rub caused him to awaken sharply. The clinic states that he has done this type of behavior in the past and this is not unusual for him. He was seen here yesterday for a voluntary mental health placement, he became tired of waiting and decided to leave. He refused any further work-up at that time. Review of Systems Ten Systems: 10 systems reviewed and negative Constitutional: denies: Fever, Chills Nose: reports: Rhinorrhea / runny nose. denies: Congestion Cardiac: denies: Chest pain / pressure Respiratory: reports: Cough. denies: Hemoptysis GI: denies: Abdominal Pain, Nausea, Vomiting, Diarrhea, Hematemesis Skin: denies: Rash Musculoskeletal: denies: Neck pain, Back pain Neurologic: denies: Headache PD PAST MEDICAL HISTORY - Past Medical History Cardiovascular: Hypertension, High cholesterol, Atrial fibrillation Respiratory: COPD Neuro: None Endocrine/Autoimmune: None GI: GERD : None HEENT: None Psych: Depression, Anxiety, Bipolar disorder Musculoskeletal: Osteoarthritis, Fibromyalgia, Chronic back pain Derm: None - Past Surgical History Past Surgical History: Yes Ortho: Arthroscopic surgery, Spine surgery, Other - Present Medications Home Medications: Ambulatory Orders Medication Instructions Recorded Confirmed Albuterol Sulf [Ventolin Hfa 3 puffs PO DAILY 02/16/17 02/16/17 Inhaler] Buspirone HCl 1 tab PO TID 02/16/17 02/16/17 Fluticasone [Flonase] 2 spray ROSSY DAILY 02/16/17 03/11/18 Montelukast [Singulair] 10 mg PO DAILY 02/16/17 03/11/18 Pramipexole [Mirapex] 0.25 mg PO DAILY PM 02/16/17 03/11/18 Pravastatin [Pravachol] 20 mg PO DAILY PM 02/16/17 03/11/18 Propranolol ER [Inderal LA] 80 mg PO BID 02/16/17 03/11/18 QUEtiapine [SEROquel] 200 mg PO DAILY PM 02/16/17 03/11/18 Cyclobenzaprine [Flexeril] 10 mg PO TID PRN #20 tablet 09/08/18 Furosemide 40 mg ORAL DAILY 12/23/18 12/23/18 Lamotrigine [Lamictal (Blue)] 25 mg PO BID 12/23/18 12/23/18 Cefdinir 300 mg PO BID 7 Days #14 capsule 07/04/19 - Allergies Allergies/Adverse Reactions: Allergies Allergy/AdvReac Type Severity Reaction Status Date / Time codeine Allergy Unknown Verified 07/03/19 23:55 hydrocodone [From Vicodin] AdvReac Emesis Verified 07/03/19 23:55 - Social History Does the pt smoke?: No Smoking Status: Former smoker Does the pt drink ETOH?: No Does the pt have substance abuse?: No - Immunizations Immunizations are current?: Yes - POLST Patient has POLST: No PD ED PE NORMAL - Vitals Vital signs reviewed: Yes - General General: Alert and oriented X 3, No acute distress - HEENT HEENT: Moist mucous membranes - Neck Neck: Supple, no meningeal sign - Cardiac Cardiac: RRR - Respiratory Respiratory: No respiratory distress, Clear bilaterally - Abdomen Abdomen: Soft, Non tender, Non distended - Derm Derm: Warm and dry - Extremities Extremities: No calf tenderness / cord - Neuro Neuro: Alert and oriented X 3, 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 2-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, No motor deficit, No sensory deficit, Normal speech Eye Opening: Spontaneous Motor: Obeys Commands Verbal: Oriented GCS Score: 15 Results - Vitals Vitals: Vital Signs - 24 hr 07/05/19 10:48 Temperature 36.7 C Heart Rate 67 Respiratory 18 Rate Blood Pressure 141/71 H O2 Saturation 100 Oxygen O2 Source Room air - Labs Labs: Laboratory Tests 07/05/19 07/05/19 07/05/19 11:15 11:15 11:15 WBC 8.6 RBC 4.44 L Hgb 13.3 L Hct 38.7 L MCV 87.2 MCH 30.0 MCHC 34.4 RDW 13.2 Plt Count 329 MPV 9.0 Neut # (Auto) 6.9 H Lymph # (Auto) 1.1 L [place] # (Auto) 0.6 Eos # (Auto) 0.1 Baso # (Auto) 0.0 Absolute Nucleated RBC 0.00 Nucleated RBC % 0.0 Sodium 130 L Potassium 3.4 L Chloride 97 L Carbon Dioxide 23 Anion Gap 10.0 BUN 18 Creatinine 1.2 Estimated GFR (MDRD) 63 L Glucose 115 H Calcium 9.5 Total Bilirubin 0.8 AST 50 H ALT 37 Alkaline Phosphatase 55 Troponin I High Sens Total Protein 7.8 Albumin 4.5 Globulin 3.3 Albumin/Globulin Ratio 1.4 Lipase 32 TSH 1.44 Salicylates < 6.0 Acetaminophen < 10 L Ethyl Alcohol < 5.0 07/05/19 11:15 WBC RBC Hgb Hct MCV MCH MCHC RDW Plt Count MPV Neut # (Auto) Lymph # (Auto) [place] # (Auto) Eos # (Auto) Baso # (Auto) Absolute Nucleated RBC Nucleated RBC % Sodium Potassium Chloride Carbon Dioxide Anion Gap BUN Creatinine Estimated GFR (MDRD) Glucose Calcium Total Bilirubin AST ALT Alkaline Phosphatase Troponin I High Sens 3.1 Total Protein Albumin Globulin Albumin/Globulin Ratio Lipase TSH Salicylates Acetaminophen Ethyl Alcohol - Rads (name of study) cxr Radiology: Prelim report reviewed, EMP read contemporaneously, See rad report (Low lung volumes. 2. No focal consolidation. 3. Perihilar bronchial wall thickening could represent bronchitis or reactive airways disease. ) PD MEDICAL DECISION MAKING - ED course Complexity details: reviewed results, re-evaluated patient, considered differential, d/w patient ED course: Patient actively denies any mental health complaints to me. He states that he wants to go to a psychiatric facility so he does not have to go home because he is afraid he will get his roommate sick. Informed him that that is not an adequate reason to go to a mental health facility. Patient then "slumped" into the bed on the monitor, no arrhythmias. He awoke easily and briskly with a sternal rub. Patient has no further complaints at this time. Does not meet any admission criteria. Patient then refused to leave the emergency department and was escorted out by police. Patient also threw things around the room because he did not want to leave. He is not homicidal or suicidal. He is not gravely disabled. He is not acutely psychotic. This document was made in part using voice recognition software. While efforts are made to proofread this document, sound alike and grammatical errors may occur. Departure - Departure Disposition: 01 Home, Self Care Clinical Impression: Viral URI Condition: Good Instructions: ED URI Viral Follow-Up: Jeff Lazaro MD [Primary Care Provider] - Within 1 week Comments: Go home and rest. Stay away from other people. Drink plenty of fluids and rest.
[2019-07-05 11:25] LABS: BASOPHILS % (AUTO) 0.2 %; EOSINOPHILS # (AUTO) 0.1 10^3/uL (0.0-0.7); HGB - HEMOGLOBIN 13.3 g/dL (14.0-18.0); LYMPHOCYTES # (AUTO) 1.1 10^3/uL (1.5-3.5); LYMPHOCYTES % (AUTO) 12.2 %; MEAN CORPUSCULAR HGB CONC 34.4 g/dL (32.0-36.0); MEAN CORPUSCULAR VOLUME 87.2 fL (80.0-94.0); MONOCYTES # (AUTO) 0.6 10^3/uL (0.0-1.0); MONOCYTES % (AUTO) 6.8 %; NEUTROPHILS # (AUTO) 6.9 10^3/uL (1.5-6.6); NEUTROPHILS % (AUTO) 79.3 %; PLT - PLATELET COUNT 329 10^3/uL (130-450); RED BLOOD COUNT 4.44 10^6/uL (4.70-6.10); RED CELL DISTRIBUTION WIDTH 13.2 % (12.0-15.0); WHITE BLOOD COUNT 8.6 x10^3/uL (4.8-10.8)
--- NOTE | 2019-07-05 11:30 | XRAY Report ---
Reason: cough Procedure Date: 07/05/2019 Accession Number: [id number] / [id number] Procedure: XR - Chest 1 View X-Ray CPT Code: 25093 Final Report FULL RESULT: EXAM: CHEST RADIOGRAPHY EXAM DATE: 07/05/2019 11:12 AM. CLINICAL HISTORY: COUGH. COMPARISON: CHEST 2 VIEW 01/11/2019 11:42 AM. TECHNIQUE: 1 view. FINDINGS: Lungs/Pleura: The lung volumes are diminished and slightly more so compared to prior exam. No visible focal pulmonary opacities, effusions or edema evident. Mild perihilar bronchial wall thickening noted. Mediastinum: Within exam limitations, the cardiomediastinal contour is normal. Other: None. IMPRESSION: 1. Low lung volumes. 2. No focal consolidation. 3. Perihilar bronchial wall thickening could represent bronchitis or reactive airways disease. RADIA
[2019-07-05 11:42] LABS: ACETAMINOPHEN < 10 ug/mL (10-30); ALBUMIN 4.5 g/dL (3.2-5.5); ALBUMIN/GLOBULIN RATIO 1.4 (1.0-2.2); ALKALINE PHOSPHATASE 55 IU/L (42-121); ALT ALANINE AMINOTRANSFERASE 37 IU/L (10-60); AST ASPARTATE AMINOTRANSFERASE 50 IU/L (10-42); BILIRUBIN,TOTAL 0.8 mg/dL (0.2-1.0); BUN - BLOOD UREA NITROGEN 18 mg/dL (6-20); CALCIUM 9.5 mg/dL (8.5-10.3); CARBON DIOXIDE - CO2 23 mmol/L (21-32); CHLORIDE 97 mmol/L (101-111); CREATININE 1.2 mg/dL (0.6-1.2); GFR - MDRD 63 (>89); GLUCOSE 115 mg/dL (70-100); LIPASE 32 U/L (22-51); SALICYLATE < 6.0 mg/dL; SODIUM 130 mmol/L (135-145); TOTAL PROTEIN 7.8 g/dL (6.7-8.2)
[2019-07-05 12:25] VITALS: BP 150/74
== END 2019-07-05 12:25 | disposition home or self-care (01) ==
LOC: EDUNIT# → EDBD → ED 10:39
DX: J06.9 Acute upper respiratory infection, unspecified (principal); I10 Essential (primary) hypertension; Z87.891 Personal history of nicotine dependence
CPT/HCPCS: 36415; 71045; 80053; 80307; 80320; 80329; 83690; 84443; 84484; 85025; 93005; 99282; 99284

== ENCOUNTER 2019-07-05 17:39 | Outpatient (CLI) | payer MEDICARE, MEDICAID | END 2019-07-05 17:40 | disposition short-term general hospital (02) | LOC: EMS 17:39 | PROVIDERS: ATTEND Surgery | DX: R50.9 Fever, unspecified (principal); R45.82 Worries; R10.9 Unspecified abdominal pain; R45.89 Other symptoms and signs involving emotional state | CPT/HCPCS: A0425; A0429 ==

== ENCOUNTER 2019-08-06 17:02 | Outpatient (CLI) | payer MEDICARE, MEDICAID ==
--- NOTE | 2019-08-06 15:09 | SLEEP CARE CONSULTATION ---
Information from patient questionnaire entered by Lily Pruett. I have reviewed and concur with the information entered by Lily Pruett. This document represents the service I personally performed and the decisions made by me, Tanner Rodriguez MD, [facility]. History of Present Illness Service Date and Time: 08/06/2019 1440 Previous diagnosis: Severe, Obstructive Sleep Apnea-Hypopnea Syndrome AHI: 46.6 Reason for follow up: annual Equipment type: CPAP Equipment obtained from: [facility] HPI additional information: To minimize the risk of COVID-19 exposure, the patient has requested and consented to this video telemedicine visit. The patient also agrees to having his insurance billed. HPI: Mr. Aguiar was called today to follow up on the nasal CPAP therapy. He was diagnosed to have severe obstructive sleep apnea-hypopnea syndrome. The patient wears a Respironics DreamWear full face mask. He reports using the device nigh tly and all through the night. The compliance report shows usage in 162 nights out of the past 180 nights, 5 hours a night. The > 4 hour compliance rate for the past 180 days is 60%. This is because he was in a care facility and had difficulty using his equipment. He said the respiratory therapist there also lowered the pressure to 7 cmH2O. He complained of no particular problem with the device such as soreness on the face, dry nose, epistaxis, nasal congestion or headache. On the CPAP therapy he notices improvement in his sleep quality, and that he wakes up feeling fresher in the morning and more awake/alert during the day. The residual AHI and air leak parameters are not reported by his machine. CPAP Compliance Data - Data Reviewed with Patient Average duration of nightly device use: 5h 1s Compliance rate %: 60.6 Current pressure setting (cmH2O): 7 Humidity settin Heated hose settin Subjective Initial [place] Sleepiness Scale score: 17 Allergies and Home Medications Drug allergies reviewed: Yes Home medication list reviewed: Yes Review of Systems Review of systems same as previous: Yes Physical Exam Height: 5 ft 7 in Impression and Plan IMPRESSION: 1. Obstructive Sleep Apnea-Hypopnea Syndrome, severe (AHI was 46.6), with the patient doing fairly well on nasal CPAP therapy. He has decent compliance and significant clinical improvement. The effectiveness of the treatment is unknown. No adjustment is necessary today. Because the CPAP is now older than the useful life of 5 years, I will order the patient a new one and make it an autoCPAP set between 5 and 10 cmH2O. PLAN: 1. Prescription made for an autoCPAP, heated humidifier, and related supplies. 2. Try to lose weight 3. Return for follow up after one month on the new machine. Visit Type: Telehealth Video Video Type: [employer] Patient Location: Home Location of Provider: Home Patient agrees and consents to this telehealth visit type: Yes Time Spent with Patient (minutes): 15 Provider Statement: I spent 100% of the Telehealth Video Call with the patient with greater than 50% spent counseling the patient and coordination of care.
== END 2019-08-06 17:03 | disposition home or self-care (01) ==
LOC: SC 17:02
PROVIDERS: ATTEND Internal Medicine Pulmonary Disease
DX: G47.33 Obstructive sleep apnea (adult) (pediatric) (principal)

== ENCOUNTER 2019-08-30 10:29 | Outpatient (CLI) | payer MEDICARE, MEDICAID ==
[2019-08-30 13:32] LABS: BILIRUBIN,URINE NEGATIVE (NEGATIVE); GLUCOSE, URINE (UA) NEGATIVE (NEGATIVE); KETONES,URINE (UA) NEGATIVE (NEGATIVE); LEUKOCYTE ESTERASE, URINE NEGATIVE (NEGATIVE); NITRITE,URINE NEGATIVE (NEGATIVE); OCCULT BLOOD,URINE NEGATIVE (NEGATIVE); PROTEIN,URINE NEGATIVE (NEGATIVE); UROBILINOGEN,URINE 0.2 (NORMAL) E.U./dL (NORMAL)
[2019-08-30 13:33] LABS: CLARITY,URINE CLEAR (CLEAR)
== END 2019-08-30 23:59 | disposition home or self-care (01) ==
LOC: LAB.WCP 10:29
PROVIDERS: ATTEND Family Medicine
DX: N39.0 Urinary tract infection, site not specified (principal)
CPT/HCPCS: 81001; 81003; 87086

== ENCOUNTER 2019-11-29 07:29 | Day surgery (SDC) | payer MEDICARE, MEDICAID ==
[~2019-11-29 07:29] MED LIST: LIDO GARGLE 30 ML BOTTLE ONE
[2019-11-29] MEDS ORDERED: LACTATED RINGERS 1,000 ML IV ONE ×2 (08:09→09:45)
[2019-11-29] MEDS ORDERED: LIDO GARGLE 30 ML BOTTLE ONE (09:00)
--- NOTE | 2019-11-29 09:34 | ANESTHESIA ---
Pre-Anesthesia VS, & Labs - Diagnosis stomach pain - Procedure egd Vital Signs: Temp Pulse Resp BP Pulse Ox 36.7 C 84 20 146/84 H 100 11/29/19 07:30 11/29/19 07:30 11/29/19 07:30 11/29/19 07:30 11/29/19 07:30 Height 5 ft 6 in Weight (kg) 109.4 kg Body Mass Index 36.0 - NPO >8 hours - Lab Results Lab results reviewed: Yes Home Medications and Allergies Home Medications: Ambulatory Orders Atorvastatin [Lipitor] 1 tab ORAL DAILY 11/29/19 Carbidopa/Levodopa [Carbidopa-Levo ER 50-200 Tab] 1 tab ORAL BID 11/29/19 Famotidine 20 mg ORAL DAILY 11/29/19 Finasteride 1 tab ORAL DAILY 11/29/19 OLANZapine [Zyprexa Zydis] 1 tab ORAL BID 11/29/19 OXcarbazepine [Oxcarbazepine] 1 tab ORAL BID 11/29/19 Albuterol Sulf [Ventolin Hfa Inhaler] 2 puffs PO DAILY PRN 02/16/17 Fluticasone [Flonase] 2 spray ROSSY DAILY 02/16/17 Pramipexole [Mirapex] 0.5 mg PO DAILY PM 02/16/17 Propranolol ER [Inderal LA] 80 mg PO BID 02/16/17 QUEtiapine [SEROquel] 200 mg PO DAILY PM 02/16/17 Furosemide 40 mg ORAL DAILY 12/23/18 Atorvastatin [Lipitor] 1 tab ORAL DAILY 11/29/19 Carbidopa/Levodopa [Carbidopa-Levo ER 50-200 Tab] 1 tab ORAL BID 11/29/19 Famotidine 20 mg ORAL DAILY 11/29/19 Finasteride 1 tab ORAL DAILY 11/29/19 OLANZapine [Zyprexa Zydis] 1 tab ORAL BID 11/29/19 OXcarbazepine [Oxcarbazepine] 1 tab ORAL BID 11/29/19 Allergies/Adverse Reactions: Allergies Allergy/AdvReac Type Severity Reaction Status Date / Time codeine Allergy Unknown Verified 07/03/19 23:55 hydrocodone [From Vicodin] AdvReac Emesis Verified 07/03/19 23:55 Anes History & Medical History - Anesthetic History Anesthesia Complications: reports: No previous complications Family history of Anesthesia Complications: Denies Family history of Malignant Hyperthermia: Denies - Medical History Cardiovascular: reports: Hypertension, High cholesterol, Atrial fibrillation Pulmonary: reports: COPD, Sleep apnea, CPAP use Gastrointestinal: reports: GERD Urinary: reports: None Neuro: reports: None Musculoskeletal: reports: Osteoarthritis, Fibromyalgia, Chronic back pain Endocrine/Autoimmune: reports: None Blood Disorders: reports: None Skin: reports: None Smoking Status: Former smoker Psychosocial: reports: Anxiety Other Past Medical History: bipolar - Surgical History Orthopedic: Knee replacement, Arthroscopic surgery, Spine surgery, Other Exam General: Alert, Oriented x3, Cooperative, No acute distress Dental: WNL Mouth Openin Fingerbreadth Neck Mobility: Normal Mallampati classification: II Respiratory: Lungs clear, Normal breath sounds, No respiratory distress, No accessory muscle use Cardiovascular: Regular rate, Normal S1, Normal S2, No murmurs Plan Anesthesia Type: MAC Consent for Procedure(s) Verified and Reviewed: Yes Code Status: Attempt Resuscitation ASA classification: 3-Severe systemic disease Is this case an emergency?: No
[2019-11-29 09:55] VITALS: BP 116/75
--- NOTE | 2019-11-29 09:56 | ANESTHESIA POST OP EVALUATION ---
Anesthesia Post Eval - Post Anesthesia Eval Vitals: Last Vital Signs Temp 36.6 C 11/29/19 09:46 Pulse 84 11/29/19 09:54 Resp 20 11/29/19 09:54 BP 116/75 11/29/19 09:54 Pulse Ox 100 11/29/19 09:54 CV Function Including HR & BP: positive: Stable Pain Control: positive: Satisfactory Nausea & Vomiting: positive: Negative Mental Status: positive: Baseline Respiratory Status: Airway Patent Hydration Status: Satisfactory Anesthesia Complications: positive: None
== END 2019-11-29 07:30 | disposition home or self-care (01) ==
LOC: SDS 07:29
PROVIDERS: ATTEND Surgery
PROC: 0DB68ZX Excision of Stomach, Via Natural or Artificial Opening Endoscopic, Diagnostic (ICD-10-PCS; 2019-11-29)
PROC: 0DB48ZX Excision of Esophagogastric Junction, Via Natural or Artificial Opening Endoscopic, Diagnostic (ICD-10-PCS; principal; 2019-11-29 08:45)
DX: K21.9 Gastro-esophageal reflux disease without esophagitis (principal); K30 Functional dyspepsia; J44.9 Chronic obstructive pulmonary disease, unspecified; I10 Essential (primary) hypertension; I48.91 Unspecified atrial fibrillation; Z87.891 Personal history of nicotine dependence; G47.30 Sleep apnea, unspecified
CPT/HCPCS: 43239; 87081; J7120

== ENCOUNTER 2020-01-14 08:59 | Outpatient (CLI) | payer MEDICARE, MEDICAID ==
--- NOTE | 2020-01-14 10:59 | SLEEP CARE CONSULTATION ---
Information from patient questionnaire entered by Samira Dunham. I have reviewed and concur with the information entered by Samira Dunham. This document represents the service I personally performed and the decisions made by me, Tanner Rodriguez MD, [facility]. History of Present Illness Service Date and Time: 01/14/2020 0859 Previous diagnosis: Severe, Obstructive Sleep Apnea-Hypopnea Syndrome AHI: 46.6 (in 2010) Reason for follow up: other (5 month ) Equipment type: CPAP Equipment obtained from: [employer] Mask style: Full face Mask brand: Respironics Prior sleep studies: Yes Year and Where: 2010 - [facility] Sleep Type of Sleep Study: Polysomnography HPI additional information: HPI: Mr. Aguiar returned today to follow up on the nasal CPAP therapy. He was diagnosed to have severe obstructive sleep apnea-hypopnea syndrome. The patient wears a Respironics DreamWear full face mask. He reports using the device nightly but not all through the night. The compliance report shows usage in 68 nights out of the past 90 nights, average 3.7 hours a night. The > 4 hour compliance rate for the past 180 days is 35%. He thinks the pressure of 7 cmH2O is comfortable. He complained of no particular problem with the device such as soreness on the face, dry nose, epistaxis, nasal congestion or headache. He continues to complains of insomnia. His [place] Sleepiness Scale score is 10 (normal). His psychiatrist requests repeat sleep study before adjusting his medications. The residual AHI and air leak parameters are not reported by his machine. His bedtime is 11 pm midnight and his wakeup time is 8 am. He naps 1 2 hours a day. CPAP Compliance Data - Data Reviewed with Patient Average duration of nightly device use: 3.7 Compliance rate %: 35.6 (90 days) Current pressure setting (cmH2O): 7 Humidity settin Heated hose settin Average residual AHI: 2.0 Subjective Missed days of use due to: reports: other (not sure) Patient concerns: reports: aerophagia, mask discomfort, air blowing in eyes, mask leak noise, condensation in mask/hose, nasal congestion, dry mouth, nose, throat, other (snore while using device) Initial [place] Sleepiness Scale score: 17 (in 2010) Current [place] Sleepiness Scale score: 10 Allergies and Home Medications Drug allergies reviewed: Yes Home medication list reviewed: Yes Review of Systems Review of systems same as previous: Yes Physical Exam Height: 5 ft 6 in Weight: 233 lb Weight change since last visit: -10 Body Mass Index: 37.5 BMI Classification: Obese Impression and Plan IMPRESSION: 1. Obstructive Sleep Apnea-Hypopnea Syndrome, severe (AHI was 46.6), with the patient having [id number] compliance. He complains of insomnia which could be due to partially treated obstructive sleep apnea-hypopnea. He is comfortable with the treatment but complains of claustrophobia. I recommend switching the Respironics DreamWear full face mask to Respironics DreamWear nasal cushion mask (he says that he can breathe fine through his nose). Since it has been almost 10 years, I will repeat the in-laboratory polysomnography and possibly manual CPAP/BiPAP titration study as well. PLAN: 1. Continue to use CPAP at 7 cmH2O. 2. Try a Respironics DreamWear nasal cushion mask 3. Repeat in-laboratory polysomnography without CPAP. 4. Return for a follow up after the sleep study. Visit Type: In Office Time Spent with Patient (minutes): 15 Provider Statement: I spent 100% of the Face to Face Visit with the patient with greater than 50% spent counseling the patient and coordination of care.
== END 2020-01-14 09:00 | disposition home or self-care (01) ==
LOC: SC 08:59
PROVIDERS: ATTEND Internal Medicine Pulmonary Disease
DX: G47.33 Obstructive sleep apnea (adult) (pediatric) (principal); E66.9 Obesity, unspecified; Z68.37 Body mass index [BMI] 37.0-37.9, adult
CPT/HCPCS: 99213; G0463; 99212

== ENCOUNTER 2020-02-09 19:16 | Outpatient (CLI) | payer MEDICARE, MEDICAID | END 2020-02-09 19:17 | disposition home or self-care (01) | LOC: SC 19:16 | PROVIDERS: ATTEND Internal Medicine Pulmonary Disease | DX: G47.33 Obstructive sleep apnea (adult) (pediatric) (principal) | CPT/HCPCS: 95810 ==

== ENCOUNTER 2020-02-18 09:07 | Outpatient (CLI) | payer MEDICARE, MEDICAID ==
--- NOTE | 2020-02-18 09:37 | SLEEP CARE CONSULTATION ---
Information from patient questionnaire entered by Samira Dunham. I have reviewed and concur with the information entered by Samira Dunham. This document represents the service I personally performed and the decisions made by me, Tanner Rodriguez MD, [facility]. History of Present Illness Service Date and Time: 02/18/2020906 Initial [place] Sleepiness Scale score: 17 (in 2010) Current [place] Sleepiness Scale score: 2 Additional HPI information: HPI: Mr. Aguiar returns for a follow up of the sleep study he had on 02/09/2020. The polysomnography showed that the patient had normal sleep efficiency. The sleep architecture was relatively normal as well considering the first night effect. Respiratory monitoring showed no significant sleep disordered breathing (AHI = 0.3) or hypoxia (ivanna oxygen saturation of 90%). The patient slept mostly in non-supine positions (supine AHI = 0.0; non-supine = 0.33). Snore was light to loud in intensity. There was no significant periodic leg movement of sleep. Cardiac rhythm was normal sinus rhythm without significant arrhythmia. No abnormal behavior (parasomnia) observed during the night. The patient was informed of these findings. I explained to him that he no longer has obstructive sleep apnea-hypopnea. He confirmed that he has lost weight since his last sleep study a decade ago. Sleep Study - Results Type of Sleep Study: Polysomnography Prior sleep studies: Yes Year and Where: 2010 - [facility] Sleep Allergies and Home Medications Drug allergies reviewed: Yes Home medication list reviewed: Yes Review of Systems Review of systems same as previous: Yes Physical Exam Height: 5 ft 6 in Weight: 233 lb Body Mass Index: 37.5 BMI Classification: Obese Impression and Plan IMPRESSION: 1. Obstructive Sleep Apnea-Hypopnea Syndrome, resolved with weight loss. The patient also confirms that he does not sleep on his back at home. He will try to lose more weight. He will discontinue the positive airway pressure therapy. PLAN: 1. Discontinue the positive airway pressure therapy. 2. Avoid weight regain. 4. Return for a follow up on as needed basis. Follow up with Sleep Care in: as needed Visit Type: In Office Time Spent with Patient (minutes): 15 Provider Statement: I spent 100% of the Face to Face Visit with the patient with greater than 50% spent counseling the patient and coordination of care.
== END 2020-02-18 09:08 | disposition home or self-care (01) ==
LOC: SC 09:07
PROVIDERS: ATTEND Internal Medicine Pulmonary Disease
DX: G47.33 Obstructive sleep apnea (adult) (pediatric) (principal); E66.9 Obesity, unspecified; Z68.37 Body mass index [BMI] 37.0-37.9, adult
CPT/HCPCS: 99213; G0463; 99212

== ENCOUNTER 2020-07-06 08:00 | Outpatient (CLI) | payer MEDICARE, MEDICAID ==
[2020-07-06 17:57] LABS: BASOPHILS % (AUTO) 0.2 %; EOSINOPHILS # (AUTO) 0.1 10^3/uL (0.0-0.7); EOSINOPHILS % (AUTO) 0.9 %; HCT - HEMATOCRIT 40.4 % (42.0-52.0); HGB - HEMOGLOBIN 14.2 g/dL (14.0-18.0); LYMPHOCYTES # (AUTO) 1.2 10^3/uL (1.5-3.5); LYMPHOCYTES % (AUTO) 13.8 %; MEAN CORPUSCULAR HEMOGLOBIN 31.8 pg (27.0-31.0); MEAN CORPUSCULAR HGB CONC 35.1 g/dL (32.0-36.0); MEAN CORPUSCULAR VOLUME 90.6 fL (80.0-94.0); MEAN PLATELET VOLUME 9.4 fL (7.4-11.4); MONOCYTES # (AUTO) 0.5 10^3/uL (0.0-1.0); MONOCYTES % (AUTO) 6.1 %; NEUTROPHILS % (AUTO) 78.6 %; PLT - PLATELET COUNT 214 10^3/uL (130-450); RED BLOOD COUNT 4.46 10^6/uL (4.70-6.10); RED CELL DISTRIBUTION WIDTH 14.4 % (12.0-15.0); WHITE BLOOD COUNT 8.9 x10^3/uL (4.8-10.8)
[2020-07-06 18:17] LABS: ALBUMIN 4.3 g/dL (3.2-5.5); ALBUMIN/GLOBULIN RATIO 1.5 (1.0-2.2); ALKALINE PHOSPHATASE 77 IU/L (42-121); ALT ALANINE AMINOTRANSFERASE 43 IU/L (10-60); AST ASPARTATE AMINOTRANSFERASE 38 IU/L (10-42); BILIRUBIN,TOTAL 0.4 mg/dL (0.2-1.0); BUN - BLOOD UREA NITROGEN 14 mg/dL (6-20); CALCIUM 9.2 mg/dL (8.5-10.3); CARBON DIOXIDE - CO2 25 mmol/L (21-32); CHLORIDE 95 mmol/L (101-111); CHOL/HDL RATIO 3.5 (<5.0); CHOLESTEROL 177 mg/dL; CREATININE 0.9 mg/dL (0.6-1.2); GFR - MDRD 88 (>89); GLUCOSE 154 mg/dL (70-100); HDL CHOLESTEROL 50 mg/dL; LDL CHOLESTEROL,CALCULATED 91 mg/dL; LDL/HDL RATIO 1.8 (<3.6); POTASSIUM 3.9 mmol/L (3.5-5.0); SODIUM 133 mmol/L (135-145); TOTAL PROTEIN 7.2 g/dL (6.7-8.2); TRIGLYCERIDES 179 mg/dL; VLDL CHOLESTEROL 36 mg/dL
== END 2020-07-06 23:59 | disposition home or self-care (01) ==
LOC: LAB.WCP 08:00
PROVIDERS: ATTEND Family Medicine
DX: F25.0 Schizoaffective disorder, bipolar type (principal); F31.61 Bipolar disorder, current episode mixed, mild; E78.5 Hyperlipidemia, unspecified; R60.0 Localized edema
CPT/HCPCS: 36415; 80053; 80061; 83721; 85025

== ENCOUNTER 2020-07-15 08:58 | Outpatient (CLI) | payer MEDICARE, MEDICAID ==
--- NOTE | 2020-07-15 09:43 | SLEEP CARE CONSULTATION ---
Information from patient questionnaire entered by Samira Dunham. I have reviewed and concur with the information entered by Samira Dunham. This document represents the service I personally performed and the decisions made by , Yuly Osei ARNP. History of Present Illness Service Date and Time: 07/15/2020 0858 Previous diagnosis: Severe, Obstructive Sleep Apnea-Hypopnea Syndrome AHI: 46.6 (in 2010)(0.3 in 2019) Reason for follow up: other (4 month positional therapy) Accompanied by: caregiver Prior sleep studies: Yes Year and Where: 2019 and [address] [facility] Sleep Type of Sleep Study: Polysomnography HPI additional information: TITA CABALLERO was diagnosed to have severe, AHI 46.6 in 2010, obstructive sleep apnea-hypopnea syndrome and AHI 0.3 in 2019 and returned today for a 4 month follow-up. He is not currently on a CPAP machine since his last sleep study. He returns today to discuss increasing sleepiness during the day and some snoring. He is getting more sleepy in the early evening and sometimes during the day (especially when reading). He is trying to stay active with a foot pedal, walking, and weights. He thinks he is losing weight. He makes sure to sleep on his side because he snores more on his back. His caregiver states he is not snoring too much. This has worsened since he stopped the CPAP machine and his Seroquel. He would like to see if he needs to go back on CPAP therapy. He is taking new medication oxycarbazepine and Vraylar for bipolar 1 and anxiety. He is taking clonazepam 2 mg twice a day, but his PCP is going to try to wean him off of this after the sleep study. He is concerned that he may need to restart CPAP therapy. Subjective Initial [place] Sleepiness Scale score: 17 (in 2010) Current [place] Sleepiness Scale score: 2 Allergies and Home Medications Home medication list reviewed: Yes (oxycarbazepine and Vraylar) Review of Systems Review of systems same as previous: Yes (no changes) Physical Exam Heart Rate: 76 O2 Saturation: 95 Height: 5 ft 6 in Weight: 244 lb Weight change since last visit: 11 gain Body Mass Index: 39.4 BMI Classification: Obese Impression and Plan 1. Suspected Obstructive Sleep Apnea-Hypopnea Syndrome, as previously diagnosed and as suggested by a history of irregular snoring, transitory morning headaches, some cognitive impairment, and excessive daytime sleepiness. He has regained about 11 pounds since his last visit despite his activities but he states he has not been eating very healthy. I recommend proceeding to polysomnography to confirm the diagnosis and to assess severity. I obtained agreement to proceed. The pathophysiology of obstructive sleep apnea-hypopnea syndrome was discussed with the patient and health risks of cardiovascular and cerebrovascular disease if not treated. 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 Patient agreed to plan. * Schedule polysomnography/HST. * Avoid long distance driving or driving when feeling sleepy. * Avoid alcohol, sedative and muscle relaxant around bedtime. * Attempt to lose weight. * Review instructions provided by trained office staff on how to prepare for the sleep study. * Return for follow-up after sleep study completed. Counseling Topics: Weight loss health impact Visit Type: In Office Other Participants: Caregiver Time Spent with Patient (minutes): 23 Provider Statement: I spent 100% of the Face to Face Visit with the patient with greater than 50% spent counseling the patient and coordination of care.
== END 2020-07-15 08:59 | disposition home or self-care (01) ==
LOC: SC 08:58
PROVIDERS: ATTEND Nurse Practitioner Family
DX: G47.33 Obstructive sleep apnea (adult) (pediatric) (principal); E66.9 Obesity, unspecified; Z68.39 Body mass index [BMI] 39.0-39.9, adult
CPT/HCPCS: 99213; G0463; 99212

== ENCOUNTER 2020-07-20 08:56 | Outpatient (CLI) | payer MEDICARE, MEDICAID | END 2020-07-20 08:57 | disposition home or self-care (01) | LOC: SC 08:56 | PROVIDERS: ATTEND Nurse Practitioner Family | DX: G47.10 Hypersomnia, unspecified (principal); R51.9 Headache, unspecified; R06.83 Snoring; R41.89 Other symptoms and signs involving cognitive functions and awareness; E66.9 Obesity, unspecified; Z68.39 Body mass index [BMI] 39.0-39.9, adult | CPT/HCPCS: G0399 ×2; 95806 ==

== ENCOUNTER 2020-07-31 11:44 | Outpatient (CLI) | payer MEDICARE, MEDICAID ==
--- NOTE | 2020-07-31 12:06 | SLEEP CARE CONSULTATION ---
Information from patient questionnaire entered by Samira Dunham. I have reviewed and concur with the information entered by Samira Dunham. This document represents the service I personally performed and the decisions made by , Yuly Osei ARNP. History of Present Illness Service Date and Time: 07/31/2020 1144 Initial [place] Sleepiness Scale score: 17 (in 2010) Current [place] Sleepiness Scale score: 3 Additional HPI information: TITA CABALLERO returns for follow up and results of the recently performed home sleep study. The patient was informed of the following findings: no significant sleep disordered breathing with an average AHI of 0.8 and ivanna oxygen saturation of 90%. I explained the pathophysiology behind obstructive sleep apnea. Patient does not have sleep apnea and was advised how weight gain could increase the risk of developing sleep apnea in the future. I strongly encouraged the patient to lose weight. Patient has moderate to loud snoring. Snoring can be reduced by weight loss. Weight loss is best achieved with diet consult. Patient instructed to contact PCP for referral. Snoring can also be treated with an oral appliance from a dentist. Advised to check insurance coverage. In addition, an ENT evaluation can be do to see if other treatment is indicated. Patient counseled not drink alcohol less than 4 hours before bedtime as it can increase snoring and apnea. Patient denies drowsy driving. Sleep Study - Results Type of Sleep Study: Home sleep study Prior sleep studies: Yes (Polysomnography) Year and Where: 2010 - [facility] Sleep Polysomnography/Home Sleep Study results: Physician Impression: The quality of the study is good. The length of the study is adequate (> 240 minutes). Please also see the tabulated and graphic data. 1. No significant sleep disordered breathing, with an AHI of 0.8/hr and ivanna SaO2 of 90%. During the study, the patient had 1 apneas (1 obstructive, 0 central, 0 mixed) and 3 hypopneas. The longest episode lasted 31.5 seconds. The patient did not sleep supine during this study (supine AHI was 0.0 and non-supine, 0.81). Allergies and Home Medications Home medication list reviewed: Yes (no new meds) Review of Systems Review of systems same as previous: Yes (no changes) Physical Exam Heart Rate: 76 O2 Saturation: 98 Height: 5 ft 6 in Weight: 237 lb Body Mass Index: 38.2 BMI Classification: Obese Impression and Plan Snoring but no significant sleep disordered breathing. Patient does not have sleep disordered breathing that needs treatment. Patient advised that often weight loss will reduce snoring as well as apnea risk. An oral appliance can also be used for snoring. This would require a dental consultation. Patient cautioned not to use other online appliances as can cause bite issues. A list [facility] accredited [facility] and one local dentist who makes oral appliances is in the office if needed. Patient is advised to check if insurance will cover. An ENT consult can also be helpful to determine if any other treatment is an option. * Attempt to lose weight * Avoid alcohol consumption near bedtime * Return in as needed. Counseling Topics: Weight loss health impact Visit Type: In Office Time Spent with Patient (minutes): 12 Provider Statement: I spent 100% of the Face to Face Visit with the patient with greater than 50% spent counseling the patient and coordination of care.
== END 2020-07-31 11:45 | disposition home or self-care (01) ==
LOC: SC 11:44
PROVIDERS: ATTEND Nurse Practitioner Family
DX: G47.33 Obstructive sleep apnea (adult) (pediatric) (principal); E66.9 Obesity, unspecified; Z68.38 Body mass index [BMI] 38.0-38.9, adult
CPT/HCPCS: 99212; G0463

== ENCOUNTER 2020-08-18 09:46 | Day surgery (SDC) | payer MEDICARE, MEDICAID ==
[2020-08-18] MEDS ORDERED: LACTATED RINGERS 1,000 ML IV ONE ×2 (10:32→13:27)
[2020-08-18] MEDS ORDERED: METOCLOPRAMIDE 10 MG/2 ML VIAL IVP PRN (11:41)
[2020-08-18] MEDS ORDERED: fentaNYL 100 MCG/2 ML VIAL IVP PRN (11:41)
[2020-08-18] MEDS ORDERED: MORPHINE 2 MG/ML CARPUJECT IVP PRN (11:41)
[2020-08-18] MEDS ORDERED: ATROPINE ABBOJECT 1 MG/10 ML SYRINGE IVP PRN (11:41)
[2020-08-18] MEDS ORDERED: ONDANSETRON 4 MG/2 ML VIAL IVP PRN (11:41)
[2020-08-18] MEDS ORDERED: HYDROmorphone 0.5 MG/0.5 ML SYRINGE IVP PRN (11:41)
[2020-08-18] MEDS ORDERED: NALOXONE 0.4 MG/ML VIAL IVP PRN (11:41)
[2020-08-18] MEDS ORDERED: ePHEDrine 50 MG/ML VIAL IVP PRN (11:41)
--- NOTE | 2020-08-18 11:41 | ANESTHESIA ---
Pre-Anesthesia VS, & Labs - Diagnosis screening, fecal incontinence - Procedure colonoscopy Height: 5 ft 7 in Weight (kg): 111 kg Body Mass Index: 38.3 BMI Classification: Obese - NPO >8 hours - Lab Results Lab results reviewed: Yes Home Medications and Allergies Albuterol Sulf [Ventolin Hfa Inhaler] 2 puffs PO DAILY PRN 02/16/17 Fluticasone [Flonase] 2 spray ROSSY DAILY 02/16/17 Pramipexole [Mirapex] 0.5 mg PO DAILY PM 02/16/17 Propranolol ER [Inderal LA] 80 mg PO BID 02/16/17 Furosemide 40 mg ORAL DAILY 12/23/18 Atorvastatin [Lipitor] 1 tab ORAL DAILY 11/29/19 Famotidine 20 mg ORAL DAILY 11/29/19 OXcarbazepine [Oxcarbazepine] 1 tab ORAL BID 11/29/19 Allergies/Adverse Reactions: Allergies Allergy/AdvReac Type Severity Reaction Status Date / Time codeine Allergy Unknown Verified 07/03/19 23:55 hydrocodone [From Vicodin] AdvReac Emesis Verified 07/03/19 23:55 Anes History & Medical History - Anesthetic History Anesthesia Complications: reports: No previous complications Family history of Anesthesia Complications: Denies Family history of Malignant Hyperthermia: Denies - Medical History Cardiovascular: reports: Hypertension, High cholesterol, Atrial fibrillation Pulmonary: reports: COPD Gastrointestinal: reports: GERD Urinary: reports: None Neuro: reports: None Musculoskeletal: reports: Osteoarthritis, Fibromyalgia, Chronic back pain Endocrine/Autoimmune: reports: None Blood Disorders: reports: None Skin: reports: None Smoking Status: Former smoker - Surgical History Orthopedic: reports: Arthroscopic surgery, Spine surgery, Other Exam General: Alert, Oriented x3, Cooperative Dental: WNL Mouth Openin Fingerbreadth Neck Mobility: Normal Mallampati classification: III Thyromental Distance: 4-6 cm Respiratory: Lungs clear, Normal breath sounds, No respiratory distress Cardiovascular: Regular rate Neurological: Normal speech Mental/Cognitive Status: Alert/Oriented X3, Normal for patient Cognitive Status: Within normal limits Plan Anesthesia Type: Total IV Consent for Procedure(s) Verified and Reviewed: Yes Code Status: Attempt Resuscitation ASA classification: 2-Mild systemic disease Is this case an emergency?: No
[2020-08-18] MEDS ORDERED: LACTATED RINGERS 1,000 ML IV SCH (12:00)
[2020-08-18] MEDS ORDERED: MIDAZOLAM 2 MG/2 ML VIAL ONE (12:22)
[2020-08-18] MEDS ORDERED: fentaNYL 100 MCG/2 ML VIAL ONE (12:22)
[2020-08-18] MEDS ORDERED: PROPOFOL 200 MG/20 ML VIAL IVP ONE ×2 (12:22→13:12)
[2020-08-18 14:03] VITALS: BP 118/70
--- NOTE | 2020-08-18 17:02 | ANESTHESIA POST OP EVALUATION ---
Anesthesia Post Eval - Post Anesthesia Eval Vitals: Last Vital Signs Temp 36.4 C L 08/18/20 14:00 Pulse 64 08/18/20 14:00 Resp 18 08/18/20 14:00 BP 118/70 08/18/20 14:00 Pulse Ox 98 08/18/20 14:00 CV Function Including HR & BP: Stable Pain Control: Satisfactory Nausea & Vomiting: Negative Mental Status: Baseline Respiratory Status: Airway Patent Hydration Status: Satisfactory Anesthesia Complications: None
== END 2020-08-18 09:47 | disposition home or self-care (01) ==
LOC: SDS 09:46
PROVIDERS: ATTEND Surgery
PROC: 0DBE8ZX Excision of Large Intestine, Via Natural or Artificial Opening Endoscopic, Diagnostic (ICD-10-PCS; 2020-08-18)
PROC: 0DBK8ZZ Excision of Ascending Colon, Via Natural or Artificial Opening Endoscopic (ICD-10-PCS; principal; 2020-08-18 11:30)
DX: D12.2 Benign neoplasm of ascending colon (principal); D12.3 Benign neoplasm of transverse colon; K63.5 Polyp of colon; K64.8 Other hemorrhoids; K63.89 Other specified diseases of intestine; Z79.899 Other long term (current) drug therapy; I10 Essential (primary) hypertension; E78.00 Pure hypercholesterolemia, unspecified; J44.9 Chronic obstructive pulmonary disease, unspecified; M79.7 Fibromyalgia; Z87.891 Personal history of nicotine dependence
CPT/HCPCS: 45380; 45385; J7120

== ENCOUNTER 2020-09-15 08:00 | Outpatient (CLI) | payer MEDICARE, MEDICAID ==
[2020-09-15 13:03] LABS: BASOPHILS % (AUTO) 0.3 %; EOSINOPHILS # (AUTO) 0.1 10^3/uL (0.0-0.7); EOSINOPHILS % (AUTO) 1.5 %; HCT - HEMATOCRIT 42.4 % (42.0-52.0); HGB - HEMOGLOBIN 14.5 g/dL (14.0-18.0); LYMPHOCYTES % (AUTO) 14.2 %; MEAN CORPUSCULAR HEMOGLOBIN 32.2 pg (27.0-31.0); MEAN CORPUSCULAR HGB CONC 34.2 g/dL (32.0-36.0); MEAN CORPUSCULAR VOLUME 94.2 fL (80.0-94.0); MEAN PLATELET VOLUME 9.4 fL (7.4-11.4); MONOCYTES # (AUTO) 0.5 10^3/uL (0.0-1.0); MONOCYTES % (AUTO) 7.5 %; NEUTROPHILS # (AUTO) 5.5 10^3/uL (1.5-6.6); NEUTROPHILS % (AUTO) 76.2 %; PLT - PLATELET COUNT 225 10^3/uL (130-450); RED CELL DISTRIBUTION WIDTH 12.7 % (12.0-15.0); WHITE BLOOD COUNT 7.2 x10^3/uL (4.8-10.8)
[2020-09-15 13:07] LABS: BILIRUBIN,URINE NEGATIVE (NEGATIVE); GLUCOSE, URINE (UA) NEGATIVE (NEGATIVE); KETONES,URINE (UA) NEGATIVE (NEGATIVE); LEUKOCYTE ESTERASE, URINE NEGATIVE (NEGATIVE); NITRITE,URINE NEGATIVE (NEGATIVE); OCCULT BLOOD,URINE NEGATIVE (NEGATIVE); PROTEIN,URINE NEGATIVE (NEGATIVE); UROBILINOGEN,URINE 0.2 (NORMAL) E.U./dL (NORMAL)
[2020-09-15 13:09] LABS: CLARITY,URINE CLEAR (CLEAR)
[2020-09-15 13:11] LABS: RBC,URINE 0-5 /HPF (0-5); SQUAMOUS EPITHELIAL CELL,UR FEW Squamous (<= Few); WBC,URINE 0-3 /HPF (0-3)
[2020-09-15 13:12] LABS: BACTERIA,URINE None Seen /HPF (None Seen)
[2020-09-15 14:16] LABS: ALBUMIN 4.7 g/dL (3.2-5.5); ALBUMIN/GLOBULIN RATIO 1.6 (1.0-2.2); BILIRUBIN,TOTAL 0.7 mg/dL (0.2-1.0); CALCIUM 9.4 mg/dL (8.5-10.3); CREATININE 0.9 mg/dL (0.6-1.2); POTASSIUM 3.8 mmol/L (3.5-5.0); TOTAL PROTEIN 7.7 g/dL (6.7-8.2)
== END 2020-09-15 23:59 | disposition home or self-care (01) ==
LOC: LAB.WCP 08:00
PROVIDERS: ATTEND Family Medicine
DX: M17.11 Unilateral primary osteoarthritis, right knee (principal); E87.1 Hypo-osmolality and hyponatremia
CPT/HCPCS: 36415; 80053; 81001; 82728; 83540; 83930; 83935; 84300; 84466; 85025; 85610; 87086

== ENCOUNTER → 2020-09-16 | Outpatient (CLI) | payer MEDICARE, MEDICAID ==
[2020-09-16 17:49] LABS: INR 1.1 (0.8-1.2); PT - PROTHROMBIN TIME 11.9 secs (9.9-12.6)
== END ==
LOC: LAB 08:00
PROVIDERS: ATTEND Family Medicine
DX: M17.11 Unilateral primary osteoarthritis, right knee (principal)
CPT/HCPCS: 36415; 85610

== ENCOUNTER 2020-10-06 18:02 | Emergency (ER) | payer MEDICARE, MEDICAID ==
--- NOTE | 2020-10-06 19:03 | ED Physician Documentation ---
History of Present Illness - Stated complaint Stated Complaint: POST OP COMPLICATIONS - Chief complaint Chief Complaint: Ext Problem - History obtained from History obtained from: Patient, Family - History of Present Illness Timing: How many weeks ago (3) - Additonal information Additional information: 55-year-old male has had a right knee total replacement done on 09/22/2020. He has had over the past week some increased redness and swelling to the lower extremity and he has been put on Keflex about 3 days ago. He has had some drainage from the lower part of his wound. He was asked by his surgeons come to the emergency department for evaluation of DVT. Review of Systems Constitutional: reports: Chills. denies: Fever Eyes: denies: Decreased vision Ears: denies: Ear pain Nose: denies: Congestion Throat: denies: Sore throat Cardiac: denies: Chest pain / pressure, Palpitations Respiratory: denies: Dyspnea, Cough GI: denies: Abdominal Pain, Nausea, Vomiting : denies: Dysuria, Frequency Musculoskeletal: reports: Extremity pain, Extremity swelling. denies: Neck pain, Back pain Neurologic: denies: Generalized weakness, Focal weakness, Numbness PD PAST MEDICAL HISTORY - Past Medical History Past Medical History: Yes Cardiovascular: Hypertension, High cholesterol, Atrial fibrillation Respiratory: COPD Neuro: None Endocrine/Autoimmune: None GI: GERD : None HEENT: None Psych: Depression, Anxiety, Bipolar disorder Musculoskeletal: Osteoarthritis, Fibromyalgia, Chronic back pain Derm: None - Past Surgical History Past Surgical History: Yes Ortho: Knee replacement, Arthroscopic surgery, Spine surgery, Other - Present Medications Home Medications: Ambulatory Orders Medication Instructions Recorded Confirmed Albuterol Sulf [Ventolin Hfa 2 puffs PO DAILY PRN 02/16/17 11/29/19 Inhaler] Fluticasone [Flonase] 2 spray ROSSY DAILY 02/16/17 11/29/19 Pramipexole [Mirapex] 0.5 mg PO DAILY PM 02/16/17 11/29/19 Propranolol ER [Inderal LA] 80 mg PO BID 02/16/17 11/29/19 Cyclobenzaprine [Flexeril] 10 mg PO TID PRN #20 tablet 09/08/18 11/29/19 Furosemide 40 mg ORAL DAILY 12/23/18 11/29/19 Atorvastatin [Lipitor] 1 tab ORAL DAILY 11/29/19 11/29/19 Famotidine 20 mg ORAL DAILY 11/29/19 11/29/19 OXcarbazepine [Oxcarbazepine] 1 tab ORAL BID 11/29/19 11/29/19 - Allergies Allergies/Adverse Reactions: Allergies Allergy/AdvReac Type Severity Reaction Status Date / Time codeine Allergy Unknown Verified 10/06/20 18:11 diphenhydramine Allergy Respiratory Verified 10/06/20 18:11 [From Benadryl] hydrocodone [From Vicodin] AdvReac Emesis Verified 10/06/20 18:11 - Social History Does the pt smoke?: No Smoking Status: Never smoker Does the pt drink ETOH?: No Does the pt have substance abuse?: Yes Substance Use and Type: CBD oil / Products - Immunizations Immunizations are current?: Yes - POLST Patient has POLST: No PD ED PE NORMAL - Vitals Vital signs reviewed: Yes (Normal) - General General: Alert and oriented X 3, No acute distress, Well developed/nourished - HEENT HEENT: Atraumatic, PERRL, EOMI - Respiratory Respiratory: No respiratory distress - Derm Derm: Normal color, Warm and dry - Extremities Extremities: Other (There is edema and erythema to the right lower extremity this starts just above the knee below a tattoo on the anterior thigh. The erythema is blanching and there is no lymphangitic streaking. There is some mild tenderness. Distal neurovascular components are intact) - Neuro Neuro: Alert and oriented X 3, monkey keeper 2-12 intact, No motor deficit, No sensory deficit, Normal speech Eye Opening: Spontaneous Motor: Obeys Commands Verbal: Oriented GCS Score: 15 - Psych Psych: Normal mood, Normal affect Results - Vitals Vitals: Vital Signs - 24 hr 10/06/20 10/06/20 18:06 20:10 Temperature 36.4 C L Heart Rate 69 67 Respiratory 16 14 Rate Blood Pressure 121/61 122/65 O2 Saturation 100 100 Oxygen O2 Source Room air - Labs Labs: Microbiology 10/06/20 20:15 Wound Culture - Preliminary Knee - Right - Rads (name of study) duplex R Radiology: Prelim report reviewed (Impression: No evidence of deep venous thrombosis, right lower extremity. Right lateral subcutaneous fluid collection, probable hematoma or seroma.), EMP read indepedently, See rad report PD MEDICAL DECISION MAKING - ED course Complexity details: reviewed results, re-evaluated patient, considered differential, d/w patient, d/w family ED course: 55-year-old male who has had a total knee replacement has some swelling and redness to the right lower extremity that has been present for 1 week. The patient indicates that the redness is undulated and he has been started on some antibiotic. Today we ran a duplex ultrasound on the lower extremity and found no evidence of deep vein thrombosis. There is a fluid collection to the lateral aspect of the knee subcutaneously consistent with a seroma or hematoma. I consulted the patient's surgeon Dr. Douglass And he recommended we administer 2 g of Ancef IM and he will follow with the patient in 2 days time as previously arranged. I did not feel that the patient had aggressive cellulitis. I did ask him to return should he have progression of symptoms. Departure - Departure Disposition: 01 Home, Self Care Clinical Impression: Cellulitis Qualifiers: Site of cellulitis: extremity Site of cellulitis of extremity: lower extremity Laterality: right Qualified Code(s): L03.115 - Cellulitis of right lower limb Condition: Stable Instructions: ED Infec Skin Cellulitis Follow-Up: Jaren Douglass MD [Physician No Access] - Comments: Continue the cephalixen as prescribed and follow up with Dr. Douglass as planned in 2 days time. If you have increasing redness swelling and pain return for failed outpatient management of cellulitis. Discharge Date/Time: 10/06/20 20:27
--- NOTE | 2020-10-06 19:34 | Ultrasound Report ---
PROCEDURE: Duplex Ext Veins Right INDICATIONS: swelling redness post op TECHNIQUE: Real-time imaging, as well as color and pulse Doppler interrogation, were performed of the lower extr emity deep veins from the inguinal ligament to the popliteal fossa. COMPARISON: None. FINDINGS: The deep veins are normally compressible, and free of intraluminal thrombus. Color and pu lse Doppler demonstrate normal phasic intraluminal flow. There is normal augmentation response to di stal compression maneuver. Complex fluid collection in subcutaneous tissues lateral to the knee measures 2.8 x 1.1 x 2.0 cm IMPRESSION: No evidence of deep venous thrombosis, right lower extremity. Right lateral subcutaneous fluid collection , probable hematoma or seroma Reviewed by: Mariano Bello MD on 10/06/2020 6:33 PM ROSINA Approved by: Mariano Bello MD on 10/06/2020 6:33 PM AKRUBEN Station ID: [id number]
[2020-10-06] MEDS ORDERED: ceFAZolin 1 GM VIAL IM STA (20:04)
[2020-10-06 20:24] VITALS: BP 122/65
== END 2020-10-06 20:27 | disposition home or self-care (01) ==
LOC: ED 18:02
DX: L03.115 Cellulitis of right lower limb (principal); Z96.651 Presence of right artificial knee joint; I10 Essential (primary) hypertension
CPT/HCPCS: 87070; 87205; 96374; 99284

== ENCOUNTER 2021-01-01 14:25 | Outpatient (CLI) | payer MEDICARE, MEDICAID ==
[2021-01-01 18:41] LABS: BASOPHILS % (AUTO) 0.3 %; EOSINOPHILS # (AUTO) 0.1 10^3/uL (0.0-0.7); HCT - HEMATOCRIT 38.7 % (42.0-52.0); HGB - HEMOGLOBIN 13.6 g/dL (14.0-18.0); LYMPHOCYTES # (AUTO) 1.2 10^3/uL (1.5-3.5); LYMPHOCYTES % (AUTO) 18.2 %; MEAN CORPUSCULAR HEMOGLOBIN 30.6 pg (27.0-31.0); MEAN CORPUSCULAR HGB CONC 35.1 g/dL (32.0-36.0); MEAN PLATELET VOLUME 9.6 fL (7.4-11.4); MONOCYTES # (AUTO) 0.6 10^3/uL (0.0-1.0); MONOCYTES % (AUTO) 8.9 %; NEUTROPHILS # (AUTO) 4.7 10^3/uL (1.5-6.6); NEUTROPHILS % (AUTO) 70.3 %; PLT - PLATELET COUNT 239 10^3/uL (130-450); RED BLOOD COUNT 4.45 10^6/uL (4.70-6.10); RED CELL DISTRIBUTION WIDTH 13.2 % (12.0-15.0); WHITE BLOOD COUNT 6.6 x10^3/uL (4.8-10.8)
[2021-01-01 20:21] LABS: ALBUMIN 4.4 g/dL (3.2-5.5); ALBUMIN/GLOBULIN RATIO 1.5 (1.0-2.2); ALKALINE PHOSPHATASE 80 IU/L (42-121); ALT ALANINE AMINOTRANSFERASE 30 IU/L (10-60); AST ASPARTATE AMINOTRANSFERASE 26 IU/L (10-42); BILIRUBIN,TOTAL 0.8 mg/dL (0.2-1.0); BUN - BLOOD UREA NITROGEN 10 mg/dL (6-20); CALCIUM 8.9 mg/dL (8.5-10.3); CARBON DIOXIDE - CO2 25 mmol/L (21-32); CHLORIDE 87 mmol/L (101-111); CHOL/HDL RATIO 3.6 (<5.0); CHOLESTEROL 193 mg/dL; CREATININE 0.8 mg/dL (0.6-1.2); GFR - MDRD 100 (>89); GLUCOSE 115 mg/dL (70-100); HDL CHOLESTEROL 53 mg/dL; LDL CHOLESTEROL,CALCULATED 102 mg/dL; LDL/HDL RATIO 1.9 (<3.6); POTASSIUM 3.8 mmol/L (3.5-5.0); SODIUM 122 mmol/L (135-145); TOTAL PROTEIN 7.3 g/dL (6.7-8.2); TRIGLYCERIDES 192 mg/dL; VLDL CHOLESTEROL 38 mg/dL
[2021-01-01 21:35] LABS: ESTIMATED AVERAGE GLUCOSE 100 mg/dL (70-100); HEMOGLOBIN A1c% 5.1 % (4.27-6.07)
== END 2021-01-01 23:59 | disposition home or self-care (01) ==
LOC: LAB.WCP 14:25
PROVIDERS: ATTEND Family Medicine
DX: R73.01 Impaired fasting glucose (principal); E78.5 Hyperlipidemia, unspecified; R60.0 Localized edema
CPT/HCPCS: 36415; 80053; 80061; 83036; 83721; 85025

== ENCOUNTER 2021-01-14 07:32 | Outpatient (CLI) | payer MEDICARE, MEDICAID ==
[~2021-01-14 07:32] MED LIST changes: +GADOBUTROL 15 MMOL/15 ML VIAL ONE; -LIDO GARGLE 30 ML BOTTLE ONE
--- NOTE | 2021-01-14 11:04 | MRI Report ---
PROCEDURE: MRI of the brain with and without contrast INDICATIONS: MIXED HEADACHE CONTRAST: IV CONTRAST: Gadavist ml: 10 TECHNIQUE: Noncontrast axial T1 spin echo, axial T2 fast spin echo, sagittal and axial FLAIR, emanuel l T2 fast spin echo, axial gradient echo, axial diffusion and ADC through the brain. After the admin istration of contrast, axial and coronal T1 spin echo with fat saturation through the brain. COMPARISON: CT brain 05/29/2019 FINDINGS: Image quality: Excellent. CSF spaces: Basal cisterns are patent. No extra-axial fluid collections. Ventricles are normal in size and shape. Brain: No midline shift. No intracranial bleeds or masses. No abnormal intracranial enhancement. There is cerebral volume loss for age. There is periventricular white matter chronic small vessel is chemic change. The brainstem appears normal. Diffusion-weighted images demonstrate no acute ischemi c insults. Normal intravascular flow voids are present. Skull and face: Calvarial marrow is normal in signal. Orbits appear normal. Sinuses: Sinuses and mastoids appear clear. IMPRESSION: Unremarkable MRI of the brain with and without contrast. Reviewed by: Mariano Bello MD on 01/14/2021 10:03 AM ROSINA Approved by: Mariano Bello MD on 01/14/2021 10:03 AM ROSINA Station ID: [id number]
== END 2021-01-14 07:33 | disposition home or self-care (01) ==
LOC: DI 07:32
PROVIDERS: ATTEND Family Medicine
DX: G44.89 Other headache syndrome (principal)
CPT/HCPCS: 70553; A9585

== ENCOUNTER 2021-01-25 10:59 | Outpatient (CLI) | payer MEDICARE, MEDICAID | END 2021-01-25 11:00 | disposition critical access hospital (66) | LOC: EMS 10:59 | DX: R07.9 Chest pain, unspecified (principal) | CPT/HCPCS: A0425; A0427 ==

== ENCOUNTER 2021-01-25 11:37 | Emergency (ER) | payer MEDICARE, MEDICAID ==
[2021-01-25 11:43] VITALS: BP 145/80
--- NOTE | 2021-01-25 12:00 | ED Physician Documentation ---
PD HPI CHEST PAIN - Stated complaint Stated Complaint: CHEST PX - Chief complaint Chief Complaint: Cardiac - History obtained from History obtained from: Patient, EMS - Additional information Additional information: Had severe chest pain in the sternal area last night. "sharp," lasting very brief, about 5 seconds. Radiates to L arm. Notes diaphoresis. Worse with activity and better with rest. Has hx HTN and preexisting RBBB. No hx CAD. Has GERD, but this does not feel similar. Review of Systems Ten Systems: 10 systems reviewed and negative Constitutional: reports: Reviewed and negative Nose: reports: Reviewed and negative Cardiac: reports: Chest pain / pressure. denies: Palpitations PD PAST MEDICAL HISTORY - Past Medical History Cardiovascular: Hypertension, High cholesterol, Atrial fibrillation Respiratory: COPD Neuro: None Endocrine/Autoimmune: None GI: GERD : None HEENT: None Psych: Depression, Anxiety, Bipolar disorder Musculoskeletal: Osteoarthritis, Fibromyalgia, Chronic back pain Derm: None - Past Surgical History Past Surgical History: Yes Ortho: Knee replacement, Arthroscopic surgery, Spine surgery, Other - Present Medications Home Medications: Ambulatory Orders Medication Instructions Recorded Confirmed Albuterol Sulf [Ventolin Hfa 2 puffs PO DAILY PRN 02/16/17 11/29/19 Inhaler] Fluticasone [Flonase] 2 spray ROSSY DAILY 02/16/17 11/29/19 Pramipexole [Mirapex] 0.5 mg PO DAILY PM 02/16/17 11/29/19 Propranolol ER [Inderal LA] 80 mg PO BID 02/16/17 11/29/19 Cyclobenzaprine [Flexeril] 10 mg PO TID PRN #20 tablet 09/08/18 11/29/19 Furosemide 40 mg ORAL DAILY 12/23/18 11/29/19 Atorvastatin [Lipitor] 1 tab ORAL DAILY 11/29/19 11/29/19 Famotidine 20 mg ORAL DAILY 11/29/19 11/29/19 OXcarbazepine [Oxcarbazepine] 1 tab ORAL BID 11/29/19 11/29/19 - Allergies Allergies/Adverse Reactions: Allergies Allergy/AdvReac Type Severity Reaction Status Date / Time codeine Allergy Unknown Verified 01/25/21 11:40 diphenhydramine Allergy Respiratory Verified 01/25/21 11:40 [From Benadryl] hydrocodone [From Vicodin] AdvReac Emesis Verified 01/25/21 11:40 - Social History Does the pt smoke?: No Smoking Status: Never smoker Does the pt drink ETOH?: No Does the pt have substance abuse?: Yes - Family History Family history: reports: Non contributory - Immunizations Immunizations are current?: Yes - POLST Patient has POLST: No PD ED PE NORMAL - Vitals Vital signs reviewed: Yes - General General: Alert and oriented X 3, No acute distress - HEENT HEENT: PERRL, EOMI - Neck Neck: Supple, no meningeal sign, No bony TTP - Cardiac Cardiac: RRR, No murmur - Respiratory Respiratory: No respiratory distress, Clear bilaterally - Abdomen Abdomen: Normal bowel sounds, Soft, Non tender - Back Back: No CVA TTP, No spinal TTP - Derm Derm: Normal color, Warm and dry - Extremities Extremities: No edema, No calf tenderness / cord - Neuro Neuro: Alert and oriented X 3, Normal speech - Psych Psych: Normal mood, Normal affect Results - Vitals Vitals: Vital Signs - 24 hr 01/25/21 11:40 Temperature 36.7 C Heart Rate 66 Respiratory 20 Rate Blood Pressure 145/80 H O2 Saturation 97 Oxygen O2 Source Room air - EKG (time done) 1145 Rate: Rate (enter#) (66) Rhythm: NSR [place]: Normal Intervals: Normal OR, RBBB QRS: Normal Ischemia: Normal ST segments Compare to prior EKG: Unchanged from prior EKG (No change from 07/05/19) Computer interpretation: Agree with computer - Labs Labs: Laboratory Tests 01/25/21 01/25/21 01/25/21 11:59 11:59 11:59 WBC 6.8 RBC 4.84 Hgb 14.5 Hct 41.8 L MCV 86.4 MCH 30.0 MCHC 34.7 RDW 13.1 Plt Count 197 MPV 8.8 Neut # (Auto) 5.0 Lymph # (Auto) 1.1 L [place] # (Auto) 0.5 Eos # (Auto) 0.1 Baso # (Auto) 0.0 Absolute Nucleated RBC 0.00 Nucleated RBC % 0.0 Sodium 127 L Potassium 3.9 Chloride 91 L Carbon Dioxide 26 Anion Gap 10.0 BUN 14 Creatinine 0.8 Estimated GFR (MDRD) 100 Glucose 97 Calcium 9.0 Total Bilirubin 0.7 AST 26 ALT 32 Alkaline Phosphatase 77 Troponin I High Sens < 2.3 L Total Protein 7.4 Albumin 4.6 Globulin 2.8 Albumin/Globulin Ratio 1.6 Lipase 32 PD MEDICAL DECISION MAKING - ED course ED course: 55-year-old gentleman with chest pain, resolved for the most part now. His biomarkers and EKG are without evidence of ischemia. There are some concerning facets to his history and I notified his PCP Dr. Marcial that he probably needs urgent stress testing. Departure - Departure Disposition: 01 Home, Self Care Clinical Impression: Chest pain Qualifiers: Chest pain type: unspecified Qualified Code(s): R07.9 - Chest pain, unspecified Condition: Good Record reviewed to determine appropriate education?: Yes Instructions: Angina Dc Comments: No evidence of active coronary issue right now, that said I believe you would benefit from stress testing in the very near future. I have contacted your physician to help get this set up, but I would call her office to clarify and get the timing of same. Until then continue taking baby aspirin daily. Return if worsening.
[2021-01-25 12:07] LABS: BASOPHILS % (AUTO) 0.3 %; EOSINOPHILS # (AUTO) 0.1 10^3/uL (0.0-0.7); EOSINOPHILS % (AUTO) 2.1 %; HCT - HEMATOCRIT 41.8 % (42.0-52.0); HGB - HEMOGLOBIN 14.5 g/dL (14.0-18.0); LYMPHOCYTES # (AUTO) 1.1 10^3/uL (1.5-3.5); LYMPHOCYTES % (AUTO) 16.7 %; MEAN CORPUSCULAR HGB CONC 34.7 g/dL (32.0-36.0); MEAN CORPUSCULAR VOLUME 86.4 fL (80.0-94.0); MEAN PLATELET VOLUME 8.8 fL (7.4-11.4); MONOCYTES # (AUTO) 0.5 10^3/uL (0.0-1.0); NEUTROPHILS % (AUTO) 73.6 %; PLT - PLATELET COUNT 197 10^3/uL (130-450); RED BLOOD COUNT 4.84 10^6/uL (4.70-6.10); RED CELL DISTRIBUTION WIDTH 13.1 % (12.0-15.0); WHITE BLOOD COUNT 6.8 x10^3/uL (4.8-10.8)
[2021-01-25 12:37] LABS: ALBUMIN 4.6 g/dL (3.2-5.5); ALBUMIN/GLOBULIN RATIO 1.6 (1.0-2.2); BILIRUBIN,TOTAL 0.7 mg/dL (0.2-1.0); CREATININE 0.8 mg/dL (0.6-1.2); POTASSIUM 3.9 mmol/L (3.5-5.0); TOTAL PROTEIN 7.4 g/dL (6.7-8.2)
--- NOTE | 2021-01-25 12:53 | XRAY Report ---
PROCEDURE: Chest 1 View X-Ray INDICATIONS: Chest pain TECHNIQUE: One view of the chest was acquired. COMPARISON: None. FINDINGS: Surgical changes and devices: None. Lungs and pleura: No pleural effusions or pneumothorax. Lungs are clear. Mediastinum: Mediastinal contours appear normal. Heart size is normal. Bones and chest wall: No suspicious bony lesions. Overlying soft tissues appear unremarkable. IMPRESSION: No acute cardiopulmonary process demonstrated radiographically. Reviewed by: Moises Garcia MD on 01/25/2021 12:51 PM PDT Approved by: Moises Garcia MD on 01/25/2021 12:51 PM PDT Station ID: [id number]
== END 2021-01-25 12:58 | disposition home or self-care (01) ==
LOC: ED 11:37
DX: R07.9 Chest pain, unspecified (principal); I45.10 Unspecified right bundle-branch block; I10 Essential (primary) hypertension; K21.9 Gastro-esophageal reflux disease without esophagitis
CPT/HCPCS: 36415; 80053; 83690; 84484; 85025; 93005; 99284

== ENCOUNTER 2021-02-11 07:42 | Outpatient (CLI) | payer MEDICARE, MEDICAID ==
--- NOTE | 2021-02-11 08:39 | CARDIAC PROCEDURE NOTE ---
Stress Test Report Service Date: 02/11/21 Service Time: 08:00 Ordering Provider: Catina Marcial DO Indication for Test: Assess episodic chest discomfort. Significant Medical History: -Dennis reports that over the last few weeks he has had episodic sharp chest pain that is new for him. He was seen in the [facility] Emergency Department on 01/25/2021 for a chest pain episode that was described as severe, originating in the central substernal region and radiating to his left arm and his back, with associated diaphoresis. He believes the discomfort lasted for at least 1 minute or longer, though also endorses its continued presence when he was in the Emergency Department, implying it lasted even longer than that. EKG showed right bundle branch block that was known to be present previously and his troponins were negative. Subsequently he has continued to experience similar symptoms intermittently, though perhaps not as severe as the index episode taking him to the hospital. He has remained on aspirin daily. He has a Jackson terrier that he "runs around in the backyard with"; he feels that his exertional tolerance is improving with more activity. Sometimes the recent chest discomfort is exertional in onset, but not always. -He has had stress testing before, including a treadmill test several years ago and a chemical stress test in September, prior to knee replacement surgery. He has had both knees replaced but feels that his walking is normal. He is on furosemide for lower extremity edema, which he says predated the knee surgeries. He feels that he can walk on the treadmill once again. Cardiac Risk Factors: Positive for hypertension and hyperlipidemia, borderline for cigarette smoking, which he quit about 10 years ago. He has a paternal aunt who underwent a heart transplant at a young age but he is not aware of the original cardiac diagnosis. His father in his late 80s from a stroke. He is not aware of other family members with atherosclerotic disease. Type of Stress Test: ETT with Echocardiography Procedure: -Exercise Treadmill Test- After signing informed consent, the patient underwent resting echo imaging and then performed treadmill exercise using a Eugene protocol. The patient exercised for 6 minutes 16 seconds and achieved a peak heart rate of 171 (103 percent predicted maximum heart rate for age), and an estimated workload of 7.7 METS. The test was terminated due to fatigue/shortness of breath after attaining target heart rate. Resting heart rate: 94 Peak heart rate: 171 Normal response to exercise. Resting BP: 176/73 Peak BP: 240/71 Hypertensive at standing baseline with physiologic response to exercise. Rhythm during exercise: Sinus rhythm throughout. Symptoms: Patient reported headache in stage 2 that rapidly resolved; he experienced NO chest pain during the study. EKG at rest showed normal sinus rhythm with right bundle branch block. EKG at peak stress showed no ischemia by EKG criteria. In Recovery heart rate and blood pressure returned to baseline levels. Echo imaging performed at rest and with stress will be reported separately. IKadeem MD, was present throughout this treadmill stress echocardiogram and supervised it in all aspects. Summary: 1) Exercise tolerance significantly reduced for age as evidenced by SONDRA of 31%. 2) Abnormal resting EKG, with RBBB. 3) Adequate level of exercise was achieved on this treadmill stress test. 4) Hypertensive at rest (standing) with physiologic SBP increase with exercise; DBP was stable throughout. 5) No ischemic changes by EKG criteria were seen at peak stress. 6) Echo image interpretation revealed normal left ventricular size and wall motion throughout with mild concentric hypertrophy; following peak stress there was augmentation of all segments, indicative of no prior infarct nor inducible ischemia. See separate report for more detail. PRELIMINARY CONCLUSIONS: 1) Stress echocardiogram is negative for inducible ischemia by symptoms, EKG and echo criteria; the latter is notable for finding of mild concentric left ventricular hypertrophy. 2) BP became elevated (140/72-->176/73) upon standing from sitting. Following the study the patient was given written instructions and a chart to record blood pressures prior to taking his BP meds on several occasions, to review, as well as accuracy of his blood pressure cuff, at an upcoming visit with Dr. Marcial.
== END 2021-02-11 07:43 | disposition home or self-care (01) ==
LOC: DI 07:42
PROVIDERS: ATTEND Family Medicine
DX: R07.89 Other chest pain (principal); I45.10 Unspecified right bundle-branch block; I10 Essential (primary) hypertension; E78.5 Hyperlipidemia, unspecified; Z87.891 Personal history of nicotine dependence
CPT/HCPCS: 93350

== ENCOUNTER 2021-04-11 12:12 | Emergency (ER) | payer MEDICARE, MEDICAID ==
[2021-04-11 12:34] VITALS: BP 153/68
--- NOTE | 2021-04-11 12:47 | ED Physician Documentation ---
PD HPI HEENT - Stated complaint Stated Complaint: BITE TONGUE - Chief complaint Chief Complaint: Heent - History obtained from History obtained from: Patient (He bit his tongue while eating a carrot just prior to arrival and it was bleeding quite heavily, at the time of my evaluation the bleeding has stopped.) Review of Systems Constitutional: reports: Reviewed and negative Eyes: reports: Reviewed and negative Nose: reports: Rhinorrhea / runny nose, Congestion PD PAST MEDICAL HISTORY - Past Medical History Cardiovascular: Hypertension, High cholesterol, Atrial fibrillation Respiratory: COPD Neuro: None Endocrine/Autoimmune: None GI: GERD : None HEENT: None Psych: Depression, Anxiety, Bipolar disorder Musculoskeletal: Osteoarthritis, Fibromyalgia, Chronic back pain Derm: None - Past Surgical History Past Surgical History: Yes Ortho: Knee replacement, Arthroscopic surgery, Spine surgery, Other - Present Medications Home Medications: Ambulatory Orders Medication Instructions Recorded Confirmed Albuterol Sulf [Ventolin Hfa 2 puffs PO DAILY PRN 02/16/17 11/29/19 Inhaler] Fluticasone [Flonase] 2 spray ROSSY DAILY 02/16/17 11/29/19 Pramipexole [Mirapex] 0.5 mg PO DAILY PM 02/16/17 11/29/19 Propranolol ER [Inderal LA] 80 mg PO BID 02/16/17 11/29/19 Cyclobenzaprine [Flexeril] 10 mg PO TID PRN #20 tablet 09/08/18 11/29/19 Furosemide 40 mg ORAL DAILY 12/23/18 11/29/19 Atorvastatin [Lipitor] 1 tab ORAL DAILY 11/29/19 11/29/19 Famotidine 20 mg ORAL DAILY 11/29/19 11/29/19 OXcarbazepine [Oxcarbazepine] 1 tab ORAL BID 11/29/19 11/29/19 - Allergies Allergies/Adverse Reactions: Allergies Allergy/AdvReac Type Severity Reaction Status Date / Time diphenhydramine Allergy Respiratory Verified 01/25/21 11:40 [From Benadryl] codeine AdvReac Edema Verified 04/11/21 12:27 hydrocodone [From Vicodin] AdvReac Emesis Verified 01/25/21 11:40 - Social History Does the pt smoke?: No Smoking Status: Never smoker Does the pt drink ETOH?: No Does the pt have substance abuse?: Yes - Immunizations Immunizations are current?: Yes - POLST Patient has POLST: No PD ED PE NORMAL - Vitals Vital signs reviewed: Yes - General General: Alert and oriented X 3, No acute distress - HEENT HEENT: Other (There is a less than 1 cm V shaped puncture wound to the middle part of the top of the tongue that is hemostatic.) - Neuro Neuro: Alert and oriented X 3, Normal speech Results - Vitals Vitals: Vital Signs - 24 hr 04/11/21 12:23 Temperature 36.3 C L Heart Rate 76 Respiratory 18 Rate Blood Pressure 153/68 H O2 Saturation 99 Oxygen O2 Source Room air Departure - Departure Disposition: Home, Self Care Condition: Good Record reviewed to determine appropriate education?: Yes Instructions: ED Laceration Mouth Comments: For your records, last tetanus shot was January 2019, so you are up-to-date. You will not want to eat anything that is sharp or very acidic or spicy until it is healed. Return as needed for new or worsening symptoms.
== END 2021-04-11 12:54 | disposition home or self-care (01) ==
LOC: ED 12:12
DX: S01.512A Laceration without foreign body of oral cavity, initial encounter (principal); X58.XXXA Exposure to other specified factors, initial encounter; Y93.89 Activity, other specified; Y92.009 Unspecified place in unspecified non-institutional (private) residence as the place of occurrence of the external cause
CPT/HCPCS: 99281; 99282

== ENCOUNTER 2021-07-06 12:49 | Outpatient (CLI) | payer MEDICARE, MEDICAID ==
[2021-07-06 18:22] LABS: ALBUMIN 4.4 g/dL (3.2-5.5); ALBUMIN/GLOBULIN RATIO 1.6 (1.0-2.2); BILIRUBIN,TOTAL 0.6 mg/dL (0.2-1.0); CALCIUM 8.7 mg/dL (8.5-10.3); CREATININE 0.7 mg/dL (0.6-1.2); POTASSIUM 3.9 mmol/L (3.5-5.0); TOTAL PROTEIN 7.1 g/dL (6.7-8.2)
== END 2021-07-06 12:50 | disposition home or self-care (01) ==
LOC: LAB.N 12:49
PROVIDERS: ATTEND Family Medicine
DX: E87.1 Hypo-osmolality and hyponatremia (principal)
CPT/HCPCS: 36415; 80053; 83935; 84300

== ENCOUNTER 2021-07-06 22:00 | Observation (INO) | payer MEDICARE, MEDICAID ==
[2021-07-06] MEDS ORDERED: SODIUM CHLORIDE 0.9% 1,000 ML IV STA (22:44)
[2021-07-06 23:00] LABS: BASOPHILS % (AUTO) 0.2 %; EOSINOPHILS # (AUTO) 0.1 10^3/uL (0.0-0.7); EOSINOPHILS % (AUTO) 2.1 %; HGB - HEMOGLOBIN 13.4 g/dL (14.0-18.0); LYMPHOCYTES # (AUTO) 1.5 10^3/uL (1.5-3.5); LYMPHOCYTES % (AUTO) 24.3 %; MEAN CORPUSCULAR HEMOGLOBIN 31.5 pg (27.0-31.0); MEAN CORPUSCULAR HGB CONC 36.2 g/dL (32.0-36.0); MEAN CORPUSCULAR VOLUME 87.1 fL (80.0-94.0); MEAN PLATELET VOLUME 8.6 fL (7.4-11.4); MONOCYTES # (AUTO) 0.7 10^3/uL (0.0-1.0); MONOCYTES % (AUTO) 11.2 %; NEUTROPHILS # (AUTO) 3.9 10^3/uL (1.5-6.6); NEUTROPHILS % (AUTO) 61.9 %; PLT - PLATELET COUNT 183 10^3/uL (130-450); RED BLOOD COUNT 4.25 10^6/uL (4.70-6.10); RED CELL DISTRIBUTION WIDTH 11.7 % (12.0-15.0); WHITE BLOOD COUNT 6.3 x10^3/uL (4.8-10.8)
[2021-07-06 23:08] LABS: CALCIUM 9.1 mg/dL (8.5-10.3); CREATININE 0.8 mg/dL (0.6-1.2); POTASSIUM 3.7 mmol/L (3.5-5.0)
--- NOTE | 2021-07-06 23:10 | ED Physician Documentation ---
History of Present Illness - Stated complaint Stated Complaint: SENT BY DR CHARLES/LOW SODIUM - Chief complaint Chief Complaint: General - History obtained from History obtained from: Patient - History of Present Illness Pain level max: 0 Pain level now: 0 Improved by: nothing Worsened by: no exacerbating factors - Additonal information Additional information: patient says he had a low serum sodium level a few weeks ago and yesterday had repeat labs to follow up on this. He was called this evening and told to go to the ED because his sodium level was low (119). I ask patient how he feels and he says fine, but in discussing symptoms of low sodium, he says he does have mild generalized headache, difficulty focussing/concentrating, mild lightheadedness. He says the cause of his low sodium was not determined. He says he feels that he drinks water regularly throughout each day because he feels dry mouth and thirsty, which he attributes to his psychiatric medications. Review of Systems Constitutional: reports: Reviewed and negative Cardiac: reports: Reviewed and negative Respiratory: reports: Reviewed and negative GI: reports: Abdominal Pain : reports: Frequency. denies: Dysuria Neurologic: reports: Headache. denies: Generalized weakness, Focal weakness, Numbness PD PAST MEDICAL HISTORY - Past Medical History Past Medical History: Yes Cardiovascular: Hypertension, High cholesterol, Atrial fibrillation Respiratory: COPD Neuro: None Endocrine/Autoimmune: None GI: GERD : None HEENT: None Psych: Depression, Anxiety, Bipolar disorder Musculoskeletal: Osteoarthritis, Fibromyalgia, Chronic back pain Derm: None - Past Surgical History Past Surgical History: Yes Ortho: Knee replacement, Arthroscopic surgery, Spine surgery, Other - Present Medications Home Medications: Ambulatory Orders Medication Instructions Recorded Confirmed Albuterol Sulf [Ventolin Hfa 2 puffs INH DAILY PRN 02/16/17 07/07/21 Inhaler] Furosemide 40 mg ORAL DAILY 12/23/18 07/06/21 Atorvastatin [Lipitor] 10 mg ORAL DAILY 11/29/19 07/07/21 OXcarbazepine [Oxcarbazepine] 600 - 1,200 mg ORAL BID 11/29/19 07/07/21 Cariprazine HCl [Vraylar] 3 mg PO DAILY 07/06/21 07/07/21 clonazePAM [Clonazepam] 0.5 mg PO BID 07/06/21 07/07/21 Cyclobenzaprine [Flexeril] 10 mg PO DAILY PRN 07/07/21 07/07/21 Fluticasone [Flonase] 1 spray ROSSY DAILY 07/07/21 07/07/21 Propranolol [Inderal] 80 mg PO BID 07/07/21 07/07/21 Trazodone HCl 100 mg PO QPM PRN 07/07/21 07/07/21 - Allergies Allergies/Adverse Reactions: Allergies Allergy/AdvReac Type Severity Reaction Status Date / Time diphenhydramine Allergy Respiratory Verified 07/06/21 22:16 [From Benadryl] codeine AdvReac Edema Verified 07/06/21 22:16 hydrocodone [From Vicodin] AdvReac Emesis Verified 07/06/21 22:16 - Social History Does the pt smoke?: No Smoking Status: Never smoker Does the pt drink ETOH?: No Does the pt have substance abuse?: Yes - Immunizations Immunizations are current?: Yes - POLST Patient has POLST: No PD ED PE NORMAL - Vitals Vital signs reviewed: Yes - General General: Alert and oriented X 3, No acute distress, Well developed/nourished - Neck Neck: Supple, no meningeal sign - Cardiac Cardiac: RRR, No murmur - Respiratory Respiratory: No respiratory distress, Clear bilaterally - Derm Derm: Normal color, Warm and dry - Neuro Neuro: Alert and oriented X 3 Eye Opening: Spontaneous Motor: Obeys Commands Verbal: Oriented GCS Score: 15 - Psych Psych: Normal mood, Normal affect PD ED PE EXPANDED - Extremities Extremities: Pedal edema bilateral (1+ pitting) Results - Vitals Vitals: Vital Signs - 24 hr 07/06/21 07/06/21 22:16 22:31 Temperature 36.6 C Heart Rate 76 79 Respiratory 13 14 Rate Blood Pressure 168/78 H 168/78 H O2 Saturation 100 100 Oxygen O2 Source Room air - Labs Labs: Laboratory Tests 07/06/21 07/06/21 07/06/21 22:50 22:50 22:50 WBC 6.3 RBC 4.25 L Hgb 13.4 L Hct 37.0 L MCV 87.1 MCH 31.5 H MCHC 36.2 H RDW 11.7 L Plt Count 183 MPV 8.6 Neut # (Auto) 3.9 Lymph # (Auto) 1.5 [place] # (Auto) 0.7 Eos # (Auto) 0.1 Baso # (Auto) 0.0 Absolute Nucleated RBC 0.00 Nucleated RBC % 0.0 Sodium 122 L Potassium 3.7 Chloride 88 L Carbon Dioxide 26 Anion Gap 8.0 BUN 18 Creatinine 0.8 Estimated GFR (MDRD) 100 Glucose 106 H Calcium 9.1 Urine Color YELLOW Urine Clarity CLEAR Urine pH 7.0 Ur Specific [place] <=1.005 Urine Protein NEGATIVE Urine Glucose (UA) NEGATIVE Urine Ketones NEGATIVE Urine Occult Blood NEGATIVE Urine Nitrite NEGATIVE Urine Bilirubin NEGATIVE Urine Urobilinogen 0.2 (NORMAL) Ur Leukocyte Esterase NEGATIVE Ur Microscopic Review NOT INDICATED Urine Culture Comments NOT INDICATED PD MEDICAL DECISION MAKING - ED course Complexity details: reviewed old records, reviewed results, re-evaluated patient, considered differential, d/w patient ED course: presents with hyponatremia, unclear etiology. He describes moderate amount of free water intake during the day, each day, which might be a contributing factor. In discussing symptoms of hyponatremia, he says he has had some degree of mild generalized headache, difficulty concentrating (thoughts when conversing), and some lightheadedness/dizziness. D/W Dr. Rodriguez, will admit to hospitalist service. Departure - Departure Disposition: ED Place in Observation Clinical Impression: Hyponatremia Condition: Stable Discharge Date/Time: 07/07/21 00:36
[2021-07-06] MEDS ORDERED: ACETAMINOPHEN 325 MG TABLET PO PRN (23:42)
[2021-07-06] MEDS ORDERED: ONDANSETRON 4 MG/2 ML VIAL IVP PRN (23:42)
[2021-07-06] MEDS ORDERED: SODIUM CHLORIDE FLUSH 0.9% 10 ML SYRINGE IVP PRN (23:42)
[2021-07-06] MEDS ORDERED: ONDANSETRON ODT 4 MG TABLET TL PRN (23:42)
--- NOTE | 2021-07-06 23:44 | HISTORY & PHYSICAL EXAMINATION ---
Chief Complaint - Chief Complaint Chief Complaint: Low sodium History of Present Illness - Admitted From Admitted From:: Home - History Obtained From Records Reviewed: [facility] History obtained from: Patient, ER Physician, EMR - History of Present Illness HPI Comment/Other: This is a 55-year-old male with a past medical history significant for bipolar disorder, hypertension who presents today to the emergency department due to abnormal labs. He states that he had routine labs this afternoon with his primary care physician and he was called late this evening about a low sodium and was told to come to the emergency department. He states that he feels well overall. He has had issues with low sodium in the past but that this is the lowest it has ever been. He denies any chest pain, dyspnea. He states his legs are always a little swollen and that he takes furosemide for this but he denies a history of heart failure or liver disease. He reports adequate oral intake. He states he drinks at least two 64 ounce cups of water a day. He reports always being thirsty because of his psych medications. He is taking oxcarbazepine and Vraylar and he feels that he has been on them for at least a year but cannot recall exactly. He denies any dysuria, urgency, frequency. He states he does urinate a decent amount throughout the day. Here in the emergency department, his sodium came back at 122 and therefore he will be placed in observation for further management. History - Past Medical History Cardiovascular: reports: Hypertension, High cholesterol, Atrial fibrillation Neuro: reports: None Endocrine/Autoimmune: reports: None GI: reports: GERD : reports: None HEENT: reports: None Psych: reports: Depression, Anxiety, Bipolar disorder Musculoskeletal: reports: Osteoarthritis, Fibromyalgia, Chronic back pain Derm: reports: None MRSA Hx?: No - Past Surgical History Ortho: reports: Knee replacement, Arthroscopic surgery, Spine surgery, Other - Family & Social History Family History Comment/Other: He reports his father from brain tumor. Reports no other medical history to his knowledge. Living arrangement: At home Social History Notes: He lives at home with his aunt who is also his power shear operator. He does not smoke and does not drink alcohol. - POLST Patient has POLST: No Meds/Allgy - Home Medications Home Medications: Ambulatory Orders Medication Instructions Recorded Confirmed Albuterol Sulf [Ventolin Hfa 2 puffs PO DAILY PRN 02/16/17 11/29/19 Inhaler] Propranolol ER [Inderal LA] 80 mg PO BID 02/16/17 11/29/19 Cyclobenzaprine [Flexeril] 10 mg PO TID PRN #20 tablet 09/08/18 11/29/19 Furosemide 40 mg ORAL DAILY 12/23/18 07/06/21 Atorvastatin [Lipitor] 1 tab ORAL DAILY 11/29/19 07/06/21 OXcarbazepine [Oxcarbazepine] 1 tab ORAL BID 11/29/19 07/06/21 Cariprazine HCl [Vraylar] 3 mg PO 07/06/21 clonazePAM [Clonazepam] 1 mg PO 07/06/21 - Allergies Allergies/Adverse Reactions: Allergies Allergy/AdvReac Type Severity Reaction Status Date / Time diphenhydramine Allergy Respiratory Verified 07/06/21 22:16 [From Benadryl] codeine AdvReac Edema Verified 07/06/21 22:16 hydrocodone [From Vicodin] AdvReac Emesis Verified 07/06/21 22:16 Review of Systems - Constitutional Constitutional: denies: Fever, Chills - Cardiovascular Cariovascular: denies: Chest pain, Exertional dyspnea, Decr. exercise tolerance - Respiratory Respiratory: denies: Cough, SOB at rest, SOB with exertion - Gastrointestinal Gastrointestinal: denies: Abdominal pain, Diarrhea, Nausea, Vomiting, Poor appetite - Genitourinary Genitourinary: denies: Dysuria, Frequency, Urgency, Hematuria - Integumentary Integumentary: denies: Rash - Neurological Neurological: denies: General weakness, Focal weakness - Endocrine Endocrine: reports: Polyuria, Polydypsia - All Other Systems All Other Systems: reports: Reviewed and negative Prior Level of Functionality: He is independent with his ADLs but does live with his aunt who is his power shear operator. Exam - Vital Signs Reviewed Vital Signs: Yes Vital Signs: Vital Signs x48h Temp Pulse Resp BP Pulse Ox 07/06/21 22:31 79 14 168/78 H 100 07/06/21 22:16 36.6 C 76 13 168/78 H 100 - Physical Exam General Appearance: positive: No acute distress, Alert Eyes Bilateral: positive: Normal inspection, Conjunctivae nml ENT: positive: ENT inspection nml, No signs of dehydration. negative: Dry mucous membranes Neck: positive: Nml inspection Respiratory: positive: No respiratory distress. negative: Wheezes, Rales Cardiovascular: positive: Regular rate & rhythm, No murmur. negative: Tachycardia Abdomen: positive: Non-tender, No distention. negative: Tenderness Skin: positive: Warm, Dry Extremities: positive: Pedal edema (Trace edema in bilateral lower extremities.) Neurologic/Psychiatric: negative: Disoriented to person, Disoriented to place Conclusion/Plan - Problem List (1) Hyponatremia Conclusion/Plan: I suspect this may be due to polydipsia. His urine is quite dilute and I suspect he may be drinking more water than he tells us. I doubt SIADH given his dilute urine. He is a little edematous on exam but prior echocardiogram did not reveal heart failure he does not have appear to have evidence of cirrhosis or nephrotic syndrome. We will place him on a free water restriction of 1800 mL a day. We will look to resume his oral Lasix tomorrow. We will not order urine osmolality given it is a send out lab and will not be available for a few days. We will check a urine sodium. Repeat BMP in the morning. Check TSH and AM cortisol. Follow up urinalysis. (2) Bipolar disorder Conclusion/Plan: Stable. We will continue his home medications given low suspicion for SIADH at this time. He will continue outpatient follow up with his Psychiatrist on discharge. (3) Hypertension Conclusion/Plan: He is hypertensive with systolics in the 160s. He did not have his evening dose of propranolol which we will give now. - Lab Results Lab results reviewed: Yes Fish Bones: 07/06/21 22:50 07/06/21 22:50 Core Measures - Anticipated LOS I expect patient to be DC'd or transferred within 96 hours.: Yes - Issues Hospital Issues and Management Plan: 55-year-old male with history of bipolar disorder, hypertension presents due to abnormal labs found to have low sodium. We will place in observation and place him on a free water restriction with consideration of resuming his Lasix and checking a BMP in the morning. - DVT/VTE - Prophylaxis VTE/DVT Device ordered at admit?: Yes VTE/DVT Prophylaxis med ordered at admit?: Yes
[2021-07-07] MEDS ORDERED: clonazePAM 0.5 MG TABLET PO PRN (00:17)
[2021-07-07] MEDS ORDERED: OXcarbazepine 150 MG TABLET PO SCH ×2 (00:17→09:00)
[2021-07-07] MEDS ORDERED: traZODone 50 MG TABLET PO SCH (00:17)
[2021-07-07 00:38] LABS: BILIRUBIN,URINE NEGATIVE (NEGATIVE); GLUCOSE, URINE (UA) NEGATIVE (NEGATIVE); KETONES,URINE (UA) NEGATIVE (NEGATIVE); LEUKOCYTE ESTERASE, URINE NEGATIVE (NEGATIVE); NITRITE,URINE NEGATIVE (NEGATIVE); OCCULT BLOOD,URINE NEGATIVE (NEGATIVE); PROTEIN,URINE NEGATIVE (NEGATIVE); UROBILINOGEN,URINE 0.2 (NORMAL) E.U./dL (NORMAL)
[2021-07-07 00:42] LABS: CLARITY,URINE CLEAR (CLEAR)
[2021-07-07] MEDS: PROPRANOLOL 10 MG TABLET PO SCH ×2 (01:29→09:25)
[2021-07-07] MEDS: SODIUM CHLORIDE FLUSH 0.9% 10 ML SYRINGE IVP SCH ×2 (01:30→09:26)
[2021-07-07 05:05] LABS: BASOPHILS % (AUTO) 0.1 %; EOSINOPHILS # (AUTO) 0.1 10^3/uL (0.0-0.7); HCT - HEMATOCRIT 39.2 % (42.0-52.0); HGB - HEMOGLOBIN 14.7 g/dL (14.0-18.0); LYMPHOCYTES # (AUTO) 1.3 10^3/uL (1.5-3.5); LYMPHOCYTES % (AUTO) 18.5 %; MEAN CORPUSCULAR HEMOGLOBIN 32.5 pg (27.0-31.0); MEAN CORPUSCULAR HGB CONC 37.5 g/dL (32.0-36.0); MEAN CORPUSCULAR VOLUME 86.5 fL (80.0-94.0); MEAN PLATELET VOLUME 8.6 fL (7.4-11.4); MONOCYTES # (AUTO) 0.5 10^3/uL (0.0-1.0); MONOCYTES % (AUTO) 7.7 %; NEUTROPHILS # (AUTO) 4.9 10^3/uL (1.5-6.6); NEUTROPHILS % (AUTO) 71.4 %; PLT - PLATELET COUNT 184 10^3/uL (130-450); RED BLOOD COUNT 4.53 10^6/uL (4.70-6.10); RED CELL DISTRIBUTION WIDTH 11.7 % (12.0-15.0); WHITE BLOOD COUNT 6.9 x10^3/uL (4.8-10.8)
[2021-07-07 05:13] LABS: CALCIUM 9.3 mg/dL (8.5-10.3); CREATININE 0.7 mg/dL (0.6-1.2); POTASSIUM 3.9 mmol/L (3.5-5.0)
[2021-07-07] MEDS ORDERED: ENOXAPARIN 40 MG/0.4 ML SYRINGE SUBQ SCH (09:00)
[2021-07-07 09:07] VITALS: BP 142/72
--- NOTE | 2021-07-07 11:58 | Discharge Plan ---
Discharge Plan Problem Reviewed?: Yes Disposition: Home, Self Care Condition: Stable Diet: Regular (but RESTRICT ALL FLUIDS down to less than 1 gallon total per day, or half the amount of fluids that he usually drank) Activity Restrictions: No Restrictions Shower Restrictions: No Weight Bearing: Full Weight Instruction Topics: Hyponatremia Dc Ch, Fluids Limiting Dc Health Concerns: The patient was hospitalized due to a severely low serum sodium, and we found that was caused by excessive fluid and water intake of over 2 gallons a day. He said he does this because he is "thirsty due to his medications". Going forward, patient needs to have his fluid intake restricted to 1 gallon per day of all fluids. For managing thirst, he should suck on hard candy. Patient may resume all his usual medications, no changes were made. Please have follow-up with Primary Care Provider closely, to keep an eye on his sodium level by blood testing. Plan of Treatment: As above. Care Goals: Improvement in symptoms and stabilization are the goals. Assessment: These reminders and instructions are provided at discharge for the patient's caregiver, his aunt, Allie. Additional Instructions or Follow Up instructions: If there are new or worsening symptoms, call the patient's PCP for advice or come to the ED. Follow-Up Care: Dietitian (Dr Marcial would need to give him a referral to be seen by the Equipment Operation Instructor here at [facility]) No Smoking: If you smoke, Please STOP! Call for help. Follow-up with: Catina Marcial DO [Primary Care Provider] -
--- NOTE | 2021-07-07 13:12 | DISCHARGE SUMMARY ---
Discharge Summary Admit Date: 07/06/21 Discharge Date: 07/07/21 Discharging Provider: Dr La Giang Primary Care Provider: Dr Catina Marcial Condition at Discharge: Stable Discharge Disposition: 01 Home, Self Care - HPI History of Present Illness: This is a 55-year-old male with a past medical history significant for bipolar disorder, hypertension who presents today to the emergency department due to abnormal labs. He states that he had routine labs this afternoon with his primary care physician and he was called late this evening about a low sodium and was told to come to the emergency department. He states that he feels well overall. He has had issues with low sodium in the past but that this is the lowest it has ever been. He denies any chest pain, dyspnea. He states his legs are always a little swollen and that he takes furosemide for this but he denies a history of heart failure or liver disease. He reports adequate oral intake. He states he drinks at least two 64 ounce cups of water a day. He reports always being thirsty because of his psych medications. He is taking oxcarbazepine and Vraylar and he feels that he has been on them for at least a year but cannot recall exactly. He denies any dysuria, urgency, frequency. He states he does urinate a decent amount throughout the day. Here in the emergency department, his sodium came back at 122 and therefore he will be placed in Observation for further management. - HOSPITAL COURSE Hospital Course: 1) Hyponatremia I suspect this may be due to polydipsia. His urine is quite dilute and he may be drinking more water than he tells us. Doubtful to be SIADH given his dilute urine. He was a little edematous on exam but prior Echocardiogram did not reveal heart failure, and he does not have appear to have evidence of cirrhosis or nephrotic syndrome. We placed him on a free water restriction of 1800 mL a day. We did not order urine osmolality, since it is a send out lab and will not be available for a few days. His BMP in the morning showed a normal Na. His TSH and AM cortisol were also normal. He was discharged with instructions about limiting water an fluid intake. I spoke to his aunt with these instructions, she is his caregiver, since he is disabled. (2) Psychogenic polydipsia He reported drinking 2 Big Gulp size liquids every day, because he is thirsty fom his psych meds. His aunt reported he does drink those 2 large containers, plus juice, soft drinks, milk and water. On the day of discharge, he and his aunt (by phone call) were given instructions on how to limit fluid intake (by about half of his usual), and to suck on hard candy instead, when he is thirsty. (3) Bipolar disorder Stable. We continued his home medications, since we had low suspicion for SIADH at this time. He will continue outpatient follow up with his Psychiatrist on discharge. (4) Hypertension He was briefly hypertensive with systolics in the 160s, since he did not have his evening dose of propranolol. VS normalized the next day, on his meds. - ALLERGIES Allergies/Adverse Reactions: Allergies Allergy/AdvReac Type Severity Reaction Status Date / Time diphenhydramine Allergy Respiratory Verified 07/06/21 22:16 [From Benadryl] codeine AdvReac Edema Verified 07/06/21 22:16 hydrocodone [From Vicodin] AdvReac Emesis Verified 07/06/21 22:16 - MEDICATIONS Home Medications: Ambulatory Orders Medication Instructions Recorded Confirmed Albuterol Sulf [Ventolin Hfa 2 puffs INH DAILY PRN 02/16/17 07/07/21 Inhaler] Furosemide 40 mg ORAL DAILY 12/23/18 07/06/21 Atorvastatin [Lipitor] 10 mg ORAL DAILY 11/29/19 07/07/21 OXcarbazepine [Oxcarbazepine] 600 - 1,200 mg ORAL BID 11/29/19 07/07/21 Cariprazine HCl [Vraylar] 3 mg PO DAILY 07/06/21 07/07/21 clonazePAM [Clonazepam] 0.5 mg PO BID 07/06/21 07/07/21 Cyclobenzaprine [Flexeril] 10 mg PO DAILY PRN 07/07/21 07/07/21 Fluticasone [Flonase] 1 spray ROSSY DAILY 07/07/21 07/07/21 Propranolol [Inderal] 80 mg PO BID 07/07/21 07/07/21 Trazodone HCl 100 mg PO QPM PRN 07/07/21 07/07/21 - PHYSICAL EXAM AT DISCHARGE General Appearance: positive: No acute distress, Alert, Other (Hair is colored purple) Eyes Bilateral: positive: Normal inspection, EOMI ENT: positive: ENT inspection nml, No signs of dehydration Neck: positive: Nml inspection, No JVD Respiratory: positive: No respiratory distress Cardiovascular: positive: Regular rate & rhythm Abdomen: positive: Non-tender, No distention Skin: positive: Warm, Dry Extremities: positive: Non-tender, No pedal edema Neurologic/Psychiatric: positive: Oriented x3 (Non-focal) - LABS Result Diagrams: 07/07/21 04:47 07/07/21 04:47 - DIAGNOSTIC IMAGING Diagnostic Imaging Results: Final report reviewed - FOLLOW UP Follow Up: See PCP in 1-2 weeks for labs and a hospital follow-up visit. - TIME SPENT Time Spent in Discharge (Minutes): 45
== END 2021-07-07 15:00 | disposition home or self-care (01) ==
LOC: ED 22:00 → MS3 23:42
PROVIDERS: ADMIT Internal Medicine; ATTEND Internal Medicine
DX: E87.1 Hypo-osmolality and hyponatremia (principal); R63.1 Polydipsia; T42.1X5A Adverse effect of iminostilbenes, initial encounter; T43.595A Adverse effect of other antipsychotics and neuroleptics, initial encounter; E78.00 Pure hypercholesterolemia, unspecified; I10 Essential (primary) hypertension; I48.91 Unspecified atrial fibrillation; K21.9 Gastro-esophageal reflux disease without esophagitis; F31.9 Bipolar disorder, unspecified; F41.9 Anxiety disorder, unspecified; G89.29 Other chronic pain; M19.90 Unspecified osteoarthritis, unspecified site; M54.9 Dorsalgia, unspecified; M79.7 Fibromyalgia; J44.9 Chronic obstructive pulmonary disease, unspecified; R10.9 Unspecified abdominal pain; R35.89 Other polyuria; R60.0 Localized edema; Z20.822 Contact with and (suspected) exposure to COVID-19; Z79.899 Other long term (current) drug therapy; Z88.5 Allergy status to narcotic agent; Z88.8 Allergy status to other drugs, medicaments and biological substances; Z96.659 Presence of unspecified artificial knee joint
CPT/HCPCS: 36415; 80048; 80053; 81003; 82533; 83935; 84300; 84443; 85025; 87635; 96372; 99284; 99285; A9270; G0378; J1650; 81001; 87086

== ENCOUNTER 2021-07-14 17:34 | Outpatient (CLI) | payer MEDICARE, MEDICAID ==
[2021-07-14 21:42] LABS: CALCIUM 9.4 mg/dL (8.5-10.3); CREATININE 0.9 mg/dL (0.6-1.2); POTASSIUM 4.1 mmol/L (3.5-5.0)
== END 2021-07-14 17:35 | disposition home or self-care (01) ==
LOC: LAB.N 17:34
PROVIDERS: ATTEND Nurse Practitioner Family
DX: E87.1 Hypo-osmolality and hyponatremia (principal)
CPT/HCPCS: 36415; 80048

== ENCOUNTER 2021-09-01 10:54 | Outpatient (CLI) | payer MEDICARE, MEDICAID | END 2021-09-01 10:55 | disposition home or self-care (01) | LOC: NS 10:54 | PROVIDERS: ATTEND Nurse Practitioner Family | DX: Z71.3 Dietary counseling and surveillance (principal); E87.1 Hypo-osmolality and hyponatremia | CPT/HCPCS: 97802 ==

== ENCOUNTER 2021-10-01 16:00 | Outpatient (CLI) | payer MEDICARE, MEDICAID | END 2021-10-01 23:59 | disposition home or self-care (01) | LOC: LAB.R 16:00 | PROVIDERS: ATTEND Nurse Practitioner | DX: N39.0 Urinary tract infection, site not specified (principal) | CPT/HCPCS: 87086 ==

== ENCOUNTER 2021-10-05 14:54 | Outpatient (CLI) | payer MEDICARE, MEDICAID | END 2021-10-05 14:55 | disposition home or self-care (01) | LOC: NS 14:54 | PROVIDERS: ATTEND Nurse Practitioner Family | DX: Z71.3 Dietary counseling and surveillance (principal); E87.1 Hypo-osmolality and hyponatremia | CPT/HCPCS: 97803 ==

== ENCOUNTER 2021-11-04 10:30 | Observation (INO) | payer MEDICARE, MEDICAID ==
[2021-11-04 11:05] LABS: BASOPHILS % (AUTO) 0.1 %; EOSINOPHILS # (AUTO) 0.1 10^3/uL (0.0-0.7); HGB - HEMOGLOBIN 15.4 g/dL (14.0-18.0); LYMPHOCYTES # (AUTO) 0.7 10^3/uL (1.5-3.5); LYMPHOCYTES % (AUTO) 8.1 %; MEAN CORPUSCULAR HEMOGLOBIN 31.2 pg (27.0-31.0); MEAN CORPUSCULAR HGB CONC 36.7 g/dL (32.0-36.0); MEAN PLATELET VOLUME 8.7 fL (7.4-11.4); MONOCYTES # (AUTO) 0.7 10^3/uL (0.0-1.0); NEUTROPHILS # (AUTO) 6.9 10^3/uL (1.5-6.6); NEUTROPHILS % (AUTO) 82.4 %; PLT - PLATELET COUNT 190 10^3/uL (130-450); RED BLOOD COUNT 4.94 10^6/uL (4.70-6.10); WHITE BLOOD COUNT 8.4 x10^3/uL (4.8-10.8)
[2021-11-04 11:17] LABS: ALBUMIN 4.8 g/dL (3.2-5.5); ALBUMIN/GLOBULIN RATIO 1.8 (1.0-2.2); BILIRUBIN,TOTAL 0.9 mg/dL (0.2-1.0); CALCIUM 9.4 mg/dL (8.5-10.3); CREATININE 0.7 mg/dL (0.6-1.2); POTASSIUM 4.2 mmol/L (3.5-5.0); TOTAL PROTEIN 7.5 g/dL (6.7-8.2)
--- NOTE | 2021-11-04 11:45 | ED Physician Documentation ---
History of Present Illness - Stated complaint Stated Complaint: LOW SODIUM LEVELS - Chief complaint Chief Complaint: General - History obtained from History obtained from: Patient, Caregiver - Additonal information Additional information: 56-year-old male with history of bipolar disorder on numerous antipsychotics presents for abnormal sodium level. Patient is stated for the last few days he has felt "confused" and "out of it". Care provider at bedside confirmed that the patient seems to not be himself for the last few days. Earlier this week he had laboratory work done by his primary care physician, they received a call today stating that his sodium was 125 and he needed to come to the ER immediately for evaluation. Caregiver does not know what his baseline sodium is. Patient drinks water "all day every day" and is also on oxcarbazepine. Reports compliance with all medications Review of Systems Unable to obtain: Confused PD PAST MEDICAL HISTORY - Past Medical History Past Medical History: Yes Cardiovascular: Hypertension, High cholesterol, Atrial fibrillation Respiratory: COPD Neuro: None Endocrine/Autoimmune: None GI: GERD : None HEENT: None Psych: Depression, Anxiety, Bipolar disorder Musculoskeletal: Osteoarthritis, Fibromyalgia, Chronic back pain Derm: None - Past Surgical History Past Surgical History: Yes Ortho: Knee replacement, Arthroscopic surgery, Spine surgery, Other - Present Medications Home Medications: Ambulatory Orders Medication Instructions Recorded Confirmed Albuterol Sulf [Ventolin Hfa 2 puffs INH DAILY PRN 02/16/17 11/04/21 Inhaler] Furosemide 20 mg PO DAILY 12/23/18 11/04/21 Atorvastatin [Lipitor] 10 mg ORAL DAILY 11/29/19 11/04/21 Cariprazine HCl [Vraylar] 3 mg PO DAILY 07/06/21 11/04/21 Cyclobenzaprine [Flexeril] 10 mg PO DAILY PRN 07/07/21 11/04/21 Propranolol [Inderal] 80 mg PO BID 07/07/21 11/04/21 Trazodone HCl 100 mg PO QPM PRN 07/07/21 11/04/21 Fluoxetine HCl [Prozac] 40 mg PO DAILY 11/04/21 11/05/21 OXcarbazepine [Trileptal] 1,200 mg PO QPM 11/04/21 11/04/21 OXcarbazepine [Trileptal] 600 mg PO DAILY 11/04/21 11/04/21 Tamsulosin [Flomax] 0.4 mg PO DAILY 11/04/21 11/04/21 clonazePAM [Klonopin] 1 mg PO BID 11/04/21 11/05/21 - Allergies Allergies/Adverse Reactions: Allergies Allergy/AdvReac Type Severity Reaction Status Date / Time diphenhydramine Allergy Respiratory Verified 11/05/21 14:25 [From Benadryl] codeine AdvReac Edema Verified 11/05/21 14:25 hydrocodone [From Vicodin] AdvReac Emesis Verified 11/05/21 14:25 - Social History Does the pt smoke?: No Smoking Status: Never smoker Does the pt drink ETOH?: No Does the pt have substance abuse?: Yes - Immunizations Immunizations are current?: Yes - POLST Patient has POLST: No PD ED PE NORMAL - Vitals Vital signs reviewed: Yes - General General: No acute distress, Well developed/nourished, Other (AOx2) - HEENT HEENT: Atraumatic, PERRL - Neck Neck: Supple, no meningeal sign, No bony TTP, No adenopathy - Cardiac Cardiac: RRR, No murmur, No gallop - Respiratory Respiratory: No respiratory distress, Clear bilaterally - Abdomen Abdomen: Soft, Non tender, Non distended - Back Back: No CVA TTP, No spinal TTP - Derm Derm: Normal color, Warm and dry, No rash - Extremities Extremities: No deformity, No tenderness to palpate, Normal ROM s pain, No edema - Neuro Neuro: visual communications instructor 2-12 intact, No motor deficit, No sensory deficit, Other (speech slow, normal) - Psych Psych: Normal mood, Other (flat affect) Results - Vitals Vitals: Oxygen O2 Source Room air - Labs Labs: Laboratory Tests 11/04/21 11/04/21 11/04/21 11:00 11:00 13:07 WBC 8.4 RBC 4.94 Hgb 15.4 Hct 42.0 MCV 85.0 MCH 31.2 H MCHC 36.7 H RDW 12.0 Plt Count 190 MPV 8.7 Neut # (Auto) 6.9 H Lymph # (Auto) 0.7 L [place] # (Auto) 0.7 Eos # (Auto) 0.1 Baso # (Auto) 0.0 Absolute Nucleated RBC 0.00 Nucleated RBC % 0.0 Sodium 125 L Potassium 4.2 Chloride 91 L Carbon Dioxide 26 Anion Gap 8.0 BUN 11 Creatinine 0.7 Estimated GFR (MDRD) 117 Glucose 126 H Calcium 9.4 Total Bilirubin 0.9 AST 22 ALT 18 Alkaline Phosphatase 94 Total Protein 7.5 Albumin 4.8 Globulin 2.7 Albumin/Globulin Ratio 1.8 Urine Sodium 105.0 PD MEDICAL DECISION MAKING - ED course Complexity details: reviewed results ED course: Hyponatremia, possibly psychogenic from water intake or drug related. Confirmed Na 125, unable to see previous values. Departure - Departure Disposition: 66 [facility] DC/Xfer Clinical Impression: Hyponatremia Condition: Fair Discharge Date/Time: 11/04/21 13:55
--- NOTE | 2021-11-04 12:23 | XRAY Report ---
PROCEDURE: Chest 1 View X-Ray INDICATIONS: ams TECHNIQUE: One view of the chest was acquired. COMPARISON: 01/25/2021 FINDINGS: Surgical changes and devices: None. Lungs and pleura: No pleural effusions or pneumothorax. Lungs are clear. Mediastinum: Mediastinal contours appear normal. Heart size is normal. Bones and chest wall: No suspicious bony lesions. Overlying soft tissues appear unremarkable. IMPRESSION: No acute cardiothoracic abnormality. Reviewed by: Saleem Mohamud MD on 11/04/2021 12:21 PM PDT Approved by: Saleem Mohamud MD on 11/04/2021 12:21 PM PDT Station ID: [id number]
--- NOTE | 2021-11-04 13:00 | CT Report ---
PROCEDURE: HEAD WO INDICATIONS: ams TECHNIQUE: Noncontrast 4.5 mm thick angled axial sections acquired from the foramen magnum to the vertex. For r adiation dose reduction, the following was used: automated exposure control, adjustment of mA and/or kV according to patient size. COMPARISON: 01/14/2021 FINDINGS: Image quality: Excellent. CSF spaces: Basal cisterns are patent. No extra-axial fluid collections. Ventricles are normal in size and shape. Brain: No midline shift. No intracranial masses or hemorrhage. Kamara-white matter interface is norm al. Skull and face: Calvarium and visualized facial bones are intact, without suspicious lesions. Sinuses: Visualized sinuses and mastoids are clear. IMPRESSION: No acute intracranial finding. Reviewed by: Moises Garcia MD on 11/04/2021 12:59 PM PDT Approved by: Moises Garcia MD on 11/04/2021 12:59 PM PDT Station ID: [id number]
[2021-11-04] MEDS ORDERED: ACETAMINOPHEN 325 MG TABLET PO PRN (13:08)
[2021-11-04] MEDS ORDERED: ONDANSETRON ODT 4 MG TABLET TL PRN (13:08)
[2021-11-04] MEDS ORDERED: SODIUM CHLORIDE FLUSH 0.9% 10 ML SYRINGE IVP PRN (13:08)
[2021-11-04] MEDS ORDERED: SODIUM CHLORIDE 0.9% 1,000 ML IV STA (13:08)
[2021-11-04] MEDS ORDERED: ONDANSETRON 4 MG/2 ML VIAL IVP PRN (13:08)
[2021-11-04] MEDS: SODIUM CHLORIDE 0.9% 1,000 ML IV SCH ×2 (14:13→23:47)
--- NOTE | 2021-11-04 14:54 | HISTORY & PHYSICAL EXAMINATION ---
Chief Complaint - Chief Complaint Chief Complaint: "foggy thinking" History of Present Illness - Admitted From Admitted From:: home - History Obtained From Records Reviewed: [facility] and [facility] [employer] [facility] History obtained from: Dr. Krishna Exam Limitations: none - History of Present Illness HPI Comment/Other: He is followed by Leana ALLEN at our local clinic and was last seen by them since 10/12/21. He had lab work done on October 26. This was in preparation to be seen in followup for hyponatremia. He was called today for the October 26 report where sodium was 125. He was told to go to the ER. The patient reports that he is "lethargic" and with a foggy brain. His Aunt/Caregiver that he lives with reports he has been starting to slowly spiral down with regards to his thought. Perservates and fixates. It doesn't help that she and her daughter listen to rastafarian radio and the patient is starting to internalize the rastafarian message. He is fixated on the idea that he is going to soon. Repeat labs in our emergency room show a sodium of 125. In trying to figure out why he has a low sodium, he is not on an SSRI, he does take Trileptal. He also reports that he gets very thirsty and drinks "lots of water" all day long. There is no other recent change in medications or status. The emergency room marlen sanchez is asking for an observation stay to give him IV fluids and bump up his sodium. In looking at the electronic medical record the patient is intermittently hyponatremic. The lowest he has been was 119 in July 06, 2021. He was seen in the emergency room for that sodium. Placed in observation and given normal saline, and sent home with instructions on fluid limitations. 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 At that time he was drinking 2 64 ounce big gulp containers of water daily. A previous echo has no congestive heart failure. His morning cortisol and thyroid function studies have been normal in the past. Urinalysis showed a very dilute urine. With the intervention of fluid restriction, He then bumped up to 122 then 130. He is now down to 125. So he is drinking 1 64 ounce big up container. It is a special concoction of a fire code inspector that they start to get an opinion about trying to cut back on free water. But she notes that he still drinks quite a bit of water with his meals. And uses water to get his pills down. So she does not know how successful they are in totally controlling how much fluid he gets on a daily basis. Other than the foggy thinking, the patient denies any seizure, confusion, headache, blurred vision. His caregiver reports that basically he has bipolar disorder seems to be deteriorating. He is getting to be a little bit more paranoid and delusional. The patient himself is slightly upset. Although he has quite a flat affect, he keeps on asking me "I just want to go home". History - Past Medical History Cardiovascular: reports: Hypertension, High cholesterol, Atrial fibrillation, Other (Chronic lower extremity edema with chronic left plantar callus/ulcer) Respiratory: reports: COPD Neuro: reports: Headaches Endocrine/Autoimmune: reports: None GI: reports: GERD, Other (Irritable bowel bowel syndrome) : reports: Other (Chronic urgency/frequency with history of UTI) HEENT: reports: Other (Chronic bruxism with TMJ pain) Psych: reports: Depression, Anxiety, Bipolar disorder Musculoskeletal: reports: Osteoarthritis, Fibromyalgia, Chronic back pain Derm: reports: None MRSA Hx?: No - Past Surgical History Ortho: reports: Knee replacement, Arthroscopic surgery, Spine surgery, Other - Family & Social History Family History Comment/Other: He reports his father from brain tumor in the last year. Mom is alive and in [facility] and healthy as far as they know x for undiagnosed mental illness. 1 brother but not in contact with him. No children. Reports no other medical history to his knowledge. Living arrangement: At home Living Situation: With family, With legal guardian Social History Notes: He lives at home with his aunt who is also his covering and lining supervisor. He does not smoke and does not drink alcohol. He was fairly functional and working up until about 25 years ago when he had his mental breakdown. Continue to live with his mother and father in [facility]. It was not a healthy relationship according to the caregiver. He came up here to [facility] for few months to be with his aunt and was visiting her while her daughter was in active duty. He went back down to [facility] for a year and then came back up here to house it. He never went back. That was around 2016. - Substance History Use: Uses substance without health or social issues: NONE Abuse: Recurrent use of substance despite neg consequences: NONE Dependence: Experiences withdrawal or developed tolerances: NONE - POLST Patient has POLST: No POLST Status: Full Code Meds/Allgy - Home Medications Home Medications: Ambulatory Orders Medication Instructions Recorded Confirmed Albuterol Sulf [Ventolin Hfa 2 puffs INH DAILY PRN 02/16/17 11/04/21 Inhaler] Furosemide 20 mg PO DAILY 12/23/18 11/04/21 Atorvastatin [Lipitor] 10 mg ORAL DAILY 11/29/19 11/04/21 Cariprazine HCl [Vraylar] 3 mg PO DAILY 07/06/21 11/04/21 Cyclobenzaprine [Flexeril] 10 mg PO DAILY PRN 07/07/21 11/04/21 Propranolol [Inderal] 80 mg PO BID 07/07/21 11/04/21 Trazodone HCl 100 mg PO QPM PRN 07/07/21 11/04/21 Fluoxetine HCl [Prozac] 40 mg PO 11/04/21 OXcarbazepine [Trileptal] 1,200 mg PO QPM 11/04/21 11/04/21 OXcarbazepine [Trileptal] 600 mg PO DAILY 11/04/21 11/04/21 Tamsulosin [Flomax] 0.4 mg PO DAILY 11/04/21 11/04/21 clonazePAM [Klonopin] 1 mg PO BID 11/04/21 - Allergies Allergies/Adverse Reactions: Allergies Allergy/AdvReac Type Severity Reaction Status Date / Time diphenhydramine Allergy Respiratory Verified 11/04/21 10:51 [From Benadryl] codeine AdvReac Edema Verified 11/04/21 10:51 hydrocodone [From Vicodin] AdvReac Emesis Verified 11/04/21 10:51 Review of Systems - Constitutional Constitutional: reports: Fatigue, Malaise. denies: Fever, Chills, Weakness, Poor appetite, Diaphoresis, Night sweats - Eyes Eyes: denies: Pain, Irritation, Amaurosis, Blurred vision - Ears, Nose & Throat Ears, Nose & Throat: denies: Ear pain, Hearing loss, Hearing aids, Tinnitus, Vertigo, Nasal discharge, Sore throat - Cardiovascular Cariovascular: denies: Irregular heart rate, Chest pain, Edema, Lightheadedness, Syncope, Exertional dyspnea, Decr. exercise tolerance - Respiratory Respiratory: denies: Cough, Sputum production, Wheezing, Snoring, SOB at rest, SOB with exertion - Gastrointestinal Gastrointestinal: reports: Constipation (chronic). denies: Abdominal pain, Abdominal distention, Diarrhea, Black stools, Bloody stools - Genitourinary Genitourinary: reports: Dysuria, Frequency, Urgency, Nocturia. denies: Hematur ia, Incontinence, Flank pain - Musculoskeletal Musculoskeletal: reports: Muscle pain, Back pain, Muscle aches, Stiffness, Joint pain, Other (All of his musculoskeletal complaints are chronic. There is nothing new.). denies: Limited range of motion, Muscle weakness - Integumentary Integumentary: denies: Rash, Pruritis, Lesions, Dryness, Lumps - Neurological Neurological: denies: General weakness, Focal weakness, Headache, Dizziness, Numbness, Memory problems - Psychiatric Psychiatric: reports: Depression, Anxiety. denies: Suicidal, Hallucinations, Homicidal - Endocrine Endocrine: reports: Polyuria, Polydypsia. denies: Polyphagia, Intolerance to cold - Hematologic/Lymphatic Hematologic/Lymphatic: denies: Anemia, Bruising, Petechiae Prior Level of Functionality: He is able to dress himself, feed himself. Due to his cognition and mental health, he has a covering and lining supervisor that he lives with. This is his aunt. He does not use any durable medical equipment Exam - Vital Signs Reviewed Vital Signs: Yes Vital Signs: Vital Signs x48h Temp Pulse Pulse Resp BP BP Pulse Ox 11/04/21 14:06 36.8 C 63 15 158/75 H 99 11/04/21 11:55 56 L 13 144/78 H 11/04/21 10:48 36.8 C 59 L 14 140/60 H 99 - Physical Exam General Appearance: positive: No acute distress, Alert (Well-groomed, well- nourished), Other (Sitting upright in chair, watching TV, flat affect, repetitive requests that centered around "I want to go home") Eyes Bilateral: positive: PERRL, EOMI ENT: positive: Pharynx nml, No signs of dehydration Neck: positive: No JVD. negative: Stiff neck Respiratory: positive: No respiratory distress. negative: Wheezes, Rales, Rhonchi Cardiovascular: positive: Regular rate & rhythm. negative: Gallop/S4, Friction rub Peripheral Pulses: positive: 1+ Abdomen: positive: Non-tender, No organomegaly, Nml bowel sounds, No distention Skin: positive: Warm, Dry, Pallor Extremities: positive: Non-tender, Full ROM, No pedal edema Neurologic/Psychiatric: positive: CN's nml (2-12), Motor nml, Disoriented to time, Depressed mood/affect (Very flat affect. Masked facies.) Conclusion/Plan - Problem List (1) Hyponatremia Conclusion/Plan: Attributed to #2. This sodium is not nearly as severely low as it was in June. We will give the patient normal saline. Recheck tonight and recheck tomorrow. Once sodium is at 130 or above he will be discharged. (2) Psychogenic polydipsia Conclusion/Plan: There is a 500 cc canister that we use here in the hospital to put water and icing for patients. I explained to her and occurred that he cannot have more than 3 of these of combined total fluid intake per day. That would be about 1500 cc. These canisters need to be what he drinks for water, soda, tea, Gatorade, etc. This is what he uses to eat with dinner, and this is what he w ould use to take his medicines. She wants to take 1 of these home with her and I said that is perfectly fine. She will discuss with his psychologist to let him know that Dennis is not doing well and seems to be spiraling down as well as still having problems with polydipsia. (3) Bipolar affective disorder Conclusion/Plan: On medications. Living with a caregiver. Medications will not be changed. Those will be resumed. Caregiver and Dennis will discuss the feeling that he is starting to spiral out of control again. Qualifiers: Active/Remission status: currently active Current bipolar episode type: mixed Current episode severity: mild Qualified Code(s): F31.61 - Bipolar disorder, current episode mixed, mild (4) Hypertension Conclusion/Plan: Blood pressure is 140 258 in the emergency room. He is on propranolol, Lasix, and may be a candidate for an MYRNA inhibitor. We will let his primary care pro vider make that decision. Qualifiers: Hypertension type: primary hypertension Qualified Code(s): I10 - Essential (primary) hypertension (5) Glucose intolerance Conclusion/Plan: Random glucoses are mildly elevated in the EMR. He is anywhere between 120-140. Yet A1c shows less than 6% level. Other than carb restriction no other change - Lab Results Lab results reviewed: Yes Fish Bones: 11/04/21 11:00 11/04/21 11:00 Core Measures - Anticipated LOS I expect patient to be DC'd or transferred within 96 hours.: Yes - DVT/VTE - Prophylaxis VTE/DVT Device ordered at admit?: No Not Ordered - Low Risk: Very low risk VTE/DVT Prophylaxis med ordered at admit?: No Not Ordered - Medical Reason: Not indicated
[2021-11-04] MEDS: SODIUM CHLORIDE FLUSH 0.9% 10 ML SYRINGE IVP SCH ×2 (17:46→23:52)
[2021-11-04 18:13] LABS: CALCIUM 8.8 mg/dL (8.5-10.3); CREATININE 0.7 mg/dL (0.6-1.2); POTASSIUM 3.5 mmol/L (3.5-5.0)
[2021-11-04] MEDS ORDERED: TEMAZEPAM 15 MG CAPSULE PO PRN (23:47)
[2021-11-05 06:05] LABS: CALCIUM 9.2 mg/dL (8.5-10.3); CREATININE 0.7 mg/dL (0.6-1.2); POTASSIUM 3.9 mmol/L (3.5-5.0)
--- NOTE | 2021-11-05 07:16 | Discharge Plan ---
Discharge Plan Problem Reviewed?: Yes Disposition: Home, Self Care Condition: Fair Diet: Regular Activity Restrictions: Activity as Tolerated Shower Restrictions: No Driving Restrictions: Yes (no driving) Instruction Topics: Hyponatremia Dc, Sodium Blood Health Concerns: You came to our emergency room because your doctor's office told her to do so. You had blood work done on October 25 and they called you on the day of admission to tell you to go to the emergency room because your sodium/salt was low. The only complaint you had in our emergency room was that you had "foggy thinking". After reviewing your records, looking at your blood work, we think that your low sodium is because you drink too much water. This is actually a very dangerous thing and it could lead to seizures or brain damage. Plan of Treatment: 1. We gave you salt water while here. We also restricted how much water you could drink. While at home, I have given you a 500 cc cup to drink out of. All of your fluid intake for the day cannot exceed more than 3 of these cups. That includes all of the water you drink during the day, water at the dinner table, or water with your medicines/pills. It also should include all of your coffee, tea, soda etc. 2. You are showing symptoms that your bipolar disorder is getting destabilize. I am very sorry about that. That must feel terrible. Please make sure you follow-up with your mental health provider to address that issue. Do so as soon as possible. 3. Please also see your primary care provider in the next 1 to 2 weeks so that they can recheck your salt level in your blood. Care Goals: To maintain a normal salt level in your blood without over drinking water Assessment: Patient has some cognitive delay due to medications and current mild exacerbation of bipolar disorder. His aunt and caregiver was the primary advoca te that we spoke to and explained the problem to No Smoking: If you smoke, Please STOP! Call for help. Follow-up with: Leana Hassan ARNP [Primary Care Provider] -
[2021-11-05 08:10] VITALS: BP 133/76
[2021-11-05] MEDS: SODIUM CHLORIDE FLUSH 0.9% 10 ML SYRINGE IVP SCH (10:54)
--- NOTE | 2021-11-17 01:04 | DISCHARGE SUMMARY ---
Discharge Summary Admit Date: 11/04/21 Discharge Date: 11/05/21 Discharging Provider: Jackeline Fulton MD Primary Care Provider: CIRO Johnston Code Status: Attempt Resuscitation Condition at Discharge: Fair Discharge Disposition: 01 Home, Self Care - DIAGNOSES Discharge Diagnoses with Status of Each Condition: 1. Hyponatremia 2. Psychogenic polydipsia 3. Bipolar affect disorder 4. Hypertension 5. Glucose intolerance - HPI History of Present Illness: He is followed by Leana ALLEN at our local clinic and was last seen by them since 10/12/21. He had lab work done on October 26. This was in preparation to be seen in followup for hyponatremia. He was called today for the October 26 report where sodium was 125. He was told to go to the ER. The patient reports that he is "lethargic" and with a foggy brain. His Aunt/Caregiver that he lives with reports he has been starting to slowly spiral down with regards to his thought. Perservates and fixates. It doesn't help that she and her daughter listen to mormonism radio and the patient is starting to internalize the mormonism message. He is fixated on the idea that he is going to soon. Repeat labs in our emergency room show a sodium of 125. In trying to figure out why he has a low sodium, he is not on an SSRI, he does take Trileptal. He also reports that he gets very thirsty and drinks "lots of water" all day long. There is no other recent change in medications or status. The emergency room provider is asking for an observation stay to give him IV fluids and bump up his sodium. In looking at the electronic medical record the patient is intermittently hyponatremic. The lowest he has been was 119 in July 06, 2021. He was seen in the emergency room for that sodium. Placed in observation and given normal saline, and sent home with instructions on fluid limitations. 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 At that time he was drinking 2 64 ounce big gulp containers of water daily. A previous echo has no congestive heart failure. His morning cortisol and thyroid function studies have been normal in the past. Urinalysis showed a very dilute urine. With the intervention of fluid restriction, He then bumped up to 122 then 130. He is now down to 125. So he is drinking 1 64 ounce big up container. It is a special concoction of a chief engineer drilling and recovery that they start to get an opinion about trying to cut back on free water. But she notes that he still drinks quite a bit of water with his meals. And uses water to get his pills down. So she does not know how successful they are in totally controlling how much fluid he gets on a daily basis. Other than the foggy thinking, the patient denies any seizure, confusion, headache, blurred vision. His caregiver reports that basically he has bipolar disorder seems to be deteriorating. He is getting to be a little bit more paranoid and delusional. The patient himself is slightly upset. Although he has quite a flat affect, he keeps on asking me "I just want to go home". - Past Medical History Cardiovascular: reports: Hypertension, High cholesterol, Atrial fibrillation, Other (Chronic lower extremity edema with chronic left plantar callus/ulcer) Respiratory: reports: COPD Neuro: reports: Headaches Endocrine/Autoimmune: reports: None GI: reports: GERD, Other (Irritable bowel bowel syndrome) : reports: Other (Chronic urgency/frequency with history of UTI) HEENT: reports: Other (Chronic bruxism with TMJ pain) Psych: reports: Depression, Anxiety, Bipolar disorder Musculoskeletal: reports: Osteoarthritis, Fibromyalgia, Chronic back pain Derm: reports: None MRSA Hx?: No - Past Surgical History Ortho: reports: Knee replacement, Arthroscopic surgery, Spine surgery, Other - HOSPITAL COURSE Hospital Course: The patient was placed in observation status. Free water restriction was placed on the patient and he was given a slow rate of normal saline. Sodium went from 1 25-1 24 and was 129 at discharge. He appears to still have elements of psychogenic polydipsia due to mental health disorder. He is power of assistant attorney general/caregiver states that she is getting more more alarmed about his deteriorating bipolar status. He has appropriate mental health providers and she will need to follow-up with them. I explained to her that while we can take care of his medical problems, his psychiatric health has to be addressed by mental health care. Temperature is 36.7. Heart rate 79. Blood pressure 133/76. Respirations 18. 100% on room air. He has a flat affect. Perseverating and repetitive. "I want to go home". But he was cooperative. Alert. Reinstructed on free water restriction for he and his caregiver. Lungs are clear. Regular rate and rhythm. Walking in his room. Feeding himself. Again, free water restriction discussed. I have also explained to her that she may just want to consider giving him only 3, 500 cc, containers all day long of all of his fluids. She asked if she could take one of the hospital containers with her for measurement and I said she could. - ALLERGIES Allergies/Adverse Reactions: Allergies Allergy/AdvReac Type Severity Reaction Status Date / Time diphenhydramine Allergy Respiratory Verified 11/05/21 14:25 [From Benadryl] codeine AdvReac Edema Verified 11/05/21 14:25 hydrocodone [From Vicodin] AdvReac Emesis Verified 11/05/21 14:25 - MEDICATIONS Home Medications: Ambulatory Orders Medication Instructions Recorded Confirmed Albuterol Sulf [Ventolin Hfa 2 puffs INH DAILY PRN 02/16/17 11/06/21 Inhaler] Furosemide 20 mg PO DAILY 12/23/18 11/06/21 Atorvastatin [Lipitor] 10 mg ORAL DAILY 11/29/19 11/06/21 Cariprazine HCl [Vraylar] 3 mg PO DAILY 07/06/21 11/06/21 Cyclobenzaprine [Flexeril] 10 mg PO DAILY PRN 07/07/21 11/06/21 Propranolol [Inderal] 80 mg PO BID 07/07/21 11/06/21 Trazodone HCl 100 mg PO QPM PRN 07/07/21 11/06/21 Fluoxetine HCl [Prozac] 40 mg PO DAILY 11/04/21 11/06/21 OXcarbazepine [Trileptal] 1,200 mg PO QPM 11/04/21 11/06/21 OXcarbazepine [Trileptal] 600 mg PO DAILY 11/04/21 11/06/21 Tamsulosin [Flomax] 0.4 mg PO DAILY 11/04/21 11/06/21 clonazePAM [Klonopin] 1 mg PO BID 11/04/21 11/06/21 Quetiapine Fumarate [Seroquel] 200 mg PO BID 11/06/21 11/06/21 - LABS Result Diagrams: 11/04/21 11:00 11/05/21 05:29
== END 2021-11-05 11:20 | disposition home or self-care (01) ==
LOC: ED 10:30 → MS2 13:08
PROVIDERS: ADMIT Specialist; ATTEND Specialist
DX: E87.1 Hypo-osmolality and hyponatremia (principal); R63.1 Polydipsia; E74.39 Other disorders of intestinal carbohydrate absorption; F31.61 Bipolar disorder, current episode mixed, mild; I10 Essential (primary) hypertension; I48.91 Unspecified atrial fibrillation; E78.00 Pure hypercholesterolemia, unspecified; L84 Corns and callosities; L97.429 Non-pressure chronic ulcer of left heel and midfoot with unspecified severity; J44.9 Chronic obstructive pulmonary disease, unspecified; K21.9 Gastro-esophageal reflux disease without esophagitis; K58.9 Irritable bowel syndrome, unspecified; F41.9 Anxiety disorder, unspecified; M19.90 Unspecified osteoarthritis, unspecified site; M54.9 Dorsalgia, unspecified; M79.7 Fibromyalgia; G89.29 Other chronic pain; R35.0 Frequency of micturition; R39.15 Urgency of urination; R41.82 Altered mental status, unspecified; R60.0 Localized edema; Z79.899 Other long term (current) drug therapy; Z87.440 Personal history of urinary (tract) infections; Z88.5 Allergy status to narcotic agent; Z88.8 Allergy status to other drugs, medicaments and biological substances; Z96.659 Presence of unspecified artificial knee joint
CPT/HCPCS: 36415; 70450; 71045; 80048; 80053; 84300; 85025; 93005; 96360; 96361; 99281; 99285; A9270; G0378

== ENCOUNTER 2021-11-05 13:47 | Outpatient (CLI) | payer MEDICARE, MEDICAID | END 2021-11-05 13:48 | disposition critical access hospital (66) | LOC: EMS 13:47 | DX: R45.851 Suicidal ideations (principal) | CPT/HCPCS: A0425; A0429 ==

== ENCOUNTER 2021-11-05 14:01 | Inpatient (IN) | payer MEDICARE, MEDICAID ==
[2021-11-05] MEDS ORDERED: SODIUM CHLORIDE 0.9% 1,000 ML IV STA (14:21)
[2021-11-05] MEDS ORDERED: NALOXONE 0.4 MG/ML VIAL IVP STA (14:22)
--- NOTE | 2021-11-05 14:26 | ED Physician Documentation ---
History of Present Illness - Stated complaint Stated Complaint: MHE - History obtained from History obtained from: EMS - Additonal information Additional information: 56-year-old gentleman with history of bipolar disorder and psychogenic gopal ydipsia was released from the hospital just this morning after a 1 day stay for hyponatremia. Reportedly EMS was called and he was acting bipolar, hypersexual and agitated, on arrival here I was called into the room by the nurse because he had fairly suddenly become obtunded. No history is available from the patient because of altered mental status. I did speak with Dr. Fulton after my evaluati on who said that he was acting well on discharge sitting up and eating. He had some OCD type behaviors and it was noted by his caregiver that they thought his bipolar was getting worse. Review of Systems Unable to obtain: Confused PD PAST MEDICAL HISTORY - Past Medical History Cardiovascular: Hypertension, High cholesterol, Atrial fibrillation, Other (Chronic lower extremity edema with chronic left plantar callus/ulcer) Respiratory: COPD Neuro: Headaches Endocrine/Autoimmune: None GI: GERD, Other (Irritable bowel bowel syndrome) : Other (Chronic urgency/frequency with history of UTI) HEENT: Other (Chronic bruxism with TMJ pain) Psych: Depression, Anxiety, Bipolar disorder Musculoskeletal: Osteoarthritis, Fibromyalgia, Chronic back pain Derm: None - Past Surgical History Past Surgical History: Yes Ortho: Knee replacement, Arthroscopic surgery, Spine surgery, Other - Present Medications Home Medications: Ambulatory Orders Medication Instructions Recorded Confirmed Albuterol Sulf [Ventolin Hfa 2 puffs INH DAILY PRN 02/16/17 11/04/21 Inhaler] Furosemide 20 mg PO DAILY 12/23/18 11/04/21 Atorvastatin [Lipitor] 10 mg ORAL DAILY 11/29/19 11/04/21 Cariprazine HCl [Vraylar] 3 mg PO DAILY 07/06/21 11/04/21 Cyclobenzaprine [Flexeril] 10 mg PO DAILY PRN 07/07/21 11/04/21 Propranolol [Inderal] 80 mg PO BID 07/07/21 11/04/21 Trazodone HCl 100 mg PO QPM PRN 07/07/21 11/04/21 Fluoxetine HCl [Prozac] 40 mg PO DAILY 11/04/21 11/05/21 OXcarbazepine [Trileptal] 1,200 mg PO QPM 11/04/21 11/04/21 OXcarbazepine [Trileptal] 600 mg PO DAILY 11/04/21 11/04/21 Tamsulosin [Flomax] 0.4 mg PO DAILY 11/04/21 11/04/21 clonazePAM [Klonopin] 1 mg PO BID 11/04/21 11/05/21 - Allergies Allergies/Adverse Reactions: Allergies Allergy/AdvReac Type Severity Reaction Status Date / Time diphenhydramine Allergy Respiratory Verified 11/05/21 14:25 [From Benadryl] codeine AdvReac Edema Verified 11/05/21 14:25 hydrocodone [From Vicodin] AdvReac Emesis Verified 11/05/21 14:25 - Social History Does the pt smoke?: No Smoking Status: Never smoker Does the pt drink ETOH?: No Does the pt have substance abuse?: Yes - Immunizations Immunizations are current?: Yes - POLST Patient has POLST: No POLST Status: Full Code PD ED PE NORMAL - Vitals Vital signs reviewed: Yes - General General: Other (He is sweaty, he is arousable, but difficult to do so. He knows where he is and his name but not recent events.) - HEENT HEENT: EOMI, Moist mucous membranes, Other (Small pupils) - Neck Neck: Supple, no meningeal sign, No bony TTP - Cardiac Cardiac: Other (Quite tachycardic and regular without murmur) - Respiratory Respiratory: No respiratory distress, Clear bilaterally - Abdomen Abdomen: Normal bowel sounds, Soft, Non tender - Back Back: No CVA TTP, No spinal TTP - Derm Derm: Other (Sweaty) - Extremities Extremities: No edema, No calf tenderness / cord - Neuro Neuro: Other (Lower extremities reflexes are without clonus or significant hyperreflexia.) Eye Opening: To Voice Motor: Obeys Commands Verbal: Confused GCS Score: 13 Results - Vitals Vitals: Vital Signs - 24 hr 11/05/21 11/05/21 11/05/21 14:20 14:25 15:46 Temperature 36.9 C Heart Rate 137 H 135 H 142 H Respiratory 20 16 19 Rate Blood Pressure 88/60 L 86/50 L 157/89 H O2 Saturation 100 98 97 11/05/21 11/05/21 16:00 16:30 Temperature Heart Rate 137 H 109 H Respiratory 17 20 Rate Blood Pressure 157/89 H 91/61 O2 Saturation 97 93 Oxygen O2 Source Room air - EKG (time done) 1417 Rate: Rate (enter#) (137) Rhythm: Other (Exquisitely regular supraventricular tachycardia. EKG read is as sinus, might be too regular for sinus tach.) Intervals: RBBB Ischemia: ST depression (Lateral ST depression) - Labs Labs: Laboratory Tests 11/05/21 11/05/21 11/05/21 14:35 14:35 14:35 WBC 5.0 RBC 5.19 Hgb 16.3 Hct 44.3 MCV 85.4 MCH 31.4 H MCHC 36.8 H RDW 11.9 L Plt Count 145 MPV 8.9 Neut # (Auto) 3.7 Lymph # (Auto) 0.7 L Dupage # (Auto) 0.5 Eos # (Auto) 0.0 Baso # (Auto) 0.0 Absolute Nucleated RBC 0.00 Nucleated RBC % 0.0 VBG pH VBG pCO2 VBG pO2 VBG HCO3 VBG Total CO2 VBG O2 Saturation VBG Base Excess Sodium 133 L Potassium 3.9 Chloride 100 L Carbon Dioxide 22 Anion Gap 11.0 BUN 14 Creatinine 1.0 Estimated GFR (MDRD) 77 L Glucose 133 H Lactic Acid Calcium 9.8 Phosphorus 4.3 Magnesium 2.1 Total Bilirubin 0.9 AST 20 ALT 19 Alkaline Phosphatase 92 Total Protein 7.5 Albumin 4.6 Globulin 2.9 Albumin/Globulin Ratio 1.6 Lipase 40 TSH 2.28 Urine Color Urine Clarity Urine pH Ur Specific [place] Urine Protein Urine Glucose (UA) Urine Ketones Urine Occult Blood Urine Nitrite Urine Bilirubin Urine Urobilinogen Ur Leukocyte Esterase Urine RBC Urine WBC Ur Squamous Epith Cells Amorphous Sediment Urine Bacteria Urine Casts Urine Mucus Ur Microscopic Review Urine Culture Comments Salicylates < 6.0 Urine Opiates Screen Ur Oxycodone Screen Urine Methadone Screen Ur Propoxyphene Screen Acetaminophen < 10 L Ur Barbiturates Screen Ur Tricyclics Screen Ur Phencyclidine Scrn Ur Amphetamine Screen U Methamphetamines Scrn U Benzodiazepines Scrn Urine Cocaine Screen U Cannabinoids Screen Ethyl Alcohol < 5.0 11/05/21 11/05/21 11/05/21 14:35 14:35 15:36 WBC RBC Hgb Hct MCV MCH MCHC RDW Plt Count MPV Neut # (Auto) Lymph # (Auto) [place] # (Auto) Eos # (Auto) Baso # (Auto) Absolute Nucleated RBC Nucleated RBC % VBG pH 7.438 H VBG pCO2 34.5 L VBG pO2 45.5 VBG HCO3 22.8 L VBG Total CO2 23.9 L VBG O2 Saturation 83.6 H VBG Base Excess -0.6 Sodium Potassium Chloride Carbon Dioxide Anion Gap BUN Creatinine Estimated GFR (MDRD) Glucose Lactic Acid 1.4 Calcium Phosphorus Magnesium Total Bilirubin AST ALT Alkaline Phosphatase Total Protein Albumin Globulin Albumin/Globulin Ratio Lipase TSH Urine Color YELLOW Urine Clarity HAZY Urine pH 7.5 Ur Specific [place] 1.020 Urine Protein 30 H Urine Glucose (UA) NEGATIVE Urine Ketones TRACE Urine Occult Blood TRACE-INTA Urine Nitrite NEGATIVE Urine Bilirubin NEGATIVE Urine Urobilinogen 0.2 (NORMAL) Ur Leukocyte Esterase NEGATIVE Urine RBC 0-5 Urine WBC 4-5 Ur Squamous Epith Cells RARE Squamous Amorphous Sediment Few Urine Bacteria Rare Urine Casts 0-2 WBC Casts Urine Mucus Few Strands Ur Microscopic Review INDICATED Urine Culture Comments NOT INDICATED Salicylates Urine Opiates Screen NEGATIVE Ur Oxycodone Screen NEGATIVE Urine Methadone Screen NEGATIVE Ur Propoxyphene Screen NEGATIVE Acetaminophen Ur Barbiturates Screen NEGATIVE Ur Tricyclics Screen POSITIVE H Ur Phencyclidine Scrn NEGATIVE Ur Amphetamine Screen NEGATIVE U Methamphetamines Scrn NEGATIVE U Benzodiazepines Scrn POSITIVE H Urine Cocaine Screen NEGATIVE U Cannabinoids Screen NEGATIVE Ethyl Alcohol - Rads (name of study) Single view chest x-ray and CT of the head are unremarkable Radiology: EMP read contemporaneously PD MEDICAL DECISION MAKING - ED course ED course: 56-year-old gentleman who was just discharged from the hospital for modest hyponatremia admitted 125 and going home at 129 sodium level. Now presents brought in [facility] originally for mental health evaluation for worsening bipolar symptoms, but on arrival became lethargic and quite tachycardic. On the monitor and on EKG and he is in exquisitely regular tachycardia. I was not convinced this was sinus tachycardia so he was given 6 mg of adenosine which resulted in no pauses or changes in his rhythm. He was given IV fluids and a trial of Narcan. Reportedly per knitting machine operator helper there was a lot of alcohol on scene but he is not a drinker. There is no drug paraphernalia. Spoke with family, Aunt. Recent increase in religiousness and statements like "I am going to soon." No suicidal statements. Increase in agression today. He remained altered here and I discussed with his family. It is not his baseline and they feel it is mostly due to his bipolar disorder. That said he is persistently tachycardic here so will need some observation time in the hospital before switching to more of a psychiatric focus. Dr. Fulton will admit. Departure - Departure Disposition: ED Place in Observation Clinical Impression: Bipolar disorder, Tachycardia Altered mental status Qualifiers: Altered mental status type: somnolence Qualified Code(s): R40.0 - Somnolence Condition: Serious Discharge Date/Time: 11/05/21 17:29
[2021-11-05] MEDS ORDERED: ADENOSINE 6 MG/2 ML VIAL IVP STA (14:27)
[2021-11-05 14:42] LABS: VBG BASE EXCESS -0.6 mmol/L (-2 - +2); VBG HCO3 22.8 mmol/L (23-28); VBG OXYGEN SATURATION 83.6 % (60-80); VBG PCO2 34.5 mmHg (41-51); VBG PH 7.438 (7.31-7.41); VBG PO2 45.5 mmHg (25-47); VBG TOTAL CO2 23.9 mmol/L (24-29)
[2021-11-05 14:43] LABS: BASOPHILS % (AUTO) 0.2 %; EOSINOPHILS % (AUTO) 0.4 %; HCT - HEMATOCRIT 44.3 % (42.0-52.0); HGB - HEMOGLOBIN 16.3 g/dL (14.0-18.0); LYMPHOCYTES # (AUTO) 0.7 10^3/uL (1.5-3.5); LYMPHOCYTES % (AUTO) 13.9 %; MEAN CORPUSCULAR HEMOGLOBIN 31.4 pg (27.0-31.0); MEAN CORPUSCULAR HGB CONC 36.8 g/dL (32.0-36.0); MEAN CORPUSCULAR VOLUME 85.4 fL (80.0-94.0); MEAN PLATELET VOLUME 8.9 fL (7.4-11.4); MONOCYTES # (AUTO) 0.5 10^3/uL (0.0-1.0); MONOCYTES % (AUTO) 10.4 %; NEUTROPHILS # (AUTO) 3.7 10^3/uL (1.5-6.6); NEUTROPHILS % (AUTO) 74.7 %; PLT - PLATELET COUNT 145 10^3/uL (130-450); RED BLOOD COUNT 5.19 10^6/uL (4.70-6.10); RED CELL DISTRIBUTION WIDTH 11.9 % (12.0-15.0)
[2021-11-05 14:58] LABS: ACETAMINOPHEN < 10 ug/mL (10-30); ALBUMIN 4.6 g/dL (3.2-5.5); ALBUMIN/GLOBULIN RATIO 1.6 (1.0-2.2); ALKALINE PHOSPHATASE 92 IU/L (42-121); ALT ALANINE AMINOTRANSFERASE 19 IU/L (10-60); AST ASPARTATE AMINOTRANSFERASE 20 IU/L (10-42); BILIRUBIN,TOTAL 0.9 mg/dL (0.2-1.0); BUN - BLOOD UREA NITROGEN 14 mg/dL (6-20); CALCIUM 9.8 mg/dL (8.5-10.3); CARBON DIOXIDE - CO2 22 mmol/L (21-32); CHLORIDE 100 mmol/L (101-111); ETOH - ETHANOL < 5.0 mg/dL; GFR - MDRD 77 (>89); GLUCOSE 133 mg/dL (70-100); LIPASE 40 U/L (22-51); MAGNESIUM 2.1 mg/dL (1.7-2.8); PHOSPHORUS 4.3 mg/dL (2.5-4.6); POTASSIUM 3.9 mmol/L (3.5-5.0); SALICYLATE < 6.0 mg/dL; SODIUM 133 mmol/L (135-145); TOTAL PROTEIN 7.5 g/dL (6.7-8.2)
--- NOTE | 2021-11-05 15:13 | XRAY Report ---
PROCEDURE: Chest 1 View X-Ray INDICATIONS: ams TECHNIQUE: One view of the chest was acquired. COMPARISON: 11/04/2021 FINDINGS: Surgical changes and devices: None. Lungs and pleura: No pleural effusions or pneumothorax. Lungs are clear. Mediastinum: Mediastinal contours appear normal. Heart size is normal. Bones and chest wall: No suspicious bony lesions. Overlying soft tissues appear unremarkable. IMPRESSION: No acute cardiopulmonary pathology. Reviewed by: Darrel Abel MD on 11/05/2021 3:12 PM PDT Approved by: Darrel Abel MD on 11/05/2021 3:12 PM PDT Station ID: [id number]
--- NOTE | 2021-11-05 15:39 | CT Report ---
PROCEDURE: HEAD WO INDICATIONS: Altered mental status TECHNIQUE: Noncontrast 4.5 mm thick angled axial sections acquired from the foramen magnum to the vertex. For r adiation dose reduction, the following was used: automated exposure control, adjustment of mA and/or kV according to patient size. COMPARISON: 11/04/[address] FINDINGS: Image quality: Excellent. CSF spaces: Basal cisterns are patent. No extra-axial fluid collections. Ventricles are normal in size and shape. Brain: No midline shift. No intracranial masses or hemorrhage. Kamara-white matter interface is norm al. Skull and face: Calvarium and visualized facial bones are intact, without suspicious lesions. Sinuses: Visualized sinuses and mastoids are clear. IMPRESSION: No acute intracranial finding. Reviewed by: Moises Garcia MD on 11/05/2021 3:37 PM PDT Approved by: Moises Garcia MD on 11/05/2021 3:37 PM PDT Station ID: [id number]
[2021-11-05 15:40] LABS: MUDS CUTOFF CONCENTRATIONS CUTOFF CONC BELOW:
[2021-11-05 15:42] LABS: BILIRUBIN,URINE NEGATIVE (NEGATIVE); GLUCOSE, URINE (UA) NEGATIVE (NEGATIVE); KETONES,URINE (UA) TRACE mg/dL (NEGATIVE); LEUKOCYTE ESTERASE, URINE NEGATIVE (NEGATIVE); NITRITE,URINE NEGATIVE (NEGATIVE); OCCULT BLOOD,URINE TRACE-INTA (NEGATIVE); PH,URINE 7.5 PH (5.0-7.5); PROTEIN,URINE 30 mg/dL (NEGATIVE); UROBILINOGEN,URINE 0.2 (NORMAL) E.U./dL (NORMAL)
[2021-11-05 15:43] LABS: CLARITY,URINE HAZY (CLEAR)
[2021-11-05 15:53] LABS: AMORPHOUS SEDIMENT,UR Few /LPF; BACTERIA,URINE Rare /HPF (None Seen); MUCUS,URINE Few Strands; RBC,URINE 0-5 /HPF (0-5); SQUAMOUS EPITHELIAL CELL,UR RARE Squamous (<= Few)
[2021-11-05 15:54] LABS: AMPHETAMINE SCREEN,URINE NEGATIVE (NEGATIVE); BARBITURATE SCREEN,UR NEGATIVE (NEGATIVE); BENZODIAZEPINES SCREEN, URINE POSITIVE (NEGATIVE); COCAINE SCREEN URINE NEGATIVE (NEGATIVE); METHADONE SCREEN, URINE NEGATIVE (NEGATIVE); METHAMPHETAMINES SCREEN, URINE NEGATIVE (NEGATIVE); OPIATE SCREEN, URINE NEGATIVE (NEGATIVE); OXYCODONE SCREEN, URINE NEGATIVE (NEGATIVE); PROPOXYPHENE SCREEN, URINE NEGATIVE (NEGATIVE); THC CANNABINOID SCREEN, URINE NEGATIVE (NEGATIVE); TRICYCLIC ANTIDEPRESSANT,URINE POSITIVE (NEGATIVE)
[2021-11-05] MEDS ORDERED: PROPRANOLOL 10 MG TABLET PO STA (16:30)
[2021-11-05] MEDS ORDERED: ACETAMINOPHEN 325 MG TABLET PO PRN (16:38)
[2021-11-05] MEDS ORDERED: ONDANSETRON 4 MG/2 ML VIAL IVP PRN (16:38)
[2021-11-05] MEDS ORDERED: oxyCODONE 5 MG TABLET PO PRN (16:38)
[2021-11-05] MEDS ORDERED: ONDANSETRON ODT 4 MG TABLET TL PRN (16:38)
[2021-11-05] MEDS ORDERED: SODIUM CHLORIDE FLUSH 0.9% 10 ML SYRINGE IVP PRN (16:38)
--- NOTE | 2021-11-05 17:08 | HISTORY & PHYSICAL EXAMINATION ---
Chief Complaint - Chief Complaint Chief Complaint: confusion History of Present Illness - Admitted From Admitted From:: home - History Obtained From Records Reviewed: medtie History obtained from: Dr. Najera Exam Limitations: confusion - History of Present Illness HPI Comment/Other: This is a 56-year-old white male who has a bipolar disorder. 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 When his sodium went to 125 on October 26, it took a few days for his primary care provider to finally reach him to call him with the results. He was called yesterday. Sent to the emergency room. Sodium was 125. He was placed in observation overnight and sodium was 129 at discharge after liter of normal saline. Patient was alert, oriented. It is noted that he is perseverating, delusional, and has been getting steadily worse over the last few weeks according to his caregiver that lives with him. Yesterday he kept on stating that his brain was "foggy" but he was alert, oriented. Suspicious of my conversation with his caregiver but alert, cooperative. He kept on asking when he could go home repeatedly. After discharge today, he disappeared into the bathroom. Caregiver states she does know what he was doing and when he came out he has been emotionally labile, hypersexual, agitated. EMS was called. He was brought to the emergency room we had sudden obtundation in the emergency room [facility]. This was a complete change from yesterday and even this morning. Temperature was 36.9. Heart rate 137. Blood pressure 88/60. Respirations 20. 100% on room air. He was tachycardic, diaphoretic, pale and not responding. But clear lungs and a benign belly. Sodium was 133, potassium 3.9. Lactic acid 1.4. Random glucose 133. TSH 2.28. White cell count was normal. Hemoglobin normal. Urinalysis had some proteinuria but was otherwise unremarkable. Toxicology was negative for salicylates, acetaminophen, ethyl alcohol. He was positive for tricyclics and positive for benzodiazepines. His medication list includes cariprazine, Trile ptal, fluoxetine, and clonazepam. He received Narcan and a liter wide open in the emergency room. He also received propranolol 80 mg. Because the ER MD was not sure if this was an SVT he also received adenosine. There is no response to the tachycardia with these medications and he continues to be tachycardic at about 140-135. His head CT was negative for acute intracranial changes. And chest x-ray had no acute cardiopulmonary activity. Because he is still confused, waxing and waning alertness, we have been asked to place him in observation status. History - Past Medical History Cardiovascular: reports: Hypertension, High cholesterol, Atrial fibrillation, Other (Chronic lower extremity edema with chronic left plantar callus/ulcer) Respiratory: reports: COPD Neuro: reports: Headaches Endocrine/Autoimmune: reports: None GI: reports: GERD, Other (Irritable bowel bowel syndrome) : reports: Other (Chronic urgency/frequency with history of UTI) HEENT: reports: Other (Chronic bruxism with TMJ pain) Psych: reports: Depression, Anxiety, Bipolar disorder Musculoskeletal: reports: Osteoarthritis, Fibromyalgia, Chronic back pain Derm: reports: None MRSA Hx?: No - Past Surgical History Ortho: reports: Knee replacement, Arthroscopic surgery, Spine surgery, Other - Family & Social History Family History Comment/Other: He reports his father from brain tumor in the last year. Mom is alive and in [facility] and healthy as far as they know x for undiagnosed mental illness. 1 brother but not in contact with him. No children. Reports no other medical history to his knowledge. 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 He does not smoke and does not drink alcohol. He was fairly functional and working up until about 25 years ago when he had his mental breakdown. Continue to live with his mother and father in [place]. It was not a healthy relationship according to the caregiver. He came up here to [facility] for few months to be with his aunt and was visiting her while her daughter was in active duty. He went back down to [place] for a year and then came back up here to house it. He never went back. That was around 2016. - Substance History Use: Uses substance without health or social issues: NONE - POLST Patient has POLST: No POLST Status: Full Code Meds/Allgy - Home Medications Home Medications: Ambulatory Orders Medication Instructions Recorded Confirmed Albuterol Sulf [Ventolin Hfa 2 puffs INH DAILY PRN 02/16/17 11/04/21 Inhaler] Furosemide 20 mg PO DAILY 12/23/18 11/04/21 Atorvastatin [Lipitor] 10 mg ORAL DAILY 11/29/19 11/04/21 Cariprazine HCl [Vraylar] 3 mg PO DAILY 07/06/21 11/04/21 Cyclobenzaprine [Flexeril] 10 mg PO DAILY PRN 07/07/21 11/04/21 Propranolol [Inderal] 80 mg PO BID 07/07/21 11/04/21 Trazodone HCl 100 mg PO QPM PRN 07/07/21 11/04/21 Fluoxetine HCl [Prozac] 40 mg PO DAILY 11/04/21 11/05/21 OXcarbazepine [Trileptal] 1,200 mg PO QPM 11/04/21 11/04/21 OXcarbazepine [Trileptal] 600 mg PO DAILY 11/04/21 11/04/21 Tamsulosin [Flomax] 0.4 mg PO DAILY 11/04/21 11/04/21 clonazePAM [Klonopin] 1 mg PO BID 11/04/21 11/05/21 - Allergies Allergies/Adverse Reactions: Allergies Allergy/AdvReac Type Severity Reaction Status Date / Time diphenhydramine Allergy Respiratory Verified 11/05/21 14:25 [From Benadryl] codeine AdvReac Edema Verified 11/05/21 14:25 hydrocodone [From Vicodin] AdvReac Emesis Verified 11/05/21 14:25 Review of Systems - Other Findings Other Findings: He is unable to provide a review of systems as he did yesterday. He is only been out of the hospital less than 12 hours. Prior Level of Functionality: He is able to dress himself, feed himself. But his caregivers are the people that drive him places, take him to his appointments. 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 Cognitively he is not able to do much more than this. Exam - Vital Signs Vital Signs: Vital Signs x48h Temp Pulse Resp BP Pulse Ox 11/05/21 16:00 137 H 17 157/89 H 97 11/05/21 15:46 142 H 19 157/89 H 97 11/05/21 14:25 135 H 16 86/50 L 98 11/05/21 14:20 36.9 C 137 H 20 88/60 L 100 Conclusion/Plan - Problem List (1) Altered mental status Conclusion/Plan: With diaphoresis. Obtundation that was sudden. He is not cyanotic, he does not have a low respiratory rate nor is he bradycardic. He is not on any opioids that we can see on tox screen or medication list. There is no ptosis, and both pupils are pinpoint not just 1. The change in pupils is not accompanied by any eye pain or red eye. He is not had any head injury and a CT is negative. As far as we know he is not had any exposure to pesticides and there is no excessive saliva, or retching. Trileptal overdose would cause him to be sedated and bradycardic and hypotensive. His antipsychotic, Vraylar, would cause extraparametal symptoms, slurred speech, akathisia and restlessness. It can cause neuroleptic malignant syndrome with high fevers, confusion, sweating. Overdoses can cause LOG RAFT WORKER depression, orthostatic hypotension, sinus tachycardia, prolonged QT.His QRS was 152 ms yesterday, is 135 ms today. At this time his caregiver cannot state whether he takes his medications appropriately or that he take too many. We do not think he has an infection. He is not having an [place]. Lactic acid is normal. Plan: Continue observation status, telemetry, watch for QT prolongation and will check an EKG in the morning Qualifiers: Altered mental status type: somnolence Qualified Code(s): R40.0 - Somnolence (2) Psychogenic polydipsia Conclusion/Plan: By history and description from his caregiver. He responded to normal saline yesterday, with fluid restriction. We will continue normal saline drip. And monitor sodium regularly. - Lab Results Lab results reviewed: Yes Fish Bones: 11/05/21 14:35 11/05/21 14:35 - Diagnostic Imaging Results Diagnostic Imaging Results: positive: Final report reviewed Diagnostic Imaging Results Comments: Chest x-ray without acute cardiopulmonary pathology. Head CT without acute intracranial abnormalities. - EKG Results EKG Interpreted Independently: No
[2021-11-05] MEDS: SODIUM CHLORIDE 0.9% 1,000 ML IV SCH (17:51)
[2021-11-05] MEDS: SODIUM CHLORIDE FLUSH 0.9% 10 ML SYRINGE IVP SCH (17:51)
[2021-11-05 18:13] LABS: B. PARAPERTUSSIS- RESP PCR PAN NOT DETECTED; B. PERTUSSIS- RESP PCR PANEL NOT DETECTED; C. PNEUMONIAE- RESP PCR PANEL NOT DETECTED; CORONAVIRUS 229E-RESP PCR NOT DETECTED; CORONAVIRUS HKU1-RESP PCR NOT DETECTED; CORONAVIRUS NL63-RESP PCR NOT DETECTED; CORONAVIRUS OC43-RESP PCR NOT DETECTED; HUMAN METAPNEUMOVIRUS NOT DETECTED; INFLUENZA A- RESP PCR PANEL NOT DETECTED; INFLUENZA B - RESP PCR PANEL NOT DETECTED; M. PNEUMONIAE- RESP PCR PANEL NOT DETECTED; PARAINFLUENZA VIRUS 1 NOT DETECTED; PARAINFLUENZA VIRUS 2 NOT DETECTED; PARAINFLUENZA VIRUS 3 NOT DETECTED; PARAINFLUENZA VIRUS 4 NOT DETECTED; RHINOVIRUS/ENTEROVIRUS NOT DETECTED; RSV- RESP PCR PANEL NOT DETECTED; SARS-CoV-2 -RESP PCR PANEL NOT DETECTED
[2021-11-05] MEDS ORDERED: LACTATED RINGERS 1,000 ML IV ONE ×2 (20:10→22:54)
[2021-11-05] MEDS ORDERED: SODIUM BICARBONATE ABBOJECT 50 MEQ/50 ML SYRINGE IVP ONE (23:24)
--- NOTE | 2021-11-05 23:29 | PROVIDER PROGRESS NOTE ---
Hospitalist Cross-cover Note - Cross-Cover Note Cross-Cover Note: The patient has admitted to consuming 20 tablets of Seroquel shortly after discharge. He told his nurse that this was a suicide attempt. I did speak with poison control regarding the Seroquel overdose. They recommended repeating an EKG to monitor the QRS and QTc. If his QRS greater than 120 they recommended a sodium bicarbonate push. If his QTC is greater than 500 they recommended optimizing electrolytes including magnesium. They stated that Seroquel can cause transient hypotension but this should respond to IV fluids. They suspect this was extended release Seroquel then he will need to be observed for at least 12 hours but if this was intermediate release and then he will need to be observed for only 6 hours. He has already shown evidence of improvement of his cognition. We will give him a liter of lactated Ringer's given he has been borderline hypotensive. EKG obtained showed a sinus rhythm with a QRS of 140 but he does have a right bundle branch block which is not new. I compared this to prior EKGs and his QRS is lower than usual and therefore we will not give him a sodium bicarbonate push. We will continue to monitor him on telemetry. We will place him on one-to-one observation given he admitted to suicidal thoughts.
[2021-11-06] MEDS: SODIUM CHLORIDE FLUSH 0.9% 10 ML SYRINGE IVP SCH ×3 (01:00→18:08)
[2021-11-06] MEDS: SODIUM CHLORIDE 0.9% 1,000 ML IV SCH (03:45)
[2021-11-06 06:04] LABS: CREATININE 0.8 mg/dL (0.6-1.2)
[2021-11-06] MEDS: ENOXAPARIN 40 MG/0.4 ML SYRINGE SUBQ SCH (09:53)
[2021-11-07] MEDS: SODIUM CHLORIDE FLUSH 0.9% 10 ML SYRINGE IVP SCH ×4 (06:38→21:28)
[2021-11-07] MEDS: ENOXAPARIN 40 MG/0.4 ML SYRINGE SUBQ SCH (08:07)
[2021-11-07] MEDS ORDERED: CYCLOBENZAPRINE 10 MG TABLET PO PRN (13:11)
[2021-11-07] MEDS ORDERED: traZODone 50 MG TABLET PO PRN (13:30)
[2021-11-07] MEDS: clonazePAM 0.5 MG TABLET PO SCH ×3 (13:57→21:21)
--- NOTE | 2021-11-07 14:40 | PHARMACY PROGRESS NOTE ---
- Best Possible Medication History Admit Date and Time: 11/05/21 1638 Processed by: Pharmacy Medication History completed: Yes Patient Interview: Pt unable to participate Secondary Source(s): Physician records, Pharmacy records, Insurance records As the person ultimately responsible for medication therapy, providers are able to order a medication from an existing home medication list in [facility] via the "Reconcile Routine" prior to Confirmation of that medication by product support analyst. Such practice is discouraged except when the physician, in their clinical judgment, deems that a medical need exists for a medication without regard to previous use.
--- NOTE | 2021-11-07 18:33 | PROVIDER PROGRESS NOTE ---
Progress Note November 07, 2021 6:29 PM The patient was medically cleared yesterday afternoon. We have been awaiting a bed at [facility]. They accepted him and we are now awaiting the bed. During the course of the day he is in one-to-one. He is unhappy to be here. He wants to go home. The one-to-one supervision cannot be done in the room. The aide is sitting in the doorway just outside the room to watch him because he does not want anyone in the room with him. He continues to state that he wishes he was . Temperature is 37.4. Heart rate 71. Blood pressure 153/81. Respirations 16. 100% on room air. 5 foot 7 inch white male. 81 kg Supple neck no adenopathy Clear lungs no respiratory distress Regular rate and rhythm Abdomen soft, nontender, normal bowel sounds he is eating his meals Extremities without edema Fixated on ideas, fixated that it is time for him to , and overall agitated, restless. November 06 labs are completely normal. CK 47 Assessment/plan 1. Intentional drug overdose with Seroquel. He was admitted with emotionally labile behavior, then sudden obtundation. Tachycardia, pinpoint pupils. Drug screen was negative. When he woke up the next day, he was able to tell us that he intentionally tried to kill himself with Seroquel. He continues to have suicidal ideation. He was seen by DCR. Involuntary hold. To be transferred to a inpatient psych facility. He was accepted yesterday November 06 and we are awaiting a bed. No change in plan to transfer 2. Bipolar disorder with severe depression. I will be resuming his usual home meds. 3. History of psychogenic polydipsia. Right now we are restricting fluids. He is allowed to eat or drink but free water is restricted.
[2021-11-07] MEDS: QUEtiapine 100 MG TABLET PO SCH ×2 (21:00→21:21)
[2021-11-07] MEDS: OXcarbazepine 150 MG TABLET PO SCH ×2 (21:00→21:20)
[2021-11-07] MEDS: PROPRANOLOL 40 MG TABLET PO SCH (21:21)
[2021-11-08] MEDS: PROPRANOLOL 40 MG TABLET PO SCH ×3 (00:34→20:13)
[2021-11-08] MEDS ORDERED: TAMSULOSIN 0.4 MG CAPSULE PO SCH (09:00)
[2021-11-08] MEDS ORDERED: OXcarbazepine 150 MG TABLET PO SCH (09:00)
[2021-11-08] MEDS ORDERED: FLUoxetine 10 MG CAPSULE PO SCH (09:00)
[2021-11-08] MEDS ORDERED: FUROSEMIDE 40 MG TABLET PO SCH (09:00)
[2021-11-08] MEDS ORDERED: Cariprazine Hcl [Vraylar] 3 MG Capsule PO SCH (09:00)
[2021-11-08] MEDS: QUEtiapine 100 MG TABLET PO SCH ×2 (09:17→20:13)
[2021-11-08] MEDS: clonazePAM 0.5 MG TABLET PO SCH ×2 (09:17→20:13)
[2021-11-08] MEDS: SODIUM CHLORIDE FLUSH 0.9% 10 ML SYRINGE IVP SCH ×2 (09:18→17:05)
[2021-11-08] MEDS: ENOXAPARIN 40 MG/0.4 ML SYRINGE SUBQ SCH (09:20)
--- NOTE | 2021-11-08 17:45 | PROVIDER PROGRESS NOTE ---
Progress Note November 06, 2021 5 PM Patient is cleared. And that he is more alert. Able to tell us that he deliberately took an overdose of Seroquel. Not makes more sense that he was in the bathroom, family did not know what he was doing, was agitated labile diaphoretic in the ER and then became obtunded. Repeat EKG today shows no prolonged QT. No arrhythmias on telemetry. Temperature is 36.2. Heart rate 67. Blood pressure 137/75. Respirations 17 and is 98% on room air. He is alert and oriented to the fact that he is in the hospital. However he is delusional. Keeps on insisting that he needs to be . He is unhappy. He says life is not what he wants. But he alternates between saying he wants to kill himself versus he is already . Neck is supple. Lungs are clear to auscultation and percussion. PMI is normally placed. No further tachycardia. No further diaphoresis. Abdomen is soft, nontender with normal bowel sounds and he is eating some of his food. He is drinking all of his liquids. Alert and that he is spontaneously conversing. Does not want the one-to-one supervision in the room and as such the aide is having to sit in the hallway. He is pacing in the room. No focal deficits. Able to get up and go to the bathroom on his own. Assessment/plan 1. Intentional drug overdose with Seroquel. DCR has been in to see the patient. He is an involuntary hold. She states that [facility] bed. Hopefully he will be transferred there [facility]. 2. History of psychogenic polydipsia. Patient needs to be monitored to make sure he does not have increased water intake. 3. Bipolar disorder. We will wait 1 more day and then resume medications.
[2021-11-08] MEDS: OXcarbazepine 150 MG TABLET PO SCH (20:12)
--- NOTE | 2021-11-08 21:08 | DISCHARGE SUMMARY ---
Discharge Summary Admit Date: 11/05/21 Discharge Date: 11/08/21 Discharging Provider: Pio Rodriguez Primary Care Provider: Leana Hassan Code Status: Attempt Resuscitation Condition at Discharge: Stable Discharge Disposition: 65 Psych Hosp/Unit DC/Xfer Discharge Facility Name: [facility] - DIAGNOSES Admission Diagnoses: Altered mental status Psychogenic polydipsia Discharge Diagnoses with Status of Each Condition: Intentional drug overdose - resolved. Bipolar disorder - ongoing. Psychogenic polydipsia - stable. Hyponatremia - resolved. - HPI History of Present Illness: H&P per Dr. Fulton: This is a 56-year-old white male who has a bipolar disorder. 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 When his sodium went to 125 on October 26, it took a few days for his primary care provider to finally reach him to call him with the results. He was called yesterday. Sent to the emergency room. Sodium was 125. He was placed in observation overnight and sodium was 129 at discharge after liter of normal saline. Patient was alert, oriented. It is noted that he is perseverating, delusional, and has been getting steadily worse over the last few weeks according to his caregiver that lives with him. Yesterday he kept on stating that his brain was "foggy" but he was alert, oriented. Suspicious of my conversation with his caregiver but alert, cooperative. He kept on asking when he could go home repeatedly. After discharge today, he disappeared into the bathroom. Caregiver states she does know what he was doing and when he came out he has been emotionally labile, hypersexual, agitated. EMS was called. He was brought to the emergency room we had sudden obtundation in the emergency room [facility]. This was a complete change from yesterday and even this morning. Temperature was 36.9. Heart rate 137. Blood pressure 88/60. Respirations 20. 100% on room air. He was tachycardic, diaphoretic, pale and not responding. But clear lungs and a benign belly. Sodium was 133, potassium 3.9. Lactic acid 1.4. Random glucose 133. TSH 2.28. White cell count was normal. Hemoglobin normal. Urinalysis had some proteinuria but was otherwise unremarkable. Toxicology was negative for salicylates, acetaminophen, ethyl alcohol. He was positive for tricyclics and positive for benzodiazepines. His medication list includes cariprazine, Trileptal, fluoxetine, and clonazepam. He received Narcan and a liter wide open in the emergency room. He also received propranolol 80 mg. Because the ER MD was not sure if this was an SVT he also received adenosine. There is no response to the tachycardia with these medications and he continues to be tachycardic at about 140-135. His head CT was negative for acute intracranial changes. And chest x-ray had no acute cardiopulmonary activity. Because he is still confused, waxing and waning alertness, we have been asked to place him in observation status. - CONSULTS | PROCEDURES Consultations: Social Work, DCR - HOSPITAL COURSE Hospital Course: The patient was admitted to the floor due to altered mental status which was thought to be secondary to drug overdose although was not clear initially what the drug was. The patient was observed for a few hours and started to become more alert. He did admit to an intentional overdose on Seroquel taking at least 20 tablets of 200 mg. He informed us that this was a suicide attempt. He was hypotensive at times but responded well to IV fluids. He initially had SVT while in the emergency department but has since been in a sinus rhythm and it is felt that the SVT was likely related to the Seroquel overdose. Within 24 hours, he was no longer altered and was back to his baseline. He was evaluated by DCR and an involuntary hold was recommended. He has had ongoing suicidal ideations and has declined to take his home medications. He has also been aggressive with the staff at times verbally abusing them. On day of discharge, he is a little more cooperative. His sodium has been within normal limits after he placed him on a total fluid restriction of 1.8 L which he recommended continuing as he is a history of psychogenic polydipsia and has been admitted in the past due to h yponatremia. The patient was transferred to [facility] as he was graciously accepted by Dr. Jason Teixeira. - ALLERGIES Allergies/Adverse Reactions: Allergies Allergy/AdvReac Type Severity Reaction Status Date / Time diphenhydramine Allergy Respiratory Verified 11/05/21 14:25 [From Benadryl] codeine AdvReac Edema Verified 11/05/21 14:25 hydrocodone [From Vicodin] AdvReac Emesis Verified 11/05/21 14:25 - MEDICATIONS Home Medications: Ambulatory Orders Medication Instructions Recorded Confirmed Albuterol Sulf [Ventolin Hfa 2 puffs INH DAILY PRN 02/16/17 11/06/21 Inhaler] Furosemide 20 mg PO DAILY 12/23/18 11/06/21 Atorvastatin [Lipitor] 10 mg ORAL DAILY 11/29/19 11/06/21 Cariprazine HCl [Vraylar] 3 mg PO DAILY 07/06/21 11/06/21 Cyclobenzaprine [Flexeril] 10 mg PO DAILY PRN 07/07/21 11/06/21 Propranolol [Inderal] 80 mg PO BID 07/07/21 11/06/21 Trazodone HCl 100 mg PO QPM PRN 07/07/21 11/06/21 Fluoxetine HCl [Prozac] 40 mg PO DAILY 11/04/21 11/06/21 OXcarbazepine [Trileptal] 1,200 mg PO QPM 11/04/21 11/06/21 OXcarbazepine [Trileptal] 600 mg PO DAILY 11/04/21 11/06/21 Tamsulosin [Flomax] 0.4 mg PO DAILY 11/04/21 11/06/21 clonazePAM [Klonopin] 1 mg PO BID 11/04/21 11/06/21 Quetiapine Fumarate [Seroquel] 200 mg PO BID 11/06/21 11/06/21 - PHYSICAL EXAM AT DISCHARGE General Appearance: positive: No acute distress, Alert Eyes Bilateral: positive: Normal inspection, Conjunctivae nml ENT: positive: ENT inspection nml Neck: positive: Nml inspection Respiratory: positive: No respiratory distress. negative: Wheezes, Rales Cardiovascular: positive: Regular rate & rhythm, No murmur. negative: Tachycardia Abdomen: positive: Non-tender, No distention. negative: Tenderness Skin: positive: Warm, Dry Extremities: positive: No pedal edema Neurologic/Psychiatric: positive: Motor nml. negative: Disoriented to person, Disoriented to place Physical Exam Other/Comments: Vital Signs - 24 hr 11/08/21 11/08/21 07:24 15:42 Temperature 36.6 C 37 C Heart Rate [ 87 63 Brachial] Respiratory 16 17 Rate Blood Pressure 166/88 H 153/84 H [Right Brachial artery] O2 Saturation 98 99 Oxygen O2 Source Room air - LABS Result Diagrams: 11/05/21 14:35 11/06/21 05:23 - TIME SPENT Time Spent in Discharge (Minutes): 32
[2021-11-08 21:40] VITALS: BP 103/58
== END 2021-11-08 22:58 | DRG 918 ==
LOC: ED 14:01 → MS2 16:38 → OBSVTOIN 11-07 13:25
PROVIDERS: ADMIT Specialist; ATTEND Internal Medicine
DX: T43.592A Poisoning by other antipsychotics and neuroleptics, intentional self-harm, initial encounter (principal); I47.1 Supraventricular tachycardia; R45.851 Suicidal ideations; R00.0 Tachycardia, unspecified; R41.82 Altered mental status, unspecified; Y92.9 Unspecified place or not applicable; Z20.822 Contact with and (suspected) exposure to COVID-19; T50.916A Underdosing of multiple unspecified drugs, medicaments and biological substances, initial encounter; E78.00 Pure hypercholesterolemia, unspecified; Z91.128 Patient's intentional underdosing of medication regimen for other reason; Y92.238 Other place in hospital as the place of occurrence of the external cause; F31.9 Bipolar disorder, unspecified; I10 Essential (primary) hypertension; I48.91 Unspecified atrial fibrillation; J44.9 Chronic obstructive pulmonary disease, unspecified; F41.9 Anxiety disorder, unspecified; R63.1 Polydipsia; I45.10 Unspecified right bundle-branch block; I95.9 Hypotension, unspecified
CPT/HCPCS: 36415; 51701; 70450; 71045; 80048; 80053; 80306; 80307; 81001; 82550; 82803; 83605; 83690; 83735; 84100; 84443; 85025; 87040; 87633; 93005; 96361; 96374; 99281; 99285; A9270; G0378; G0480; J0153; J1650; J7120; 80320; 80329; 81003; 87086

== ENCOUNTER 2021-12-13 15:55 | Outpatient (CLI) | payer MEDICARE, MEDICAID ==
[2021-12-13 18:00] LABS: BASOPHILS % (AUTO) 0.2 %; EOSINOPHILS # (AUTO) 0.1 10^3/uL (0.0-0.7); EOSINOPHILS % (AUTO) 1.2 %; HCT - HEMATOCRIT 39.9 % (42.0-52.0); HGB - HEMOGLOBIN 13.9 g/dL (14.0-18.0); LYMPHOCYTES # (AUTO) 1.3 10^3/uL (1.5-3.5); LYMPHOCYTES % (AUTO) 15.4 %; MEAN CORPUSCULAR HEMOGLOBIN 31.2 pg (27.0-31.0); MEAN CORPUSCULAR HGB CONC 34.8 g/dL (32.0-36.0); MEAN CORPUSCULAR VOLUME 89.5 fL (80.0-94.0); MEAN PLATELET VOLUME 10.1 fL (7.4-11.4); MONOCYTES # (AUTO) 0.6 10^3/uL (0.0-1.0); NEUTROPHILS # (AUTO) 6.2 10^3/uL (1.5-6.6); PLT - PLATELET COUNT 150 10^3/uL (130-450); RED BLOOD COUNT 4.46 10^6/uL (4.70-6.10); RED CELL DISTRIBUTION WIDTH 13.4 % (12.0-15.0); WHITE BLOOD COUNT 8.2 x10^3/uL (4.8-10.8)
[2021-12-13 18:10] LABS: BILIRUBIN,URINE NEGATIVE (NEGATIVE); GLUCOSE, URINE (UA) NEGATIVE (NEGATIVE); KETONES,URINE (UA) NEGATIVE (NEGATIVE); LEUKOCYTE ESTERASE, URINE NEGATIVE (NEGATIVE); NITRITE,URINE NEGATIVE (NEGATIVE); OCCULT BLOOD,URINE NEGATIVE (NEGATIVE); PH,URINE 7.5 PH (5.0-7.5); PROTEIN,URINE NEGATIVE (NEGATIVE); UROBILINOGEN,URINE 0.2 (NORMAL) E.U./dL (NORMAL)
[2021-12-13 18:18] LABS: LITHIUM < 0.05 mmol/L
[2021-12-13 18:20] LABS: VALPROIC ACID (DEPAKOTE) 64.7 ug/mL
[2021-12-13 18:28] LABS: BACTERIA,URINE None Seen /HPF (None Seen); CLARITY,URINE CLEAR (CLEAR); RBC,URINE None Seen /HPF (0-5); SQUAMOUS EPITHELIAL CELL,UR RARE Squamous (<= Few); WBC,URINE 0-3 /HPF (0-3)
== END 2021-12-13 15:56 | disposition home or self-care (01) ==
LOC: LAB.N 15:55
PROVIDERS: ATTEND Nurse Practitioner
DX: N39.0 Urinary tract infection, site not specified (principal); F31.75 Bipolar disorder, in partial remission, most recent episode depressed; F41.1 Generalized anxiety disorder; Z79.899 Other long term (current) drug therapy
CPT/HCPCS: 36415; 80164; 80178; 81001; 82652; 85025; 87086

== ENCOUNTER 2021-12-14 20:28 | Outpatient (CLI) | payer MEDICARE, MEDICAID | END 2021-12-14 20:29 | disposition critical access hospital (66) | LOC: EMS 20:28 | DX: R45.851 Suicidal ideations (principal); R45.850 Homicidal ideations; R44.0 Auditory hallucinations | CPT/HCPCS: A0425; A0429 ==

== ENCOUNTER 2021-12-14 20:59 | Emergency (ER) | payer MEDICARE, MEDICAID ==
--- NOTE | 2021-12-14 20:44 | ED Physician Documentation ---
PD HPI MHE - Stated complaint Stated Complaint: MHE - History obtained from History obtained from: Patient, EMS - History of Present Illness Primary symptom: Suicidal ideation, Homicidal ideation, Other (command AH) Timing - onset: Chronic (became "really, really bad" (per patient) today) Contributing factors: No: Off meds, Out of meds Recently seen: Other (admitted to [facility] last month and transferred to another facility after medical stabilization (overdose of prescription medication, hyponatremia)) - Additional information Additional information: TEJAL. Patient says to me "I need to go into the psychiatric fritz". He says he has auditory hallucinations, "voices in my mind" (per patient), that are telling him to kill himself and kill his family. Review of Systems Neurologic: denies: Generalized weakness, Headache Psychiatric: reports: Suicidal, Homicidal, Hallucinations PD PAST MEDICAL HISTORY - Past Medical History Past Medical History: Yes Cardiovascular: High cholesterol - Present Medications Home Medications: Ambulatory Orders Medication Instructions Recorded Confirmed Furosemide 20 mg PO DAILY 12/23/18 12/15/21 Atorvastatin [Lipitor] 10 mg ORAL DAILY 11/29/19 12/15/21 Propranolol [Inderal] 80 mg PO BID 07/07/21 12/15/21 Trazodone HCl 200 mg PO QPM PRN 07/07/21 12/15/21 Tamsulosin [Flomax] 0.4 mg PO DAILY 11/04/21 12/15/21 Aspirin Chewable [[facility] [place] 81 mg PO DAILY 12/15/21 12/15/21 Aspirin] Divalproex ER [Depakote ER] 1,000 mg PO DAILY 12/15/21 12/15/21 Loratadine [Claritin] 10 mg PO DAILY 12/15/21 12/15/21 - Allergies Allergies/Adverse Reactions: Allergies Allergy/AdvReac Type Severity Reaction Status Date / Time diphenhydramine Allergy Respiratory Verified 12/14/21 20:47 [From Benadryl] codeine AdvReac Edema Verified 12/14/21 20:47 hydrocodone [From Vicodin] AdvReac Emesis Verified 12/14/21 20:47 PD ED PE NORMAL - Vitals Vital signs reviewed: Yes - General General: Alert and oriented X 3, No acute distress, Well developed/nourished, Other (quiet , calm, cooperative) - HEENT HEENT: Moist mucous membranes - Neck Neck: Supple, no meningeal sign - Cardiac Cardiac: RRR, No murmur - Respiratory Respiratory: No respiratory distress, Clear bilaterally - Abdomen Abdomen: Soft, Non tender - Derm Derm: Normal color, Warm and dry - Neuro Neuro: Alert and oriented X 3, No motor deficit, No sensory deficit, Normal speech Eye Opening: Spontaneous Motor: Obeys Commands Verbal: Oriented GCS Score: 15 PD ED PE EXPANDED - Psych Psych: Depressed Results - Vitals Vitals: Oxygen O2 Source Room air - Labs Labs: Laboratory Tests 12/14/21 12/14/21 12/14/21 21:00 21:00 21:03 WBC 8.8 RBC 4.48 L Hgb 14.4 Hct 39.9 L MCV 89.1 MCH 32.1 H MCHC 36.1 H RDW 13.4 Plt Count 149 MPV 9.7 Neut # (Auto) 6.1 Lymph # (Auto) 1.6 [place] # (Auto) 0.8 Eos # (Auto) 0.2 Baso # (Auto) 0.0 Absolute Nucleated RBC 0.00 Nucleated RBC % 0.0 Sodium Potassium Chloride Carbon Dioxide Anion Gap BUN Creatinine Estimated GFR (MDRD) Glucose Calcium Total Bilirubin AST ALT Alkaline Phosphatase Total Protein Albumin Globulin Albumin/Globulin Ratio Lipase TSH Urine Color YELLOW Urine Clarity CLEAR Urine pH 7.0 Ur Specific [place] 1.020 Urine Protein NEGATIVE Urine Glucose (UA) NEGATIVE Urine Ketones NEGATIVE Urine Occult Blood NEGATIVE Urine Nitrite NEGATIVE Urine Bilirubin NEGATIVE Urine Urobilinogen 0.2 (NORMAL) Ur Leukocyte Esterase NEGATIVE Ur Microscopic Review NOT INDICATED Urine Culture Comments NOT INDICATED Salicylates Urine Opiates Screen NEGATIVE Ur Oxycodone Screen NEGATIVE Urine Methadone Screen NEGATIVE Ur Propoxyphene Screen NEGATIVE Acetaminophen Ur Barbiturates Screen NEGATIVE Ur Tricyclics Screen NEGATIVE Ur Phencyclidine Scrn NEGATIVE Ur Amphetamine Screen NEGATIVE U Methamphetamines Scrn NEGATIVE U Benzodiazepines Scrn NEGATIVE Urine Cocaine Screen NEGATIVE U Cannabinoids Screen NEGATIVE Ethyl Alcohol SARS-CoV-2 (PCR) NOT DETECTED 12/14/21 12/14/21 21:03 21:03 WBC RBC Hgb Hct MCV MCH MCHC RDW Plt Count MPV Neut # (Auto) Lymph # (Auto) [place] # (Auto) Eos # (Auto) Baso # (Auto) Absolute Nucleated RBC Nucleated RBC % Sodium 135 Potassium 3.8 Chloride 100 L Carbon Dioxide 25 Anion Gap 10.0 BUN 17 Creatinine 1.1 Estimated GFR (MDRD) 69 L Glucose 127 H Calcium 9.3 Total Bilirubin 0.7 AST 19 ALT 19 Alkaline Phosphatase 53 Total Protein 7.5 Albumin 4.3 Globulin 3.2 Albumin/Globulin Ratio 1.3 Lipase 40 TSH 2.62 Urine Color Urine Clarity Urine pH Ur Specific [place] Urine Protein Urine Glucose (UA) Urine Ketones Urine Occult Blood Urine Nitrite Urine Bilirubin Urine Urobilinogen Ur Leukocyte Esterase Ur Microscopic Review Urine Culture Comments Salicylates < 6.0 Urine Opiates Screen Ur Oxycodone Screen Urine Methadone Screen Ur Propoxyphene Screen Acetaminophen < 10 L Ur Barbiturates Screen Ur Tricyclics Screen Ur Phencyclidine Scrn Ur Amphetamine Screen U Methamphetamines Scrn U Benzodiazepines Scrn Urine Cocaine Screen U Cannabinoids Screen Ethyl Alcohol < 5.0 SARS-CoV-2 (PCR) PD MEDICAL DECISION MAKING - ED course Complexity details: reviewed old records, reviewed results, re-evaluated patient, considered differential, d/w patient ED course: presents voluntarily due to command AH to kill self and family. Medically cleared early in my shift but continues to await bed availability at end of my shift and thus care of patient signed out to oncoming ED physician. Tasha Correa was contacted early in my shift, reported bed availability but were revie wing/processing this case throughout the rest of my shift. Departure - Departure Disposition: 65 Psych Hosp/Unit DC/Xfer Clinical Impression: Bipolar affective disorder, Verbal auditory hallucination, Suicidal thoughts Condition: Stable Discharge Date/Time: 12/15/21 16:01
[2021-12-14 21:04] LABS: MUDS CUTOFF CONCENTRATIONS CUTOFF CONC BELOW:
[2021-12-14 21:09] LABS: BILIRUBIN,URINE NEGATIVE (NEGATIVE); GLUCOSE, URINE (UA) NEGATIVE (NEGATIVE); KETONES,URINE (UA) NEGATIVE (NEGATIVE); LEUKOCYTE ESTERASE, URINE NEGATIVE (NEGATIVE); NITRITE,URINE NEGATIVE (NEGATIVE); OCCULT BLOOD,URINE NEGATIVE (NEGATIVE); PROTEIN,URINE NEGATIVE (NEGATIVE); UROBILINOGEN,URINE 0.2 (NORMAL) E.U./dL (NORMAL)
[2021-12-14 21:19] LABS: CLARITY,URINE CLEAR (CLEAR)
[2021-12-14 21:20] LABS: BASOPHILS % (AUTO) 0.3 %; EOSINOPHILS # (AUTO) 0.2 10^3/uL (0.0-0.7); EOSINOPHILS % (AUTO) 2.2 %; HCT - HEMATOCRIT 39.9 % (42.0-52.0); HGB - HEMOGLOBIN 14.4 g/dL (14.0-18.0); LYMPHOCYTES # (AUTO) 1.6 10^3/uL (1.5-3.5); LYMPHOCYTES % (AUTO) 17.9 %; MEAN CORPUSCULAR HEMOGLOBIN 32.1 pg (27.0-31.0); MEAN CORPUSCULAR HGB CONC 36.1 g/dL (32.0-36.0); MEAN CORPUSCULAR VOLUME 89.1 fL (80.0-94.0); MEAN PLATELET VOLUME 9.7 fL (7.4-11.4); MONOCYTES # (AUTO) 0.8 10^3/uL (0.0-1.0); MONOCYTES % (AUTO) 9.3 %; NEUTROPHILS # (AUTO) 6.1 10^3/uL (1.5-6.6); NEUTROPHILS % (AUTO) 70.1 %; PLT - PLATELET COUNT 149 10^3/uL (130-450); RED BLOOD COUNT 4.48 10^6/uL (4.70-6.10); RED CELL DISTRIBUTION WIDTH 13.4 % (12.0-15.0); WHITE BLOOD COUNT 8.8 x10^3/uL (4.8-10.8)
[2021-12-14 21:26] LABS: ACETAMINOPHEN < 10 ug/mL (10-30); ALBUMIN 4.3 g/dL (3.2-5.5); ALBUMIN/GLOBULIN RATIO 1.3 (1.0-2.2); ALKALINE PHOSPHATASE 53 IU/L (42-121); ALT ALANINE AMINOTRANSFERASE 19 IU/L (10-60); AST ASPARTATE AMINOTRANSFERASE 19 IU/L (10-42); BILIRUBIN,TOTAL 0.7 mg/dL (0.2-1.0); BUN - BLOOD UREA NITROGEN 17 mg/dL (6-20); CALCIUM 9.3 mg/dL (8.5-10.3); CARBON DIOXIDE - CO2 25 mmol/L (21-32); CHLORIDE 100 mmol/L (101-111); CREATININE 1.1 mg/dL (0.6-1.2); ETOH - ETHANOL < 5.0 mg/dL; GFR - MDRD 69 (>89); GLUCOSE 127 mg/dL (70-100); LIPASE 40 U/L (22-51); POTASSIUM 3.8 mmol/L (3.5-5.0); SALICYLATE < 6.0 mg/dL; SODIUM 135 mmol/L (135-145); TOTAL PROTEIN 7.5 g/dL (6.7-8.2)
[2021-12-14 21:28] LABS: AMPHETAMINE SCREEN,URINE NEGATIVE (NEGATIVE); BARBITURATE SCREEN,UR NEGATIVE (NEGATIVE); BENZODIAZEPINES SCREEN, URINE NEGATIVE (NEGATIVE); COCAINE SCREEN URINE NEGATIVE (NEGATIVE); METHADONE SCREEN, URINE NEGATIVE (NEGATIVE); METHAMPHETAMINES SCREEN, URINE NEGATIVE (NEGATIVE); OPIATE SCREEN, URINE NEGATIVE (NEGATIVE); OXYCODONE SCREEN, URINE NEGATIVE (NEGATIVE); PROPOXYPHENE SCREEN, URINE NEGATIVE (NEGATIVE); THC CANNABINOID SCREEN, URINE NEGATIVE (NEGATIVE); TRICYCLIC ANTIDEPRESSANT,URINE NEGATIVE (NEGATIVE)
[2021-12-14] MEDS ORDERED: DIVALPROEX ER 250 MG TABLET PO STA (21:35)
[2021-12-14] MEDS ORDERED: PROPRANOLOL ER 80 MG CAPSULE PO STA (21:35)
[2021-12-14] MEDS ORDERED: TAMSULOSIN 0.4 MG CAPSULE PO STA (21:36)
[2021-12-14] MEDS ORDERED: ATORVASTATIN 10 MG TABLET PO STA (21:36)
[2021-12-14] MEDS ORDERED: traZODone 50 MG TABLET PO STA ×2 (21:36→23:43)
[2021-12-14] MEDS ORDERED: OLANZapine ODT 5 MG TABLET TL STA (23:43)
[2021-12-15] MEDS ORDERED: TAMSULOSIN 0.4 MG CAPSULE PO STA (09:34)
[2021-12-15] MEDS ORDERED: FUROSEMIDE 20 MG TABLET PO STA (09:34)
[2021-12-15] MEDS ORDERED: DIVALPROEX ER 250 MG TABLET PO SCH (10:00)
[2021-12-15] MEDS ORDERED: PROPRANOLOL ER 80 MG CAPSULE PO SCH (10:00)
--- NOTE | 2021-12-15 13:29 | ED Physician Documentation ---
ED Addendum - Addendum Addendum: 12/15/21 13:27 The patient remained calm cooperative and stable here in the ER. He states he feels comfortable here. He was given his usual morning doses of medicines. He had been being evaluated by [facility] psychiatric facility. Social work talked with him and touch back with [facility] to see if they were excepting. There is still reviewing the course as of late morning. Subsequently around lunchtime the did call back and say there were able to accept the patient. The patient was grateful for this and will be transferred in stable condition voluntarily by S ambulance. Disposition: The patient is transferred in stable condition to psychiatric facility. Diagnoses: 1. Suicidal ideation 2. Schizoaffective disorder 3. Auditory hallucinations with [employer]
[2021-12-15 13:37] VITALS: BP 135/72
== END 2021-12-15 16:01 ==
LOC: ED 20:59
DX: F31.9 Bipolar disorder, unspecified (principal); R45.851 Suicidal ideations; F25.9 Schizoaffective disorder, unspecified; F32.A Depression, unspecified; Z20.822 Contact with and (suspected) exposure to COVID-19
CPT/HCPCS: 36415; 80053; 80306; 80307; 81003; 83690; 84443; 85025; 87635; 93005; 99283; 99285; A9270; G0480; 80320; 80329; 81001; 87086

== ENCOUNTER 2022-01-25 08:00 | Outpatient (CLI) | payer MEDICARE, MEDICAID ==
[2022-01-27 11:10] LABS: SARS-COV-2 SEMI-QUANT IGG AB >800.0 AU/mL (Neg <13.0); SARS-COV-2 SPIKE AB INTERP Positive (.)
== END 2022-01-25 23:59 | disposition home or self-care (01) ==
LOC: LAB.N 08:00
PROVIDERS: ATTEND Emergency Medicine
DX: R43.9 Unspecified disturbances of smell and taste (principal)
CPT/HCPCS: 36415; 86769

== ENCOUNTER 2022-07-05 10:18 | Outpatient (CLI) | payer MEDICARE, MEDICAID ==
[2022-07-05 12:05] LABS: BASOPHILS % (AUTO) 0.2 %; EOSINOPHILS # (AUTO) 0.1 10^3/uL (0.0-0.7); EOSINOPHILS % (AUTO) 2.2 %; HCT - HEMATOCRIT 43.5 % (42.0-52.0); HGB - HEMOGLOBIN 14.8 g/dL (14.0-18.0); LYMPHOCYTES # (AUTO) 1.4 10^3/uL (1.5-3.5); LYMPHOCYTES % (AUTO) 21.9 %; MEAN CORPUSCULAR HEMOGLOBIN 30.4 pg (27.0-31.0); MEAN CORPUSCULAR VOLUME 89.3 fL (80.0-94.0); MEAN PLATELET VOLUME 10.1 fL (7.4-11.4); MONOCYTES # (AUTO) 0.5 10^3/uL (0.0-1.0); MONOCYTES % (AUTO) 7.5 %; NEUTROPHILS # (AUTO) 4.3 10^3/uL (1.5-6.6); NEUTROPHILS % (AUTO) 67.9 %; PLT - PLATELET COUNT 161 10^3/uL (130-450); RED BLOOD COUNT 4.87 10^6/uL (4.70-6.10); RED CELL DISTRIBUTION WIDTH 12.8 % (12.0-15.0); WHITE BLOOD COUNT 6.3 x10^3/uL (4.8-10.8)
[2022-07-05 12:30] LABS: ESTIMATED AVERAGE GLUCOSE 94 mg/dL (70-100); HEMOGLOBIN A1c% 4.9 % (4.27-6.07)
[2022-07-05 12:31] LABS: T4 (THYROXINE) 7.5 ug/dL (6.09-12.23)
[2022-07-05 12:36] LABS: THYROID STIMULATING HORMONE 1.76 uIU/mL (0.34-5.60)
[2022-07-05 12:37] LABS: FREE T4 (FREE THYROXINE) 0.88 ng/dL (0.58-1.64)
[2022-07-05 12:38] LABS: ALBUMIN 4.2 g/dL (3.2-5.5); ALBUMIN/GLOBULIN RATIO 1.4 (1.0-2.2); ALKALINE PHOSPHATASE 60 IU/L (42-121); ALT ALANINE AMINOTRANSFERASE 33 IU/L (10-60); AST ASPARTATE AMINOTRANSFERASE 28 IU/L (10-42); BILIRUBIN,TOTAL 0.9 mg/dL (0.2-1.0); BUN - BLOOD UREA NITROGEN 17 mg/dL (6-20); CARBON DIOXIDE - CO2 26 mmol/L (21-32); CHLORIDE 103 mmol/L (101-111); CHOL/HDL RATIO 3.7 (<5.0); CHOLESTEROL 171 mg/dL; GFR - MDRD 77 (>89); GLUCOSE 101 mg/dL (70-100); HDL CHOLESTEROL 46 mg/dL; LDL CHOLESTEROL,CALCULATED 94 mg/dL; POTASSIUM 4.1 mmol/L (3.5-5.0); SODIUM 137 mmol/L (135-145); TOTAL PROTEIN 7.2 g/dL (6.7-8.2); TRIGLYCERIDES 156 mg/dL; VLDL CHOLESTEROL 31 mg/dL
== END 2022-07-05 10:19 | disposition home or self-care (01) ==
LOC: LAB.N 10:18
PROVIDERS: ATTEND Psychiatry & Neurology Psychiatry
DX: Z79.899 Other long term (current) drug therapy (principal)
CPT/HCPCS: 36415; 80053; 80061; 82306; 83036; 83721; 84436; 84439; 84443; 84480; 85025

== ENCOUNTER 2023-02-14 08:00 | Outpatient (CLI) | payer MEDICARE, MEDICAID ==
[2023-02-14 18:43] LABS: FECAL OCCULT BLOOD (FIT) NEGATIVE (NEGATIVE)
== END 2023-02-14 23:59 | disposition home or self-care (01) ==
LOC: LAB.R 08:00
PROVIDERS: ATTEND Nurse Practitioner Family
DX: R19.5 Other fecal abnormalities (principal); R19.4 Change in bowel habit
CPT/HCPCS: 82274

== ENCOUNTER 2023-06-05 08:00 | Outpatient (CLI) | payer MEDICARE, MEDICAID | END 2023-06-05 23:59 | disposition home or self-care (01) | LOC: LAB.N 08:00 | PROVIDERS: ATTEND Physician Assistant | DX: R19.7 Diarrhea, unspecified (principal) | CPT/HCPCS: 87045; 87046; 87177; 87209; 87427 ==

== ENCOUNTER 2023-06-22 09:31 | Outpatient (CLI) | payer MEDICARE, MEDICAID ==
[2023-06-22 12:28] LABS: BASOPHILS % (AUTO) 0.4 %; EOSINOPHILS # (AUTO) 0.2 10^3/uL (0.0-0.7); EOSINOPHILS % (AUTO) 2.2 %; HCT - HEMATOCRIT 45.4 % (42.0-52.0); HGB - HEMOGLOBIN 15.4 g/dL (14.0-18.0); LYMPHOCYTES # (AUTO) 1.3 10^3/uL (1.5-3.5); LYMPHOCYTES % (AUTO) 18.8 %; MEAN CORPUSCULAR HEMOGLOBIN 30.9 pg (27.0-31.0); MEAN CORPUSCULAR HGB CONC 33.9 g/dL (32.0-36.0); MEAN PLATELET VOLUME 10.2 fL (7.4-11.4); MONOCYTES # (AUTO) 0.5 10^3/uL (0.0-1.0); MONOCYTES % (AUTO) 7.3 %; NEUTROPHILS # (AUTO) 4.9 10^3/uL (1.5-6.6); PLT - PLATELET COUNT 188 10^3/uL (130-450); RED BLOOD COUNT 4.99 10^6/uL (4.70-6.10); RED CELL DISTRIBUTION WIDTH 12.6 % (12.0-15.0); WHITE BLOOD COUNT 6.9 x10^3/uL (4.8-10.8)
[2023-06-22 12:54] LABS: THYROID STIMULATING HORMONE 1.08 uIU/mL (0.34-5.60)
[2023-06-22 12:55] LABS: ALBUMIN 4.6 g/dL (3.2-5.5); ALBUMIN/GLOBULIN RATIO 1.6 (1.0-2.2); ALKALINE PHOSPHATASE 69 IU/L (42-121); ALT ALANINE AMINOTRANSFERASE 28 IU/L (10-60); AST ASPARTATE AMINOTRANSFERASE 26 IU/L (10-42); BUN - BLOOD UREA NITROGEN 15 mg/dL (6-20); CALCIUM 9.9 mg/dL (8.5-10.3); CARBON DIOXIDE - CO2 30 mmol/L (21-32); CHLORIDE 102 mmol/L (101-111); CHOLESTEROL 124 mg/dL; CREATININE 1.1 mg/dL (0.6-1.3); ESTIMATED AVERAGE GLUCOSE 94 mg/dL (70-100); GFR - MDRD 69 (>89); GLUCOSE 99 mg/dL (74-104); HDL CHOLESTEROL 42 mg/dL; HEMOGLOBIN A1c% 4.9 % (4.27-6.07); LDL CHOLESTEROL,CALCULATED 54 mg/dL; LDL/HDL RATIO 1.3 (<3.6); POTASSIUM 4.3 mmol/L (3.5-4.5); SODIUM 136 mmol/L (135-145); TOTAL PROTEIN 7.4 g/dL (6.4-8.9); TRIGLYCERIDES 141 mg/dL (48-352); VLDL CHOLESTEROL 28 mg/dL
== END 2023-06-22 09:32 | disposition home or self-care (01) ==
LOC: LAB.N 09:31
PROVIDERS: ATTEND Nurse Practitioner Family
DX: I10 Essential (primary) hypertension (principal); Z79.899 Other long term (current) drug therapy; E78.5 Hyperlipidemia, unspecified; R19.5 Other fecal abnormalities; R19.4 Change in bowel habit; E66.9 Obesity, unspecified; Z12.5 Encounter for screening for malignant neoplasm of prostate
CPT/HCPCS: 36415; 80053; 80061; 83036; 84443; 85025; G0103; 83721; 84153

== ENCOUNTER 2023-12-15 11:59 | Day surgery (SDC) | payer MEDICARE, MEDICAID ==
[2023-12-15] MEDS: LACTATED RINGERS 1,000 ML IV ONE ×2 (12:28→14:11)
[2023-12-15] MEDS ORDERED: PROPOFOL 500 MG/50 ML 500 MG/50 ML VIAL ONE (12:55)
--- NOTE | 2023-12-15 13:04 | ANESTHESIA ---
Pre-Anesthesia VS, & Labs - Diagnosis screening - Procedure colonoscopy Vital Signs: Temp Pulse Resp BP Pulse Ox O2 Flow Rate 36.9 C 67 16 133/77 H 99 0 12/15/23 12:30 12/15/23 12:30 12/15/23 12:30 12/15/23 12:30 12/15/23 12:30 12/15/23 12:30 Height: 5 ft 6 in Weight (kg): 89.81 kg Body Mass Index: 31.9 BMI Classification: Obese - NPO Other (last at 9am) Home Medications and Allergies Home Medications: Ambulatory Orders Cariprazine HCl [Vraylar] 3 mg PO DAILY 12/14/23 Dextroamphetamine/Amphetamine [Adderall 10 mg Tablet] 5 mg PO BID 12/14/23 Eszopiclone [Lunesta] 3 mg PO DAILY 12/14/23 Gabapentin [Neurontin] 400 mg PO DAILY 12/14/23 LORazepam [Ativan] 0.5 mg PO ONCE PRN 12/14/23 Levomefolate Calcium [l-Methylfolate] 7.5 mg PO DAILY 12/14/23 OLANZapine [Olanzapine] 5 mg PO DAILY 12/14/23 Ropinirole HCl 0.5 mg PO DAILY 12/14/23 Atorvastatin [Lipitor] 10 mg ORAL DAILY 11/29/19 Propranolol [Inderal] 80 mg PO BID 07/07/21 Trazodone HCl 300 mg PO QPM PRN 07/07/21 Cariprazine HCl [Vraylar] 3 mg PO DAILY 12/14/23 Dextroamphetamine/Amphetamine [Adderall 10 mg Tablet] 5 mg PO BID 12/14/23 Eszopiclone [Lunesta] 3 mg PO DAILY 12/14/23 Gabapentin [Neurontin] 400 mg PO DAILY 12/14/23 LORazepam [Ativan] 0.5 mg PO ONCE PRN 12/14/23 Levomefolate Calcium [l-Methylfolate] 7.5 mg PO DAILY 12/14/23 OLANZapine [Olanzapine] 5 mg PO DAILY 12/14/23 Ropinirole HCl 0.5 mg PO DAILY 12/14/23 Allergies/Adverse Reactions: Allergies Allergy/AdvReac Type Severity Reaction Status Date / Time diphenhydramine Allergy Respiratory Verified 12/14/21 20:47 [From Benadryl] codeine AdvReac Emesis Verified 12/14/23 13:17 hydrocodone [From Vicodin] AdvReac Emesis Verified 12/14/21 20:47 Anes History & Medical History - Anesthetic History Anesthesia Complications: reports: No previous complications - Medical History Cardiovascular: reports: Hypertension, High cholesterol, Murmur (mitral regurg per pt, 1/6 murmur) Gastrointestinal: reports: GERD, Hiatal hernia Urinary: reports: Other Neuro: reports: Headaches Musculoskeletal: reports: Osteoarthritis, Fibromyalgia, Chronic back pain Endocrine/Autoimmune: reports: None Blood Disorders: reports: None Skin: reports: None Smoking Status: Never smoker - Surgical History General: reports: Colonoscopy, EGD Orthopedic: reports: Knee replacement, Arthroscopic surgery, Spine surgery, Other Exam General: Alert, Oriented x3 Dental: WNL Mouth Opening: Greater than 4 Fingerbreadths Neck Mobility: Normal Mallampati classification: II Thyromental Distance: greater than 6 cm Respiratory: Lungs clear Plan Anesthesia Type: Total IV Consent for Procedure(s) Verified and Reviewed: Yes Code Status: Attempt Resuscitation ASA classification: 2-Mild systemic disease Is this case an emergency?: No
[2023-12-15] MEDS ORDERED: LIDOCAINE-PF 2% 10 ML AMP SUBQ ONE (13:22)
--- NOTE | 2023-12-15 13:24 | HISTORY & PHYSICAL EXAMINATION ---
Chief Complaint - Chief Complaint Chief Complaint: here for colonoscopy History of Present Illness - History Obtained From Records Reviewed: yes History obtained from: pt Exam Limitations: none - History of Present Illness HPI Comment/Other: history colon polyps 2019. here for surveillance. History - Past Medical History Cardiovascular: reports: Hypertension, High cholesterol, Murmur (mitral regurg per pt, 04/22 murmur) Respiratory: reports: COPD Neuro: reports: Headaches Endocrine/Autoimmune: reports: None GI: reports: GERD, Hiatal hernia : reports: Other HEENT: reports: Other Psych: reports: Depression, Anxiety, Bipolar disorder, Panic attacks, ADD/ADHD Musculoskeletal: reports: Osteoarthritis, Fibromyalgia, Chronic back pain Derm: reports: None MRSA Hx?: No - Past Surgical History General: reports: Colonoscopy, EGD Ortho: reports: Knee replacement, Arthroscopic surgery, Spine surgery, Other - Family & Social History Family History Comment/Other: He reports his father from brain tumor in the last year. Mom is alive and in [facility] and healthy as far as they know x for undiagnosed mental illness. 1 brother but not in contact with him. No children. Reports no other medical history to his knowledge. Living Situation: With family, With legal guardian Social History Notes: He lives at home with his aunt who is also his professor of finance. He does not smoke and does not drink alcohol. He was fairly functional and working up until about 25 years ago when he had his mental breakdown. Continue to live with his mother and father in [facility]. It was not a healthy relationship according to the caregiver. He came up here to [facility] for few months to be with his aunt and was visiting her while her daughter was in active duty. He went back down to [facility] for a year and then came back up here to house it. He never went back. That was around 2017. - Substance History Use: Uses substance without health or social issues: NONE - POLST Patient has POLST: No POLST Status: Full Code Meds/Allgy - Home Medications Home Medications: Ambulatory Orders Medication Instructions Recorded Confirmed Atorvastatin [Lipitor] 10 mg ORAL DAILY 11/29/19 12/14/23 Propranolol [Inderal] 80 mg PO BID 07/07/21 12/15/23 Trazodone HCl 300 mg PO QPM PRN 07/07/21 12/14/23 Cariprazine HCl [Vraylar] 3 mg PO DAILY 12/14/23 12/15/23 Dextroamphetamine/Amphetamine 5 mg PO BID 12/14/23 12/15/23 [Adderall 10 mg Tablet] Eszopiclone [Lunesta] 3 mg PO DAILY 12/14/23 12/15/23 Gabapentin [Neurontin] 400 mg PO DAILY 12/14/23 12/15/23 LORazepam [Ativan] 0.5 mg PO ONCE PRN 12/14/23 12/15/23 Levomefolate Calcium 7.5 mg PO DAILY 12/14/23 12/15/23 [l-Methylfolate] OLANZapine [Olanzapine] 5 mg PO DAILY 12/14/23 12/15/23 Ropinirole HCl 0.5 mg PO DAILY 12/14/23 12/15/23 - Allergies Allergies/Adverse Reactions: Allergies Allergy/AdvReac Type Severity Reaction Status Date / Time diphenhydramine Allergy Respiratory Verified 12/14/21 20:47 [From Benadryl] codeine AdvReac Emesis Verified 12/14/23 13:17 hydrocodone [From Vicodin] AdvReac Emesis Verified 12/14/21 20:47 Review of Systems - Other Findings Other Findings: 10 pt ros as above otherwise unremarkable Exam - Vital Signs Vital Signs: Vital Signs x48h Temp Pulse Resp BP Pulse Ox O2 Flow Rate 12/15/23 12:30 36.9 C 67 16 133/77 H 99 0 - Physical Exam General Appearance: positive: No acute distress, Alert Eyes Bilateral: positive: Normal inspection, EOMI ENT: positive: No signs of dehydration Neck: positive: No JVD, Trachea midline Respiratory: positive: No respiratory distress Cardiovascular: positive: Regular rate & rhythm Neurologic/Psychiatric: positive: Oriented x3 Conclusion/Plan - Problem List (1) Colon cancer screening Conclusion/Plan: history colon polyps. plan colonoscopy. parq held and consent obtained
[2023-12-15] MEDS: SIMETHICONE 40 MG/0.6 ML 30 ML BOTTLE PO ONE (13:43)
--- NOTE | 2023-12-15 14:37 | ANESTHESIA POST OP EVALUATION ---
Anesthesia Post Eval - Post Anesthesia Eval Vitals: Last Vital Signs Temp 36.4 C L 12/15/23 14:30 Pulse 80 12/15/23 14:30 Resp 16 12/15/23 14:30 BP 125/80 12/15/23 14:30 Pulse Ox 98 12/15/23 14:30 O2 Flow Rate 0 12/15/23 12:30 CV Function Including HR & BP: Stable Pain Control: Satisfactory Nausea & Vomiting: Negative Mental Status: Baseline Respiratory Status: Airway Patent Hydration Status: Satisfactory Anesthesia Complications: None
[2023-12-15 14:42] VITALS: BP 125/80; O2SAT 98
== END 2023-12-15 12:00 | disposition home or self-care (01) ==
LOC: SDS 11:59
PROVIDERS: ATTEND Surgery
PROC: 0DBH8ZX Excision of Cecum, Via Natural or Artificial Opening Endoscopic, Diagnostic (ICD-10-PCS; 2023-12-15)
PROC: 0DBK8ZX Excision of Ascending Colon, Via Natural or Artificial Opening Endoscopic, Diagnostic (ICD-10-PCS; principal; 2023-12-15 13:00)
DX: Z12.11 Encounter for screening for malignant neoplasm of colon (principal); D12.0 Benign neoplasm of cecum; D12.2 Benign neoplasm of ascending colon; E66.9 Obesity, unspecified; I10 Essential (primary) hypertension; Z68.31 Body mass index [BMI] 31.0-31.9, adult
CPT/HCPCS: 45380; 45385; A9270; J7120

== ENCOUNTER 2023-12-21 14:15 | Emergency (ER) | payer MEDICARE, MEDICAID ==
[2023-12-21 14:37] VITALS: BP 127/60; O2SAT 97
--- NOTE | 2023-12-21 15:40 | ED Physician Documentation ---
History of Present Illness - Stated complaint Stated Complaint: NECK/SHOULD PX,SWAIN - Chief complaint Chief Complaint: Back Pain - Additonal information Additional information: 58-year-old male with history of hypertension, high cholesterol, heart murmur, headaches, COPD, hiatal hernia, depression, bipolar, anxiety presents emergency department for chronic neck and shoulder pain. Patient said that he had imaging complete at [facility] emergency department where he was told to have follow-up MRI and said that he did not end up pursuing this because he is actually feeling better in the last couple days he is feeling increased neck pain and tension. No fevers or chills no urinary or stool incontinence no history of IV drug use. Patient does report that he has history of surgery on his lower back but does not member what kind. No weakness able to ambulate with any difficulty. PD PAST MEDICAL HISTORY - Past Medical History Past Medical History: Yes Cardiovascular: Hypertension, High cholesterol, Murmur Respiratory: COPD Neuro: Headaches Endocrine/Autoimmune: None GI: GERD, Hiatal hernia : Other HEENT: Other Psych: Depression, Anxiety, Bipolar disorder, Panic attacks, ADD/ADHD Musculoskeletal: Osteoarthritis, Fibromyalgia, Chronic back pain Derm: None - Past Surgical History Past Surgical History: Yes General: Colonoscopy, EGD Ortho: Knee replacement, Arthroscopic surgery, Spine surgery, Other - Present Medications Home Medications: Ambulatory Orders Medication Instructions Recorded Confirmed Atorvastatin [Lipitor] 10 mg ORAL DAILY 11/29/19 12/14/23 Propranolol [Inderal] 80 mg PO BID 07/07/21 12/15/23 Trazodone HCl 300 mg PO QPM PRN 07/07/21 12/14/23 Cariprazine HCl [Vraylar] 3 mg PO DAILY 12/14/23 12/15/23 Dextroamphetamine/Amphetamine 5 mg PO BID 12/14/23 12/15/23 [Adderall 10 mg Tablet] Eszopiclone [Lunesta] 3 mg PO DAILY 12/14/23 12/15/23 Gabapentin [Neurontin] 400 mg PO DAILY 12/14/23 12/15/23 LORazepam [Ativan] 0.5 mg PO ONCE PRN 12/14/23 12/15/23 Levomefolate Calcium 7.5 mg PO DAILY 12/14/23 12/15/23 [l-Methylfolate] OLANZapine [Olanzapine] 5 mg PO DAILY 12/14/23 12/15/23 Ropinirole HCl 0.5 mg PO DAILY 12/14/23 12/15/23 Cyclobenzaprine [Flexeril] 10 mg PO TID PRN 6 Days #10 tablet 12/21/23 - Allergies Allergies/Adverse Reactions: Allergies Allergy/AdvReac Type Severity Reaction Status Date / Time diphenhydramine Allergy Respiratory Verified 12/21/23 14:36 [From Benadryl] codeine AdvReac Emesis Verified 12/21/23 14:36 hydrocodone [From Vicodin] AdvReac Emesis Verified 12/21/23 14:36 - Social History Does the pt smoke?: No Smoking Status: Never smoker Does the pt drink ETOH?: No Does the pt have substance abuse?: Yes - Immunizations Immunizations are current?: Yes - POLST Patient has POLST: No POLST Status: Full Code PD ED PE NORMAL - Vitals Vital signs reviewed: Yes - General General: Alert and oriented X 3, No acute distress, Well developed/nourished - HEENT HEENT: Atraumatic, PERRL, EOMI PD ED PE EXPANDED - Neck Neck: Supple w/out meningeal sx, Soft tissue TTP. No: Stiff neck, Brudzinki's, Kernig's, JVD present, Bony TTP, Limited ROM Results - Vitals Vitals: Vital Signs - 24 hr 12/21/23 14:25 Temperature 36.2 C L Heart Rate 71 Respiratory 16 Rate Blood Pressure 127/60 O2 Saturation 97 Oxygen O2 Source Room air PD Medical Decision Making - ED course ED course: 58-year-old male presents emergency department for concerns of chronic neck pain. Patient says after he was seen by [facility] emergency department and had x-rays he is supposed to follow-up for outpatient MRI but unfortunately did not do so because he was feeling better. Over the last couple days patient says that he has been having a new flare of his neck pain. He has not taken any Tylenol ibuprofen and was wondering if he could get an emergent MRI he unders tands this is not an emergency but was wondering if we were able to do so in the ER. Informed him that unfortunately he does not meet emergent criteria no unintentional weight loss no fevers or chills no history of IV drug use he does have a history of spinal surgery but he has no signs or symptoms of active infection making me concerned for possible spinal epidural abscess no headache no nausea or vomiting. He is told that he needs to pursue this outpatient with his primary care provider and he is understanding. He was given a prescription of Flexeril to his preferred pharmacy and he was given a lidocaine patch here as well as Toradol and Flexeril with improvement of symptoms. Return precautions given all questions answered patient is safe for discharge at this time. Departure - Departure Disposition: 01 Home, Self Care Clinical Impression: Chronic neck pain Instructions: ED Neck Pain No Trauma Prescriptions: Cyclobenzaprine [Flexeril] 10 mg PO TID PRN 6 Days #10 tablet PRN Reason: Spasms Comments: Thank you for trusting us with your care. I would strongly recommend you follow-up with your primary care provider for an outpatient MRI for further evaluation and workup. Please come back to the ER if you are having shortness of breath, fevers or chills, weakness in your legs, inability to walk, incontinence of stool or urine. Discharge Date/Time: 12/21/23 16:25
[2023-12-21] MEDS: CYCLOBENZAPRINE 10 MG TABLET PO STA (16:16)
[2023-12-21] MEDS: LIDOCAINE PATCH 4% TOP STA (16:17)
[2023-12-21] MEDS: KETOROLAC 30 MG/ML VIAL IM STA (16:17)
== END 2023-12-21 16:25 | disposition home or self-care (01) ==
LOC: ED 14:15
DX: M54.2 Cervicalgia (principal); G89.29 Other chronic pain; I10 Essential (primary) hypertension; E78.00 Pure hypercholesterolemia, unspecified; J44.9 Chronic obstructive pulmonary disease, unspecified; Z79.899 Other long term (current) drug therapy
CPT/HCPCS: 96372; 99283; A9270